=== PATIENT | male | born 1955 | race Caucasian/White ===

== ENCOUNTER 2024-02-23 19:19 | Inpatient (IN) | payer MEDICARE, SELFPAY ==
[2024-02-23] VITALS (8 sets, daily range): BP systolic 99–132; BP diastolic 53–80; PULSE 50–81; RESP 16–26; TEMP 37; O2SAT 95–97; BMI 31.3
--- NOTE | ~2024-02-23 | XR_ITS ---
EXAMINATION: XR CHEST CLINICAL INFORMATION: Weakness. COMPARISON: None available. TECHNIQUE: Frontal view of the chest was obtained. FINDINGS: Mild atelectasis at the right lung base with slight elevation of the right hemidiaphragm. Lungs otherwise clear. Cardiac and mediastinal contours are normal. No consolidation, pneumothorax, or pleural effusion. XR/XR chest 1V IMPRESSION: Mild right basilar atelectasis. No acute pulmonary findings.
--- NOTE | ~2024-02-23 | CT_ITS ---
EXAMINATION: CT ABDOMEN AND PELVIS WITHOUT IV CONTRAST CLINICAL INFORMATION: Abdominal pain, concern for stone COMPARISON: None TECHNIQUE: Multiple axial images were obtained from the superior aspect of the liver through the pubic symphysis without intravenous contrast. Images were evaluated on independent dedicated 3-D workstation and 3-D images were reconstructed with concurrent radiologist supervision and subsequently interpreted. Oral contrast was not administered. This CT examination was performed using dose optimization techniques as appropriate, variously including the following: *Automated exposure control *Adjustment of mA and/or kV according to patient size (this includes techniques or standardized protocols for targeted exams where dose is matched to indication/reason for exam; i.e. extremities or head) *Use of iterative reconstruction technique DLP: 9:30 mGy-cm FINDINGS: LUNG BASES: The visualized lung bases are clear. CARDIOMEDIASTINUM: The visualized heart is normal in size without pericardial effusion. No coronary artery calcification. LIVER: Homogeneous in attenuation. Enlarged measuring 19.6 cm in the midclavicular line.. GALLBLADDER: Dependently layering gallstone without CT evidence of cholecystitis. BILIARY SYSTEM: No intrahepatic or extrahepatic biliary dilation. PANCREAS: Homogeneous in attenuation. SPLEEN: Enlarged measuring 14.6 cm. GENITOURINARY: No contour deforming masses. Nonspecific perinephric stranding. No perinephric fluid collection. No renal calculi. No hydroureteronephrosis. Contracted and circumferentially thickened urinary bladder with perivesicular stranding. ADRENAL GLANDS: Unremarkable. REPRODUCTIVE: Prostate present. GASTROINTESTINAL: The visualized alimentary tract is normal in course. Pancolonic diverticular disease without diverticulitis. No evidence of obstruction. APPENDIX: The appendix is not visualized; however, no pericecal inflammatory changes are seen in the right lower quadrant. PERITONEUM: No pneumoperitoneum. No intra-abdominal fluid collection. VASCULATURE: No abdominal aortic aneurysm. Moderate infrarenal aortic atherosclerotic calcifications. LYMPH NODES: No pathologically enlarged abdominal or pelvic lymph nodes. SOFT TISSUES/MUSCULOSKELETAL: Multilevel degenerative changes of the thoracolumbar spine, most pronounced at L5-S1 where there is moderate bilateral neuroforaminal stenosis secondary to a disc osteophyte complex. Multilevel facet arthropathy. CT/CT abdomen pelvis wo IV con IMPRESSION: 1. Cystitis. No renal calculi are obstructive uropathy. 2. Cholelithiasis without CT evidence of cholecystitis. Fleischner guidelines were followed.
--- NOTE | 2024-02-23 19:33 | MHC.EDTECH ---
Patient came in by ambulance,patient requested to keep shirt on,event host placed,vitals taken,call perez in reach
--- NOTE | 2024-02-23 19:46 | ED_ITS ---
HPI - General Adult General Chief complaint: General Medical Stated complaint: dx of UTI on . No relief with medication Time Seen by Provider: 02/23/24 19:46 Source: patient and EMS Mode of arrival: EMS Limitations: no limitations History of Present Illness HPI narrative: Patient is a 68 year old assigned male at with a history of UTI presently on macrobid presenting to the emergency department today with worsening weakness, dizziness, and continued UTI symptoms. Patient states that he has been on an antibiotic for 3 days for a UTI and his symptoms have not improved. Patient states that he is having lower abdominal pain, weakness, and dizziness. Patient denies any lightheadedness, nausea, vomiting, fever, chills, blurry vision, double vision, loss of vision, chest pain, difficulty breathing, shortness of breath, back pain, night sweats, blood in his urine or stool, syncope or a near syncopal episode, recent trauma or falls, bowel incontinence, bladder incontinence, bowel retention, bladder retention, or any other complaints at this time. Onset (ago): day(s) Relieving factors: none Exacerbating factors: none Associated symptoms: denies other symptoms Treatments prior to arrival: other (macrobid x3 days) Related Data Home Medications ?Medication ?Instructions ?Recorded ?Confirmed rosuvastatin 20 mg tablet 10 mg PO DAILY 02/24/24 02/24/24 Allergies Allergy/AdvReac Type Severity Reaction Status Date / Time No Known Allergies Allergy Verified 02/23/24 19:32 Review of Systems 2 Constitutional: Constitutional: Reports no additional constitutional complaints, Denies chills, Denies fever(s) and Denies night sweats Eyes: Eyes: Reports no additional eye complaints, Denies blurry vision, Denies change in vision, Denies diplopia, Denies eye discharge, Denies loss of vision and Denies eye pain ENT: Denies dizziness Cardiovascular: Cardiovascular: Reports no additional cardiovascular complaints, Denies chest pain, Denies lightheadedness, Denies Loss of Consciousness and Denies dyspnea Respiratory: Respiratory: Reports no additional respiratory complaints and Denies dyspnea Gastrointestinal: Gastrointestinal: Reports no additional gastrointestinal complaints, Reports abdominal pain, Denies melena, Denies hematochezia, Denies change in bowel habits and Denies change in stool character Genitourinary: Genitourinary: Reports no additional male genitourinary complaints, Denies hematuria, Denies oliguria, Denies difficulty urinating, Reports dysuria, Reports urinary frequency, Denies urinary hesitancy, Denies urinary incontinence and Denies urinary urgency Musculoskeletal: Musculoskeletal: Reports no additional musculoskeletal complaints, Denies numbness and Denies tingling Neurologic: Denies dizziness, Denies loss of vision, Denies numbness and Denies tingling Psychiatric: Psychiatric: Reports no additional psychiatric complaints Endocrine: Endocrine: Reports no additional endocrine complaints Hematologic/Lymphatic: Hematologic/Lymphatic: Reports no additional hematologic/lymphatic complaints Allergic/Immunologic: Allergic/Immunologic: Reports no additional allergic/immunologic complaints PMFSH Past Medical History Attestation statement: The following information was validated with the patient. Source: old records reviewed and nursing notes reviewed Medical History (Updated 02/24/24 @ 02:09 by Irina Mcdaniel MD) Hyperlipidemia Essential hypertension Obstructive sleep apnea on CPAP Surgical History (Updated 02/24/24 @ 02:09 by Irina Mcdaniel MD) Previous back surgery H/O knee surgery History of ankle surgery S/P appendectomy Social History Social History Advance Directives: No Advance Directives Information Provided: No Do you have a plan to hurt others: No Plan Physical Exam ED Vital Signs: Vital Signs - 24 hr 02/23/24 19:30 02/23/24 20:07 02/23/24 20:45 Temperature 98.6 F 98.6 F Pulse Rate 72 60 66 Respiratory Rate 26 H 20 20 Blood Pressure 130/70 116/61 105/55 L Pulse Oximetry 96 96 96 Oxygen Delivery Method Room Air Room Air Room Air 02/23/24 21:17 02/23/24 21:36 02/23/24 22:07 Temperature Pulse Rate 54 52 50 Respiratory Rate 18 18 18 Blood Pressure 99/54 L 106/54 L 101/53 L Pulse Oximetry 96 96 96 Oxygen Delivery Method Room Air Room Air Room Air 02/23/24 23:25 Temperature Pulse Rate 51 Respiratory Rate 16 Blood Pressure 117/68 Pulse Oximetry 97 Oxygen Delivery Method Room Air BMI result Body Mass Index 31.3 Const General: cooperative, no acute distress, alert and awake Nutritional Appearance: well nourished Orientation/consciousness: patient oriented x3 Limitations: no limitations HENMT Head: Yes normal to inspection and Yes atraumatic Ears: hearing grossly normal bilaterally and external ears normal General nose exam: Normal external nose present, no nasal discharge noted and no epistaxis Face and sinus: Yes normal facial exam, No abrasion and No laceration Mouth: Normal oral and palatal mucosa present, no drooling and no muffled voice Eyes General: appearance normal, both eyes and all related structures Periorbital: periorbital findings normal Eyelids: Yes eyelids normal Conjunctivae: conjunctivae normal Pupils: Equal, round and reactive pupils present EOM: EOMs intact bilaterally Neck Neck: Yes normal visual inspection, Yes full ROM and Yes no lymphadenopathy Chest Chest palpation & inspection: normal inspection of the chest Resp Effort & Inspection: normal respiratory effort and able to speak in complete sentences GI Inspection: Yes normal to inspection Palpation (GI): Soft to palpation, not firm, Tenderness to palpation present (GI) suprapubicly, no guarding and not rigid Neuro General: patient oriented x3 and moves all extremities Cranial nerves: Yes Equal, round and reactive pupils present Cognition (Neuro): normal cognition Motor exam (neuro): 5/5 motor strength present throughout Sensory Exam: Normal double simultaneous stimulation for sensation Coordination: [id number] test normal Extrem General: Yes normal to inspection, Yes full ROM and Yes capillary refill normal Psych Appearance: grossly normal Mental Status: mental status grossly normal Affect: normal affect Attitude: cooperative Thought process: Normal thought process present Thought content: Normal thought content present Insight: Good insight present (Psych) Medications Administered Generic Name Dose Route Start Last Admin Trade Name Freq PRN Reason Stop Dose Admin Lactated Ringer's 1,000 mls @ 125 mls/hr 02/24/24 01:15 02/24/24 01:19 Lr IVCONT 02/24/24 13:14 125 mls/hr .Q8H SIMONE Administration Discontinued Medications Generic Name Dose Route Start Last Admin Trade Name Freq PRN Reason Stop Dose Admin Acetaminophen 975 mg 02/23/24 19:58 02/23/24 20:11 Acetaminophen 325 Mg Tablet PO 02/23/24 19:59 975 mg ONCE ONE Administration Sodium Chloride 1,000 mls @ 999 mls/hr 02/23/24 20:00 02/23/24 21:24 Ns IV 02/23/24 21:00 Infused .Q1H1M SIMONE Infusion Ceftriaxone Sodium 1 gm/ 50 mls @ 100 mls/hr 02/23/24 19:52 02/23/24 20:40 Sodium Chloride IV 02/23/24 20:21 Infused ONCE ONE Infusion Sodium Chloride 1,000 mls @ 999 mls/hr 02/23/24 21:30 02/24/24 00:32 Ns IV 02/23/24 22:30 Infused .Q1H1M SIMONE Infusion Potassium Chloride 10 meq in 100 mls @ 100 mls/hr 02/23/24 21:30 02/23/24 23:23 Potassium Chloride/H20 IV 02/23/24 23:29 Infused Q1H SIMONE Infusion Ketorolac Tromethamine 15 mg 02/23/24 19:58 02/23/24 20:10 Ketorolac Tromethamine 15 Mg/Ml Vial IVPUSH 02/23/24 19:59 15 mg ONCE ONE Administration Ondansetron HCl 4 mg 02/23/24 19:51 02/23/24 20:06 Ondansetron Hcl 4 Mg/2 Ml Vial IVPUSH 02/23/24 19:52 4 mg ONCE ONE Administration Medical Decision Making Medical Decision Making [facility] Narrative: Patient is a 68 year old assigned male at with a history of UTI presently on macrobid presenting to the emergency department today with worsening weakness, dizziness, and continued UTI symptoms. Patient's physical exam was as noted in the physical exam portion of this note. Patient's blood work showed a sodium of 134, potassium of 2.9, BUN of 22, magnesium of 1.5, total bili of 1.7, and direct bili of 0.7. Patient's urine showed no acute process. Patient's EKG was unremarkable. Patient's chest x-ray showed no acute process. Patient's CT abdomen/pelvis showed cystitis and cholelithiasis with no cholecystitis. Patient's clincal presentation is not consistent with sepsis (@0026). Patient was given IV ceftriaxone, potassium, and fluids. I spoke to the hospitalist who agreed to admission for continued IV antibiotics and electrolyte replenishment. I explained my physical exam findings as well as all test results to the patient. I answered all questions asked by the patient. Patient verbalized agreement and understanding with this treatment plan and admission. Differential Diagnosis Differential Diagnoses: The differential diagnosis associated with the presentation includes Urinary tract infection Cystitis Hypomagensemia Hypokalemia Hyponatremia Admission/Observation Consideration of admission/observation: Escalation of care including admission/observation considered Patient admitted. Consult Healthcare Provider Management of the patient was discussed with: Hospitalist (agreed to admission as noted in the MDM Rationale portion of this note.) Lab Data [facility] Lab Attestation statement: I reviewed the patient's lab results. My interpretation of these results are in the MDM Rationale portion of this note. 02/23/24 19:49 02/23/24 19:49 Labs: Lab Results 02/23/24 02/23/24 02/23/24 Range/Units 19:49 21:14 23:39 WBC 5.9 (4.8-10.8) X10*3/uL RBC 4.08 L (4.60-5.80) X10*6/uL Hgb 13.2 L (14.0-18.0) g/dl Hct 35.7 L (42.0-52.0) % MCV 87.5 (80.0-98.0) fL MCH 32.4 (27.0-33.0) pg MCHC 37.0 H (31.0-36.0) g/dl RDW 12.7 (11.0-16.0) % Plt Count 121 L (160-400) X10*3/uL MPV 11.6 (9.4-12.4) fL Immature Gran % (Auto) 0.7 H (0.0-0.4) % Neut % (Auto) 75.3 H (45-73) % Lymph % (Auto) 8.5 L (20-40) % [place] % (Auto) 14.9 H (2-11) % Eos % (Auto) 0.3 (0-4) % Baso % (Auto) 0.3 (0-2) % Lymph # (Auto) 0.5 L (1.2-4.9) X10*3/uL [place] # (Auto) 0.9 (0.1-1.2) X10*3/uL Eos # (Auto) 0.0 (0.0-0.4) X10*3/uL Baso # (Auto) 0.0 (0.0-0.2) X10*3/uL Abs Immat Gran (auto) 0.04 H (0.00-0.03) X10*3/uL Absolute Neuts (auto) 4.5 (2.0-8.3) x10*3/uL Absolute Nucleated RBC 0.030 H (0.0-0.012) X10*3/uL Nucleated RBC % (auto) 0.5 H (0.0-0.2) /100WBC Smear Tech's Comments VERIFIED Sodium 134 L (135-145) mmol/L Potassium 2.9 L* (3.3-5.1) mmol/L Chloride 99 (96-108) mmol/L Carbon Dioxide 23 (22-29) mmol/L Anion Gap 15 (12-20) BUN 22 H (9-16) mg/dL Creatinine 1.01 (0.5-1.4) mg/dL Estim Creat Clear Calc 97.6 Estimated GFR > 60 Random Glucose 150 H (60-115) mg/dL Lactic Acid 1.1 (0.5-2.0) mmol/L Calcium 9.3 (8.4-10.2) mg/dL Magnesium 1.5 L (1.6-2.6) mg/dL Total Bilirubin 1.7 H (0.0-1.0) mg/dL Direct Bilirubin 0.7 H (0.0-0.5) mg/dL AST 36 (5-37) U/L ALT 33 (0-40) U/L Alkaline Phosphatase 44 (39-117) U/L Troponin I High Sens 11.1 6.7 (<3.5-35.0) ng/L Total Protein 6.8 (6.5-8.0) g/dL Albumin 3.7 (3.5-5.0) g/dL Urine Color Dark Yellow Urine Appearance Clear Urine pH 6.0 (5.0-9.0) Ur Specific [place] 1.025 (1.005-1.025) Urine Protein 100 (2+) H (Neg-Trace) mg/dL Urine Glucose (UA) Negative (Negative) mg/dL Urine Ketones Trace (Negative) mg/dL Urine Blood Negative (Negative) Urine Nitrite Negative (Negative) Ur Leukocyte Esterase Trace H (Negative) Urine RBC 0-2 (0-2) /HPF Urine WBC 0-5 (0-5) /HPF Ur Squamous Epith Cells 3-5 (0-2) /HPF Urine Bacteria None Seen (None Seen) Hyaline Casts 3-5 (0-2) /LPF Influenza Type A (PCR) NEGATIVE (Negative) Influenza Type B (PCR) NEGATIVE (Negative) RSV RNA Qual (PCR) NEGATIVE (Negative) SARS-CoV-2 RNA (RT-PCR) NEGATIVE (Negative) Independent Interpretation I performed an independent interpretation of an: EKG, Plain X-Ray and CT Scan Interpretation: My interpretation is in agreement with the radiologist's impression of these imaging studies. - EXAMINATION: XR CHEST CLINICAL INFORMATION: Weakness. COMPARISON: None available. TECHNIQUE: Frontal view of the chest was obtained. FINDINGS: Mild atelectasis at the right lung base with slight elevation of the right hemidiaphragm. Lungs otherwise clear. Cardiac and mediastinal contours are normal. No consolidation, pneumothorax, or pleural effusion. XR/XR chest 1V IMPRESSION: Mild right basilar atelectasis. No acute pulmonary findings. Dictated By: Harvinder Downing MD Signed By: Electronically signed by Harvinder Downing MD 02/24/24 0035 - EXAMINATION: CT ABDOMEN AND PELVIS WITHOUT IV CONTRAST CLINICAL INFORMATION: Abdominal pain, concern for stone COMPARISON: None TECHNIQUE: Multiple axial images were obtained from the superior aspect of the liver through the pubic symphysis without intravenous contrast. Images were evaluated on independent dedicated 3-D workstation and 3-D images were reconstructed with concurrent radiologist supervision and subsequently interpreted. Oral contrast was not administered. This CT examination was performed using dose optimization techniques as appropriate, variously including the following: *Automated exposure control *Adjustment of mA and/or kV according to patient size (this includes techniques or standardized protocols for targeted exams where dose is matched to indication/reason for exam; i.e. extremities or head) *Use of iterative reconstruction technique DLP: 9:30 mGy-cm FINDINGS: LUNG BASES: The visualized lung bases are clear. CARDIOMEDIASTINUM: The visualized heart is normal in size without pericardial effusion. No coronary artery calcification. LIVER: Homogeneous in attenuation. Enlarged measuring 19.6 cm in the midclavicular line.. GALLBLADDER: Dependently layering gallstone without CT evidence of cholecystitis. BILIARY SYSTEM: No intrahepatic or extrahepatic biliary dilation. PANCREAS: Homogeneous in attenuation. SPLEEN: Enlarged measuring 14.6 cm. GENITOURINARY: No contour deforming masses. Nonspecific perinephric stranding. No perinephric fluid collection. No renal calculi. No hydroureteronephrosis. Contracted and circumferentially thickened urinary bladder with perivesicular stranding. ADRENAL GLANDS: Unremarkable. REPRODUCTIVE: Prostate present. GASTROINTESTINAL: The visualized alimentary tract is normal in course. Pancolonic diverticular disease without diverticulitis. No evidence of obstruction. APPENDIX: The appendix is not visualized; however, no pericecal inflammatory changes are seen in the right lower quadrant. PERITONEUM: No pneumoperitoneum. No intra-abdominal fluid collection. VASCULATURE: No abdominal aortic aneurysm. Moderate infrarenal aortic atherosclerotic calcifications. LYMPH NODES: No pathologically enlarged abdominal or pelvic lymph nodes. SOFT TISSUES/MUSCULOSKELETAL: Multilevel degenerative changes of the thoracolumbar spine, most pronounced at L5-S1 where there is moderate bilateral neuroforaminal stenosis secondary to a disc osteophyte complex. Multilevel facet arthropathy. CT/CT abdomen pelvis wo IV con IMPRESSION: 1. Cystitis. No renal calculi are obstructive uropathy. 2. Cholelithiasis without CT evidence of cholecystitis. Fleischner guidelines were followed. Dictated By: Quirino Liriano Signed By: Electronically signed by Quirino Liriano 02/23/24 2205 - Vent. Rate: 052 BPM Atrial Rate: 052 BPM P-R Int: 158 ms QRS Dur: 110 ms QT Int: 476 ms P-R-T Axes: 035 -38 -13 degrees QTc Int: 442 ms Sinus bradycardia Left axis deviation Nonspecific ST and T wave abnormality Abnormal ECG No previous ECGs available DD/ [id number] Radiology Impression Discussion of test interpretation with radiology: I have reviewed the radiologist's reading. Independent Historian Clinical information obtained from an independent historian. History obtained from or confirmed by: EMS (EMS provided additional history and confirmed the history provided by the patient.) Critical Care Time Critical Care Time Critical Care Time: Yes Total Critical Care Time: 122 Attestation: I spent 122 minutes of Critical Care Time with this patient. This does not include time spent on separately reported billable procedures. Discharge Plan Discharge Clinical Impression: Acute UTI, Hypomagnesemia, Hypokalemia Patient Disposition: Admitted As Inpatient Interventions: Admission Worksheet (ED) Last Done: 02/24/24 02:09
[2024-02-23] MEDS: ondansetron HCL 4 MG/2 ML VIAL IVPUSH (20:06)
[2024-02-23] MEDS: 0.9 % Sodium Chloride 1,000 ML 999 ML IV ×2 (20:06→21:28)
[2024-02-23] MEDS: cefTRIAXone sodium 1 GM in 0.9 % Sodium Chloride 50 ML IV (20:07)
[2024-02-23] MEDS: Ketorolac Tromethamine 15 MG/ML VIAL IVPUSH (20:10)
[2024-02-23] MEDS: Acetaminophen 325 MG TABLET 975 MG PO (20:11)
[2024-02-23 20:33] LABS: Lactic Acid 1.1 mmol/L (0.5-2.0)
[2024-02-23 20:42] LABS: Influenza A PCR NEGATIVE (Negative); Influenza B PCR NEGATIVE (Negative); Resp Syncy Virus RNA Qual PCR NEGATIVE (Negative); SARS COV2 PCR INHOUSE NEGATIVE (Negative)
--- NOTE | 2024-02-23 20:47 | MHC.EDTECH ---
Patient requested ice water,vitals taken,patient is attempted to give a urine sample at this time.
[2024-02-23 20:49] LABS: Alanine Aminotransferase 33 U/L (0-40); Albumin Level 3.7 g/dL (3.5-5.0); Alkaline Phosphatase 44 U/L (39-117); Anion Gap 15 (12-20); Aspartate Amino Transferase 36 U/L (5-37); Bilirubin Direct 0.7 mg/dL (0.0-0.5); Bilirubin Total 1.7 mg/dL (0.0-1.0); Blood Urea Nitrogen 22 mg/dL (9-16); Calcium 9.3 mg/dL (8.4-10.2); Carbon Dioxide 23 mmol/L (22-29); Chloride 99 mmol/L (96-108); Creatinine Clr Calc Pharmacy 97.6; Estimated Glomerular Filt Rate > 60; Glucose Random 150 mg/dL (60-115); Magnesium 1.5 mg/dL (1.6-2.6); Potassium 2.9 mmol/L (3.3-5.1); Sodium 134 mmol/L (135-145); Total Protein 6.8 g/dL (6.5-8.0)
--- NOTE | 2024-02-23 21:15 | MHC.EDTECH ---
Patient urinated 200MLS in urinal,urine sample collected and sent to lab.
--- NOTE | 2024-02-23 21:17 | MHC.EDTECH ---
Vitals taken,BP is low 99/54 HR 54 RN was made aware
--- NOTE | 2024-02-23 21:19 | PC.NURSE ---
Provider made aware of BP trending down. Plan for additional Nacl bolus.
[2024-02-23 21:23] LABS: Appearance Urine Clear; Color Urine Dark Yellow; Glucose Urine UA Negative (Negative); Leukocyte Esterase Urine Trace (Negative); Nitrite Urine Negative (Negative); Specific Gravity - Urine 1.025 (1.005-1.025); UMIC TRIGGER UACC YES; Urine Blood Negative (Negative); Urine Ketones Trace mg/dL (Negative); Urine Protein 100 (2+) mg/dL (Neg-Trace)
[2024-02-23] MEDS: Potassium Chloride/H20 10 MEQ/100 ML PIGGYBACK 100 MEQ IV ×2 (21:27→22:25)
[2024-02-23 21:29] LABS: Basophils Percent Auto 0.3 % (0-2); Eosinophils Percent Auto 0.3 % (0-4); Hematocrit 35.7 % (42.0-52.0); Hemoglobin 13.2 g/dl (14.0-18.0); Imm Gran Abs Auto 0.04 X10*3/uL (0.00-0.03); Imm Gran Pct Auto 0.7 % (0.0-0.4); Lymphocytes Absolute Auto 0.5 X10*3/uL (1.2-4.9); Lymphocytes Percent Auto 8.5 % (20-40); MANUAL DIFF FLAG SCAN; Mean Corpuscular Hemoglobin 32.4 pg (27.0-33.0); Mean Corpuscular Volume 87.5 fL (80.0-98.0); Mean Platelet Volume 11.6 fL (9.4-12.4); Monocytes Absolute Auto 0.9 X10*3/uL (0.1-1.2); Monocytes Percent Auto 14.9 % (2-11); NRBC Pct Auto 0.5 /100WBC (0.0-0.2); Neutrophils Absolute Auto 4.5 x10*3/uL (2.0-8.3); Neutrophils Percent Auto 75.3 % (45-73); PLT CLUMP 1; Red Blood Count 4.08 X10*6/uL (4.60-5.80); Red Cell Distribution Width 12.7 % (11.0-16.0); SCAN SMEAR FLAG 1
[2024-02-23 21:31] LABS: Bacteria Urine None Seen (None Seen); RBC Urine 0-2 /HPF (0-2); WBC Urine 0-5 /HPF (0-5)
[2024-02-23 21:46] LABS: Platelet Count 121 X10*3/uL (160-400); SLIDE REVIEW VERIFIED; White Blood Count 5.9 X10*3/uL (4.8-10.8)
--- NOTE | 2024-02-23 22:53 | PC.NURSE ---
Update given to [place] pt significant other.
--- NOTE | 2024-02-23 22:58 | ECG_ITS ---
Test Reason : diaphoresis Blood Pressure : / mmHG Vent. Rate : 052 BPM Atrial Rate : 052 BPM P-R Int : 158 ms QRS Dur : 110 ms QT Int : 476 ms P-R-T Axes : 035 -38 -13 degrees QTc Int : 442 ms Sinus bradycardia Left axis deviation Nonspecific ST and T wave abnormality Abnormal ECG No previous ECGs available Referred By: Mirta Gutierrez Electronically Signed By:KARINE GARCIA
[2024-02-23 23:24] LABS: Troponin-I High Sensitivity 11.1 ng/L (<3.5-35.0)
[2024-02-24] VITALS (7 sets, daily range): BP systolic 97–140; BP diastolic 54–75; PULSE 43–64; RESP 18–20; TEMP 36.3–36.4; O2SAT 96–98
[2024-02-24 00:06] LABS: Troponin-I High Sensitivity 6.7 ng/L (<3.5-35.0)
--- NOTE | 2024-02-24 01:08 | P.HPHOSP_ITS ---
History of Present Illness Date of Service: 02/24/24 Attending physician on admission: Irina Mcdaniel Chief Complaint: Fatigue Zach Ortiz is a very pleasant 68 years old man with past medical history significant for hypertension on (hydrochlorothiazide and carvedilol), DARIAN on CPAP and hyperlipidemia presents to the emergency department complaining of fatigue and generalized malaise. He had fever spike last night of 103. He was diagnosed with UTI last and has been taking a course of nitrofurantoin as he has been having acute urinary symptoms including urinary frequency, pain with urination noted his urine was dark. No urinalysis done. He reported discomfort to the lower abdomen and I sore throat, ear pain, chest pain, shortness on breath or cough. He also denied diarrhea or constipation. Denies tobacco smoking, alcohol abuse or illicit drug use. Abdominal surgery history is remarkable for appendectomy. In the ED, he was found to have stable vital signs. There is no fever or tachycardia reported. His heart rate has been fluctuating between 50 and 66 bpm. Blood workup showed no leukocytosis. There is monocytosis and lymphopenia. Potassium is 2.9 and magnesium is 1.7. Total bilirubin is 1.7 (direct 0.7). Transaminases, alk-phos and albumin are normal. Troponin is negative x2. Urinalysis showed protein 2+, trace ketones, negative blood, negative nitrate, trace leukocytes steroids, RBC 0-2, WBCs 0-2, and 3-5 epithelial cells. CXR is negative for infection. Abdominal pelvis CT scan with IV contrast showed findings consistent with cystitis, no obstructive uropathy and cholelithiasis without CT evidence of cholecystitis. ED tx: NS 2 L bolus, Zofran 4 mg IV, ceftriaxone 1 g, ketorolac 15 mg IV, acetaminophen 975 mg p.o. and KCl. Review of Systems 2 Review of Systems: All 12 systems were reviewed and normal except as noted in HPI. [facility] Medical History (Updated 02/24/24 @ 02:09 by Irina Mcdaniel MD) Hyperlipidemia Essential hypertension Obstructive sleep apnea on CPAP Surgical History (Updated 02/24/24 @ 02:09 by Irina Mcdaniel MD) Previous back surgery H/O knee surgery History of ankle surgery S/P appendectomy Social History Advance Directives: No Advance Directives Information Provided: No Do you have a plan to hurt others: No Plan Meds Allergies Allergy/AdvReac Type Severity Reaction Status Date / Time No Known Allergies Allergy Verified 02/23/24 19:32 Active Medications: Current Medications Acetaminophen (Acetaminophen Supp 325 Mg Supp.Rect) 975 mg MA Q6H PRN PRN Reason: mild pain, headache or fever Carvedilol (Carvedilol 12.5 Mg Tablet) 12.5 mg PO ONCE ONE; Protocol Stop: 02/25/24 09:01 Lactated Ringer's (Lr) 1,000 mls @ 125 mls/hr IVCONT .Q8H SIMONE Stop: 02/24/24 13:14 Ceftriaxone Sodium 1 gm/ (Sodium Chloride) 50 mls @ 100 mls/hr IV Q24H SIMONE Sodium Chloride (0.9 % Sodium Chloride Flush 3 Ml Syringe) 3 ml IVFLUSH QSHIFT SIMONE Home Medications ?Medication ?Instructions ?Recorded ?Confirmed ?Last Taken ?Type rosuvastatin 20 mg tablet 10 mg PO DAILY 02/24/24 02/24/24 Unknown History Physical Exam 2 Vital Signs and Narrative: Vital Signs: Last Vital Signs Temp 98.6 F 02/23/24 20:45 Pulse 51 02/23/24 23:25 Resp 16 02/23/24 23:25 BP 117/68 02/23/24 23:25 Pulse Ox 97 02/23/24 23:25 O2 Del Method Room Air 02/23/24 23:25 BMI result Body Mass Index 31.3 Constitutional - Awake and Alert, No apparent distress. Sleeping soundly. Acutely ill appearance. Pleasant and cooperative. HEENT - Pupils equally round. Normal sclerae. Heart - Bradycardia. Normal rate. No murmur. Lungs - Normal lung expansion, Normal respiratory effort, No respiratory distress, CTA bilaterally Gastrointestinal - NT / ND; +BS; No rebound or guarding Extremities - no calf tenderness bilaterally, no swelling Musculoskeletal - Normal inspection, normal ROM Skin - Warm/Dry Neurological - Alert & oriented x3. No focal weakness grossly noted Psychological - Appropriate affect Results Labs 02/23/24 19:49 02/23/24 19:49 Labs: Laboratory Results - last 24 hr 02/23/24 02/23/24 02/23/24 19:49 21:14 23:39 MCV 87.5 MCH 32.4 MCHC 37.0 H RDW 12.7 Plt Count 121 L MPV 11.6 Immature Gran % (Auto) 0.7 H Neut % (Auto) 75.3 H Lymph % (Auto) 8.5 L [place] % (Auto) 14.9 H Eos % (Auto) 0.3 Baso % (Auto) 0.3 Lymph # (Auto) 0.5 L [place] # (Auto) 0.9 Eos # (Auto) 0.0 Baso # (Auto) 0.0 Abs Immat Gran (auto) 0.04 H Absolute Neuts (auto) 4.5 Absolute Nucleated RBC 0.030 H Nucleated RBC % (auto) 0.5 H Smear Tech's Comments VERIFIED Anion Gap 15 Estim Creat Clear Calc 97.6 Estimated GFR > 60 Random Glucose 150 H Lactic Acid 1.1 Calcium 9.3 Magnesium 1.5 L Total Bilirubin 1.7 H Direct Bilirubin 0.7 H AST 36 ALT 33 Alkaline Phosphatase 44 Troponin I High Sens 11.1 6.7 Total Protein 6.8 Albumin 3.7 Urine Color Dark Yellow Urine Appearance Clear Urine pH 6.0 Ur Specific [place] 1.025 Urine Protein 100 (2+) H Urine Glucose (UA) Negative Urine Ketones Trace Urine Blood Negative Urine Nitrite Negative Ur Leukocyte Esterase Trace H Urine RBC 0-2 Urine WBC 0-5 Ur Squamous Epith Cells 3-5 Urine Bacteria None Seen Hyaline Casts 3-5 Influenza Type A (PCR) NEGATIVE Influenza Type B (PCR) NEGATIVE RSV RNA Qual (PCR) NEGATIVE SARS-CoV-2 RNA (RT-PCR) NEGATIVE Imaging Radiologist's Impressions: Impressions Abdomen/Pelvis CT 02/23/24 20:28 IMPRESSION: 1. Cystitis. No renal calculi are obstructive uropathy. 2. Cholelithiasis without CT evidence of cholecystitis. Fleischner guidelines were followed. Chest X-Ray 02/23/24 22:56 IMPRESSION: Mild right basilar atelectasis. No acute pulmonary findings. Assessment and Plan (1) Hypokalemia: Status: Acute (2) Hypomagnesemia: Status: Acute (3) Acute UTI: Status: Acute (4) Obstructive sleep apnea on CPAP: Status: Acute (5) Essential hypertension: Status: Acute (6) Hyperlipidemia: Qualifiers: Hyperlipidemia type: unspecified Qualified Code(s): E78.5 - Hyperlipidemia, unspecified Status: Acute (7) Cholelithiasis: Qualifiers: Cholecystitis presence: without cholecystitis Biliary obstruction: w ithout biliary obstruction Cholelithiasis location: gallbladder Qualified Code(s): K80.20 - Calculus of gallbladder without cholecystitis without obstruction Status: Acute Plan Zach Ortiz is a 68 y/o man admitted with: * Fever, fatigue, urinary symptoms and generalized malaise presumed to be secondary to UTI. Admit to hospitalist service. Start IV fluids. Continue empiric IV antibiotic therapy with ceftriaxone 1 g IV daily. Check urine culture (UA not showing abuse findings of UTI but possibly due to recent use of nitrofurantoin/partially treated UTI). Blood culture obtained in the emergency department to assess for bacteremia. * Hypomagnesemia and hypokalemia. Likely secondary to HCTZ use. Hold HCTZ for now. Replete as needed. Continue to monitor electrolytes. * Sinus bradycardia. Likely secondary to carvedilol. Continue to monitor. * Hyperlipidemia. Continue statin. * Essential hypertension. Continue carvedilol (if HR allows). * Obstructive sleep apnea. CPAP at nighttime * Cholelithiasis. Incidental finding on CT scan. No signs or symptoms of cholecystitis. * Isolated direct hyperbilirubinemia. Normal transaminases and alk-phos. Possibly bile excretion syndrome. Continue to monitor. Code status: Full Prophylaxis: SCDs. Early ambulation. Patient will need hospitalization for at least 2 midnights for presumed UTI failing outpatient therapy management with IV fluids and empiric IV antibiotic therapy. Patient will also need further evaluation with blood cultures to assess for bacteremia. Quality Stroke Does the patient have a stroke diagnosis?: No VTE Prior VTE?: No VTE Risk Level:: Medical - moderate - high VTE Device Contraindication: N/A - Device Ordered VTE Drug Contraindication: Treatment Not Indicated
[2024-02-24] MEDS: Lactated Ringers 1,000 ML 125 ML IVCONT ×2 (01:19→08:40)
[2024-02-24] MEDS: Magnesium Sulfate/H2O 2 GM/50 ML PIGGYBACK IV (02:37)
--- NOTE | 2024-02-24 02:41 | PC.NURSE ---
Medicated per DEC. Pharmacy contacted regarding compatibility between Mag and LR. Per Pharmacy, Mag and LR are compatible. Pt resting comfortably in bed asleep at this time. Awaiting bed assignment.
[2024-02-24 02:58] LABS: Gamma Glutamyl Transpeptidase 35 U/L (11-51)
[2024-02-24 06:56] LABS: MANUAL DIFF FLAG NO
[2024-02-24 07:18] LABS: Basophils Percent Auto 0.7 % (0-2); Eosinophils Absolute Auto 0.1 X10*3/uL (0.0-0.4); Eosinophils Percent Auto 2.1 % (0-4); Hematocrit 34.6 % (42.0-52.0); Hemoglobin 12.5 g/dl (14.0-18.0); Imm Gran Abs Auto 0.02 X10*3/uL (0.00-0.03); Imm Gran Pct Auto 0.5 % (0.0-0.4); Lymphocytes Percent Auto 24.5 % (20-40); Mean Corpuscular HGB Conc 36.1 g/dl (31.0-36.0); Mean Corpuscular Hemoglobin 32.3 pg (27.0-33.0); Mean Corpuscular Volume 89.4 fL (80.0-98.0); Mean Platelet Volume 11.1 fL (9.4-12.4); Monocytes Absolute Auto 0.8 X10*3/uL (0.1-1.2); Monocytes Percent Auto 19.1 % (2-11); Neutrophils Absolute Auto 2.3 x10*3/uL (2.0-8.3); Neutrophils Percent Auto 53.1 % (45-73); Platelet Count 115 X10*3/uL (160-400); Red Blood Count 3.87 X10*6/uL (4.60-5.80); Red Cell Distribution Width 13.1 % (11.0-16.0); White Blood Count 4.2 X10*3/uL (4.8-10.8)
[2024-02-24 07:28] LABS: Alanine Aminotransferase 32 U/L (0-40); Albumin Level 3.4 g/dL (3.5-5.0); Alkaline Phosphatase 40 U/L (39-117); Anion Gap 13 (12-20); Aspartate Amino Transferase 35 U/L (5-37); Bilirubin Total 1.2 mg/dL (0.0-1.0); Blood Urea Nitrogen 21 mg/dL (9-16); Calcium 9.1 mg/dL (8.4-10.2); Carbon Dioxide 27 mmol/L (22-29); Chloride 103 mmol/L (96-108); Creatinine Clr Calc Pharmacy 107.1; Estimated Glomerular Filt Rate > 60; Glucose Random 112 mg/dL (60-115); Potassium 3.6 mmol/L (3.3-5.1); Sodium 139 mmol/L (135-145); Total Protein 6.3 g/dL (6.5-8.0)
[2024-02-24] MEDS: Omeprazole 20 MG CAPSULE.DR PO (08:39)
--- NOTE | 2024-02-24 09:11 | PHA.MEDREC ---
Pharmacy Consult ? Medication Reconciliation Pharmacy has completed the medication reconciliation.
[2024-02-24] MEDS: Ketorolac Tromethamine 15 MG/ML VIAL IVPUSH (09:31)
[2024-02-24 10:09] LABS: Magnesium 2.1 mg/dL (1.6-2.6)
--- NOTE | 2024-02-24 11:17 | P.PNIM_ITS ---
Subjective Subjective Date of Service: 02/24/24 Interval History: Seen and examined this morning Follow-up for UTI Patient was diagnosed with UTI as outpatient and started on Macrobid, he took 2 days but continued to have urinary symptoms, generalized weakness with subsequent fall. Had fever at home up to 103 and what sounds like rigors. Today patient's weakness has improved has no further chills or fever Review of Systems Review of Systems: Yes all other systems are reviewed and are negative Constitutional Constitutional: Denies chills and Denies fever(s) ENT Ears, Nose, Mouth, and Throat: Denies dizziness Cardiovascular Cardiovascular: Denies chest pain and Denies palpitations Neurologic Neurologic: Denies dizziness Endocrine Endocrine: Denies palpitations Physical Exam 2 Vital Signs: Vital Signs: Last Vital Signs Temp 97.5 F 02/24/24 07:38 Pulse 57 02/24/24 07:38 Resp 18 02/24/24 07:38 BP 140/75 H 02/24/24 07:38 Pulse Ox 97 02/24/24 07:38 O2 Del Method Room Air 02/24/24 07:38 BMI result Body Mass Index 31.3 Const: Other: General-patient observed sitting up in bed, awake, alert, in no acute distress. He is oriented x3 Cardiovascular-regular rate and rhythm GI-abdomen soft, nontender, nondistended, positive bowel sounds present -no CVA tenderness Pulmonary-lungs are clear to auscultation bilaterally with no wheezes rhonchi or rales Neuro-cranial nerves 2-12 are grossly intact with no focal deficits, able to move all 4 extremities spontaneously Extremities-no lower extremity edema Skin-warm and dry with no rashes Objective Data Active Medications Acetaminophen (Acetaminophen Supp 325 Mg Supp.Rect) 975 mg DE Q6H PRN PRN Reason: mild pain, headache or fever Atorvastatin Calcium (Atorvastatin Calcium 40 Mg Tablet) 40 mg PO BEDTIME SIMONE Carvedilol (Carvedilol 12.5 Mg Tablet) 12.5 mg PO ONCE ONE; Protocol Stop: 02/25/24 09:01 Carvedilol (Carvedilol 12.5 Mg Tablet) 12.5 mg PO BID SIMONE; Protocol Lactated Ringer's (Lr) 1,000 mls @ 125 mls/hr IVCONT .Q8H SIMONE Stop: 02/24/24 13:14 Last Admin: 02/24/24 08:40 Dose: 125 mls/hr Documented By: HARPAL Ceftriaxone Sodium 1 gm/ (Sodium Chloride) 50 mls @ 100 mls/hr IV Q24H [facility] Omeprazole (Omeprazole 20 Mg Capsule.Dr) 20 mg PO DAILY@0630 [facility] Sodium Chloride (0.9 % Sodium Chloride Flush 3 Ml Syringe) 3 ml IVFLUSH QSHIFT [facility] Last Admin: 02/24/24 07:01 Dose: Not Given Documented By: HARPAL Non-Admin Reason: IV Running Tramadol HCl (Tramadol Hcl 50 Mg Tablet) 50 mg PO BID PRN PRN Reason: Pain, Moderate(Pain Scale 4-6) Trazodone HCl (Trazodone Hcl 100 Mg Tablet) 100 mg PO BEDTIME [facility] Labs 02/24/24 06:51 02/24/24 06:51 Labs: Laboratory Results - last 24 hr 02/23/24 02/23/24 02/23/24 19:49 21:14 23:39 MCV 87.5 MCH 32.4 MCHC 37.0 H RDW 12.7 Plt Count 121 L MPV 11.6 Immature Gran % (Auto) 0.7 H Neut % (Auto) 75.3 H Lymph % (Auto) 8.5 L [place] % (Auto) 14.9 H Eos % (Auto) 0.3 Baso % (Auto) 0.3 Lymph # (Auto) 0.5 L [place] # (Auto) 0.9 Eos # (Auto) 0.0 Baso # (Auto) 0.0 Abs Immat Gran (auto) 0.04 H Absolute Neuts (auto) 4.5 Absolute Nucleated RBC 0.030 H Nucleated RBC % (auto) 0.5 H Smear Tech's Comments VERIFIED Anion Gap 15 Estim Creat Clear Calc 97.6 Estimated GFR > 60 Random Glucose 150 H Lactic Acid 1.1 Calcium 9.3 Magnesium 1.5 L Total Bilirubin 1.7 H Direct Bilirubin 0.7 H GGT 35 AST 36 ALT 33 Alkaline Phosphatase 44 Troponin I High Sens 11.1 6.7 Total Protein 6.8 Albumin 3.7 Urine Color Dark Yellow Urine Appearance Clear Urine pH 6.0 Ur Specific [place] 1.025 Urine Protein 100 (2+) H Urine Glucose (UA) Negative Urine Ketones Trace Urine Blood Negative Urine Nitrite Negative Ur Leukocyte Esterase Trace H Urine RBC 0-2 Urine WBC 0-5 Ur Squamous Epith Cells 3-5 Urine Bacteria None Seen Hyaline Casts 3-5 Influenza Type A (PCR) NEGATIVE Influenza Type B (PCR) NEGATIVE RSV RNA Qual (PCR) NEGATIVE SARS-CoV-2 RNA (RT-PCR) NEGATIVE 02/24/24 06:51 MCV 89.4 MCH 32.3 MCHC 36.1 H RDW 13.1 Plt Count 115 L MPV 11.1 Immature Gran % (Auto) 0.5 H Neut % (Auto) 53.1 Lymph % (Auto) 24.5 [place] % (Auto) 19.1 H Eos % (Auto) 2.1 Baso % (Auto) 0.7 Lymph # (Auto) 1.0 L [place] # (Auto) 0.8 Eos # (Auto) 0.1 Baso # (Auto) 0.0 Abs Immat Gran (auto) 0.02 Absolute Neuts (auto) 2.3 Absolute Nucleated RBC 0.000 Nucleated RBC % (auto) 0.0 Smear Tech's Comments Anion Gap 13 Estim Creat Clear Calc 107.1 Estimated GFR > 60 Random Glucose 112 Lactic Acid Calcium 9.1 Magnesium 2.1 Total Bilirubin 1.2 H Direct Bilirubin GGT AST 35 ALT 32 Alkaline Phosphatase 40 Troponin I High Sens Total Protein 6.3 L Albumin 3.4 L Urine Color Urine Appearance Urine pH Ur Specific [place] Urine Protein Urine Glucose (UA) Urine Ketones Urine Blood Urine Nitrite Ur Leukocyte Esterase Urine RBC Urine WBC Ur Squamous Epith Cells Urine Bacteria Hyaline Casts Influenza Type A (PCR) Influenza Type B (PCR) RSV RNA Qual (PCR) SARS-CoV-2 RNA (RT-PCR) Assessment and Plan (1) Acute UTI: Status: Acute Plan This is a 68 y/o man admitted with: Fever, fatigue, urinary symptoms and generalized malaise presumed to be secondary to UTI. CT of abdomen and pelvis showing cystitis. RSV, flu, covid negative. Chest x- ray negative Urinalysis fairly bland but this is likely due to recent use of nitrofurantoin/partially treated UTI Follow urine culture Blood cultures pending Hypomagnesemia and hypokalemia. Likely secondary to HCTZ use. Hold HCTZ for now. Resolved with replacement Sinus bradycardia. Likely secondary to carvedilol, already received am dose monitor closely if persistent bradycardia can consider decreasing dose of carvedilol Patient currently asymptomatic Hyperlipidemia. Continue statin. Essential hypertension. Continue carvedilol (if HR allows). Obstructive sleep apnea. CPAP at nighttime Cholelithiasis. Incidental finding on CT scan. No signs or symptoms of cholecystitis. Isolated direct hyperbilirubinemia. Normal transaminases and alk-phos. bili down to 1.2 no abdominal pain Code status: Full Prophylaxis: SCDs. Early ambulation. Requires ongoing inpatient stay for presumed UTI failing outpatient therapy management IV antibiotic therapy. Patient will also need further evaluation with blood cultures to assess for bacteremia. Quality Stroke Does the patient have a stroke diagnosis?: No VTE Prior VTE?: No VTE Risk Level:: Medical - moderate - high VTE Device Contraindication: N/A - Device Ordered VTE Drug Contraindication: Treatment Not Indicated
--- NOTE | 2024-02-24 13:32 | MHC.CM.PN ---
IMM delivered. Patient is from home w/ parter [place]. Reports he is functionally independent. Has a walker that he has temporarily used after previous surgeries. CPAP, supplies through [facility]. Reports Savanna Mao is his HCP, copy requested. PCP Nikki Ying MD DP: Goal is home self care. Partner to transport. CM will continue to follow.
[2024-02-24] MEDS: 0.9 % Sodium Chloride Flush 3 ML SYRINGE IVFLUSH ×2 (15:58→23:41)
[2024-02-24] MEDS: traMADoL HCL 50 MG TABLET PO (17:19)
[2024-02-24] MEDS: Atorvastatin Calcium 40 MG TABLET PO (21:05)
[2024-02-24] MEDS: traZODone HCL 100 MG TABLET PO (21:05)
[2024-02-24] MEDS: cefTRIAXone sodium 1 GM in 0.9 % Sodium Chloride 50 ML IV (21:07)
[2024-02-24] MEDS: carvediloL 3.125 MG TABLET PO (21:11)
[2024-02-24] MEDS: Acetaminophen 325 MG TABLET 975 MG PO (21:42)
--- NOTE | 2024-02-24 21:55 | PC.NURSE ---
Addendum entered by Charito Yeung RN 02/24/24 23:24: Handoff report given to oncoming RN 23:10. Please see shift assessment, associated tasks, and MAR for full details. Original Note: Assumed care of patient at 19:15 this evening. Per handoff report pt had been bradycardic yesterday evening. Chart reviewed confirmed overnight HR ranged 40's to 70's. Cover[address] Dr. Daniele Mcdaniel paged and discussed evening vitals, scheduled coreg 12.5mg due now, and that pt is on s3/ not on tele though denies acute issues. MD reduced dosage to 3.125mg. This was discussed with the patient and he was agreeable to taking. Medications administered. Vitals per unit standard/order.
--- NOTE | 2024-02-25 01:22 | PC.NURSE ---
Patient is refusing bed alarm despite being educated on safety/risks
--- NOTE | 2024-02-25 02:51 | PC.RT ---
Pt refused CPAP
[2024-02-25 04:00] VITALS: BP 120/71; PULSE 50; RESP 16; TEMP 36.1; O2SAT 96
[2024-02-25] MEDS: Omeprazole 20 MG CAPSULE.DR PO (06:00)
[2024-02-25] MEDS: traMADoL HCL 50 MG TABLET PO (06:06)
[2024-02-25 07:01] VITALS: BP 121/72; PULSE 66; RESP 14; TEMP 36.1; O2SAT 96
[2024-02-25] MEDS: carvediloL 3.125 MG TABLET PO (07:29)
[2024-02-25] MEDS: 0.9 % Sodium Chloride Flush 3 ML SYRINGE IVFLUSH (07:30)
--- NOTE | 2024-02-25 11:43 | PM.DS ---
DS: Providers Provider Date of Service: 02/25/24 Date of admission: 02/24/24 00:52 Primary care physician: Nikki Ying MD DS: Diagnosis Discharge Diagnosis (1) Acute UTI: Status: Acute DS: Summary Hospital Course Hospital Course: History and physical as per admitting provider. Zach Ortiz is a very pleasant 68 years old man with past medical history significant for hypertension on (hydrochlorothiazide and carvedilol), DARIAN on CPAP and hyperlipidemia presents to the emergency department complaining of fatigue and generalized malaise. He had fever spike last night of 103. He was diagnosed with UTI last and has been taking a course of nitrofurantoin as he has been having acute urinary symptoms including urinary frequency, pain with urination noted his urine was dark. No urinalysis done. He reported discomfort to the lower abdomen and I sore throat, ear pain, chest pain, shortness on breath or cough. He also denied diarrhea or constipation. Denies tobacco smoking, alcohol abuse or illicit drug use. Abdominal surgery history is remarkable for appendectomy. In the ED, he was found to have stable vital signs. There is no fever or tachycardia reported. His heart rate has been fluctuating between 50 and 66 bpm. Blood workup showed no leukocytosis. There is monocytosis and lymphopenia. Potassium is 2.9 and magnesium is 1.7. Total bilirubin is 1.7 (direct 0.7). Transaminases, alk-phos and albumin are normal. Troponin is negative x2. Urinalysis showed protein 2+, trace ketones, negative blood, negative nitrate, trace leukocytes steroids, RBC 0-2, WBCs 0-2, and 3-5 epithelial cells. CXR is negative for infection. Abdominal pelvis CT scan with IV contrast showed findings consistent with cystitis, no obstructive uropathy and cholelithiasis without CT evidence of cholecystitis. ED tx: NS 2 L bolus, Zofran 4 mg IV, ceftriaxone 1 g, ketorolac 15 mg IV, acetaminophen 975 mg p.o. and KCl. 68-year-old man treated for UTI with fever, fatigue and urinary symptoms. Had been treated outpatient for UTI with nitrofurantoin but patient remained symptomatic. He was started on IV Rocephin, blood cultures remained negative, urine culture was also negative. Patient will continue oral Ceftin to complete total therapy. Plan is to discharge patient home, he is in agreement. Hypomagnesemia hypokalemia. Likely secondary to hydrochlorothiazide, held during hospitalization. Resolved with replacement Sinus bradycardia. Likely secondary to carvedilol, decreased to 3.125 mg b.i.d. Hyperlipidemia. Continue statin Obstructive sleep apnea. CPAP at bedtime Time Attestation Discharge Coordination Time (in mins): 40 Quality: Safe Use of Opioids Does Pt have an Active Cancer Diagnosis on the Problem List?: No Quality: Stroke Does the patient have a stroke diagnosis?: No Physical Exam Vital Signs: Vital Signs: Last Vital Signs Temp 97.0 F 02/25/24 07:01 Pulse 66 02/25/24 07:01 Resp 14 02/25/24 07:01 BP 121/72 02/25/24 07:01 Pulse Ox 96 02/25/24 07:01 O2 Del Method Room Air 02/25/24 07:01 BMI result Body Mass Index 31.3 Appearing in no acute distress head is normocephalic atraumatic eyes pupils are PERRLA sclera is anicteric mouth throat mucous membranes are intact and moist neck is supple no lymphadenopathy, no JVD noted lung sounds are clear to auscultation heart regular rate rhythm, clear S1, S2 positive bowel sounds, abdomen is soft, nontender neuro patient is alert x3, no focal deficits DS: Data Data Completed and Pending Labs on day of discharge: Preliminary micro results at discharge 02/23/24 20:04 Blood Culture - Preliminary Blood - Venous No growth after 24 hours. 02/23/24 19:49 Blood Culture - Preliminary Blood - Venous No growth after 24 hours. Discharge Plan Discharge Anticipated Discharge Date/Time: 02/25/24 11:38 Patient Disposition: Home, Self-Care Discharge Diagnosis: UTI Hypomagnesemia Hypokalemia Sinus bradycardia Referrals: Nikki Ying MD [Primary Care Provider] - 1 Week Discharge Medications: New carvedilol 3.125 mg Tablet 3.125 mg PO BID Qty: 60 0RF Protocol: Hold for SBP/HR < HOLD for SBP < : 90 HOLD for HR < : 60 cefuroxime axetil 500 mg tablet 500 mg PO BID Qty: 8 0RF Continued rosuvastatin 20 mg tablet 10 mg PO DAILY tramadol 50 mg tablet 50 mg PO BID PRN (Reason: Pain) trazodone 100 mg tablet 100 mg PO BEDTIME hydrochlorothiazide 25 mg tablet 25 mg PO DAILY nitrofurantoin monohyd/m-cryst 100 mg capsule 1 cap PO BID Rx Instructions: END DATE: 02/27/24 omeprazole magnesium 20 mg Tablet,Delayed Release (Dr/Ec) 20 mg PO DAILY@0630 Discontinued carvedilol 12.5 mg tablet 12.5 mg PO BID Discharge Orders: Discharge Order (Routine); Ordered 02/25/24 Ordered By: Mabel Jorge Diet: Advance to usual diet Activity on Discharge: As tolerated Stand Alone Forms: Patient Portal Discharge page Print Language: [place] Care Plan Goals: Complete course of antibiotics Health Concerns: UTI Hypomagnesemia Hypokalemia Sinus bradycardia Plan of Treatment: Follow-up with primary care provider as needed Take all medications as prescribed Assessment: See discharge summary Discharge Date/Time: 02/25/24 12:48
--- NOTE | 2024-02-25 12:01 | MHC.CM.PN ---
DP: P HAS BEEN MEDICALLY CLEARED FOR DC HOME, NO SERVICES. PT HAS OWN RIDE HOME
== END 2024-02-25 12:48 | disposition home or self-care (01) | DRG 690 ==
LOC: HO.ED 02-24 00:27 → HO.EDOVER 02-24 01:07 → HO.S3 02-24 02:08
PROVIDERS: Physician Assistant Medical; Admitting Provider Internal Medicine; Emergency Provider Emergency Medicine Emergency Medical Services; PCP Internal Medicine; Visit Provider Nurse Practitioner Acute Care
DX: N39.0 Urinary tract infection, site not specified (principal); E87.6 Hypokalemia; G47.33 Obstructive sleep apnea (adult) (pediatric); K80.20 Calculus of gallbladder without cholecystitis without obstruction; R00.1 Bradycardia, unspecified; I10 Essential (primary) hypertension; T44.7X5A Adverse effect of beta-adrenoreceptor antagonists, initial encounter; E83.42 Hypomagnesemia; E78.5 Hyperlipidemia, unspecified; Z87.440 Personal history of urinary (tract) infections; Z20.822 Contact with and (suspected) exposure to COVID-19; Z79.899 Other long term (current) drug therapy
CPT/HCPCS: 0241U; 36415; 71045; 74176; 80053; 80076; 81001; 82977; 83605; 83735; 84484; 85025; 87040; 87086; 93005; 99285; J0696; J1885; J2405; J3475; J3480; J7120

== ENCOUNTER → 2024-02-23 22:58 | Outpatient (BNV) | payer MEDICARE, SELFPAY | PROVIDERS: Admitting Provider Internal Medicine; Emergency Provider Emergency Medicine Emergency Medical Services; PCP Internal Medicine; Visit Provider Internal Medicine | DX: R00.1 Bradycardia, unspecified (principal); R61 Generalized hyperhidrosis | CPT/HCPCS: 93010 ==

== ENCOUNTER → 2024-02-24 00:52 | Outpatient (BNV) | payer MEDICARE, SELFPAY | PROVIDERS: Admitting Provider Internal Medicine; Emergency Provider Emergency Medicine Emergency Medical Services; PCP Internal Medicine; Visit Provider Internal Medicine | DX: N39.0 Urinary tract infection, site not specified (principal) | CPT/HCPCS: 99223; 99239; 99499 ==

== ENCOUNTER 2025-06-11 11:16 | Outpatient (AMB) | payer OTHER, SELFPAY ==
--- OUTSIDE RECORDS SUMMARY | 2025-06-08 07:30 | XMS_ITS ---
Author Organization [address] Address [address] [place] [address] Care Team Providers Care Strainer Tender Name Role Phone GI PEREZ Unavailable [phone] JACKY YING Unavailable [phone] REASON FOR VISIT Patient is here for micc shot. Patient signed consent and left the office in stable condition Medications Medication SIG (Take, Route, Frequency, Duration) Notes Start Date End Date Status traZODone HCl 100 MG 1 tablet at bedtime Orally Once a day; Duration: 90 days Active traMADol HCl 50 MG 1 tablet Orally twice a day; Duration: 30 days As needed for pain 05/14/2025 Active traMADol HCl 50 MG 1 tablet Orally twic e a day as needed; Duration: 30 days 04/11/2024 Not-Taking Rosuvastatin Calcium 20 MG 1 tablet Oral ly Once a day; Duration: 90 days Active hydroCHLOROthiazide 25 MG TAKE 1 TABLET BY MOUTH EVERY DAY IN THE MORNING FOR 90 DAYS; Duration: 90 Active Viagra 100 MG 1 tablet as needed for sex Orally Once a day; Duration: 30 day(s) 09/12/2021 Active Omeprazole 20 MG 1 capsule 30 minutes before morning meal Orally Once a day Active Carvedilol 12.5 MG 1 tablet with food Orally Twice a day Active Gabapentin 100 MG 1 capsule Orally 3 times a day; Duration: 30 days Active Encounters Encounter Location Date Provider Diagnosis [address] [place] [address] 06/08/2025 JACKY YING Plan Of Treatment Next Appt Details Provider Name:GI Jensen, 06/25/2025 08:45:00 AM, [address] [facility], [address], [place], [address], Provider Name:JACKY YING, 06/25/2025 11:30:00 AM, [address], [place], [address], Medications Administered Medication Instructions Date of Administration Dosage Notes MICC B12 INJECTION 06/08/2025 1 mL Progress Notes * CLAIRE KESSLER RDOB:[birth year] (70 yo M)Acc No.[id number]:06/08/2025 Progress Note Patient: CLAIRE MURRAY Provider: Mayo Ying MD :1955 A ge:70 Y S ex:Male Date:06/08/2025 Address:[facility] [address], [place], [place]-[id number] Subjective: * Chief Complaints: * 1 . Patient is here for micc shot. Patient signed consent and left the office in stable condition. * Medical History: * Medications: T aking Gabapentin 100 MG Capsule 1 capsule Orally 3 times a day , Taking Carvedilol 12.5 MG Tablet 1 tablet with food Orally Twice a day , Taking Omeprazole 20 MG Capsule Delayed Release 1 capsule 30 minutes before morning meal Orally Once a day , Taking Viagra 100 MG Tablet 1 tablet as needed for sex Orally Once a day , Taking hydroCHLOROthiazide 25 MG Tablet TAKE 1 TABLET BY MOUTH EVERY DAY IN THE MORNING FOR 90 DAYS , Taking Rosuvastatin Calcium 20 MG Tablet 1 tablet Orally Once a day , Taking traMADol HCl 50 MG Tablet 1 tablet Orally twice a day As needed for pain, Taking traZODone HCl 100 MG Tablet 1 tablet at bedtime Orally Once a day , Not- Taking traMADol HCl 50 MG Tablet 1 tablet Orally twice a day as needed Objective: * Vitals: Assessment: Plan: * Treatment: * Therapeutic Injections: MICC B12 INJECTION : 1 mL (Route: Intramuscular) given by Ramon Holloway on left deltoid Care Plan: * Problems: * Images: Billing Information: * Visit Code: * Procedure Codes: Care Plan Details* * Electronic signature of AMADOR YING MD on 06/11/2025 at 01:00 PM EDT Sign off status: Pending * Provider: Mayo Ying MD Date: 0 06/08/2025 Generated for Mayra sandoval/Óscar/Frank on: 0 06/11/2025 01:00 PM EDT
--- NOTE | 2025-06-11 11:18 | MHC.OFFVIS ---
Vital Signs 06/11/25 11:21 Height 6 ft 5 in Weight 264 lb 8 oz BMI 31.4 BP 118/70 Blood Pressure Location Rt brachial Position Sitting Pulse 50 Pulse Source Pulse Oximeter Temp 97 F Pulse Oximetry (%) 97 Intake Visit Reasons: ENP - pain, numbness, tingling in feet, weakness Intake Note: Pain, numbness, tingling in feet and numbness Coffee Maker Required: No Accompanied by: Self / Same As Patient Allergies No Known Allergies Allergy (Verified 06/11/25 11:19) Medication List - Last Reconciled 06/11/25 by Concepción Wright MD carvedilol 3.125 mg See Protocol PO BID duloxetine 30 mg PO BID hydrochlorothiazide 25 mg PO DAILY omeprazole magnesium 20 mg PO DAILY@0630 rosuvastatin 10 mg PO DAILY tramadol 50 mg PO BID PRN trazodone 100 mg PO BEDTIME HPI Comments Details: 70y/o male comes for dorina feet pain . He feels like he is walking solid blister. It started 2 years ago.He also has numbness in his feet and Right thumb , index finger, middle finger ,also has trouble with hand movements in his Right hand - has trouble buttoning , using zipper etc. He has a sore back but is very active. He had a back surgery fro lumbar stenosis in 2016 , had knee and ankle replacement He has mild urgency . The discomfort in his feet are worse at rest and in the evening.He was given gabapentin but he felt like he had balance issues. [facility]LY [facility], [facility] Medical History Numbness and tingling in right hand Numbness and tingling of both feet Cholelithiasis Hyperlipidemia Essential hypertension Obstructive sleep apnea on CPAP Surgical History Previous back surgery H/O knee surgery History of ankle surgery S/P appendectomy Social History Household Members: Significant Other Housing: House Do you presently have visiting nurse or other home services: No Comment: pt refuses BR assistance and alarms Patient Tobacco Use Status: Never used Tobacco Physical Exam Vital Signs: Last Vital Signs Temp 97 F 06/11/25 11:21 Pulse 50 06/11/25 11:21 BP 118/70 06/11/25 11:21 Pulse Ox 97 06/11/25 11:21 BMI result Body Mass Index 31.4 Const General: cooperative, healthy appearing, comfortable, no acute distress and well developed Nutritional Appearance: average body habitus Orientation/consciousness: patient oriented x3 Eyes Pupils: Equal, round and reactive pupils present Neuro Other: Decreased light touch and pin prick LE - strating upper 1/ General: patient oriented x3, gait normal, tone normal, moves all extremities and no focal motor deficits Cranial nerves: Yes Facial sensation intact/muscles of mastication intact, Yes Equal, round and reactive pupils present, Yes Bilaterally intact EOM present, Yes Nystagmus not present, Yes Normal facial strength present, Yes Midline tongue present and Yes Symmetric palate elevation present Cognition (Neuro): normal cognition Gait exam (Neuro): Normal gait present Deep tendon reflexes (DTR's): Right triceps reflex intensity grade: 1+, Left triceps reflex intensity grade: 1+, Rt Biceps (C5, C6): 1+, Left biceps reflex intensity grade: 1+, Right brachioradialis reflex intensity grade: 1+, Left brachioradialis reflex intensity grade: 1+, Right patellar reflex intensity grade: 0 and Left patellar reflex intensity grade: 0 Assessment & Plan Assessment & Plan (1) Numbness and tingling of both feet: Code(s): R20.0 - Anesthesia of skin; R20.2 - Paresthesia of skin Category: Medical (2) Numbness and tingling in right hand: Code(s): R20.0 - Anesthesia of skin; R20.2 - Paresthesia of skin Category: Medical Plan EMG/NCS to evaluate his neuropathy Duloxetine 30mg bid Labs from PCP Orders: Orders NE electromyogram (EMG) Today R20.0 - Anesthesia of skin, R20.2 - Paresthesia of skin NE nerve conduction velocity Today R20.0 - Anesthesia of skin, R20.2 - Paresthesia of skin Medications: New duloxetine 30 mg PO BID 60 caps 6RF Discontinued cefuroxime axetil Discontinued Reason: Patient no longer taking 500 mg PO BID 8 tabs 0RF N39.0 - Urinary tract infection, site not specified Coding Level of Care Code New Pt Level 4 (17480) Diagnoses Numbness and tingling of both feet R20.0; R20.2 Numbness and tingling in right hand R20.0; R20.2
[2025-06-11 11:21] VITALS: BP 118/70; PULSE 50; TEMP 36.1; O2SAT 97; BMI 31.4
--- OUTSIDE RECORDS SUMMARY | 2025-06-11 13:00 | XMS_ITS | Clinical Summary ---
Author Organization [facility] Address [address] [place] [address] Care Team Providers Care Naturopath Name Role Phone Nikki Ying MD Primary Care Provider [phone] Allergies No known active allergies Medications meloxicam (MOBIC) 15 MG tabletIndicatio ns:Trochanteric bursitis, left hip Take 1 tablet (15 mg total) by mouth daily. 14 tablet 4 Active SUPPLY DME MISCIndications :Bilateral foot pain Rx: Shoe wear evaluation, Custom Cushion Inserts RAYNA Dx: RAYNA FT pain, Neuropathy, s/p fusion 1 each 4 Active pregabalin (LYRICA) 75 MG capsuleIndicati ons:Osteoarthri tis of ankle and foot, right Take 1 capsule (75 mg total) by mouth 2 (two) times a day. 42 capsule 4 Active Additional Information Patient not taking.Reported on 02/27/2025 carvedilol (COREG) 12.5 MG tablet 1 tablet with food Orally Twice a day Active rosuvastatin (CRESTOR) 20 MG tablet Take 10 mg by mouth. Active hydroCHLOROthia zide (HYDRODIURIL) 25 MG tablet TAKE 1 TABLET BY MOUTH EVERY DAY IN THE MORNING FOR 90 DAYS for 90 Active OMEprazole (PriLOSEC) 20 MG capsule 1 capsule 30 minutes before morning meal Orally Once a day Active traZODone (DESYREL) 50 MG tablet TAKE 1-2 TABLETS AT BEDTIME NEEDED ORALLY ONCE A DAY Active Active Problems No known active problems Social History Tobacco Use Types Packs/Day Years Used Date Smoking Tobacco: Never Assessed Sex and Gender Information Value Date Recorded Sex Assigned at Not on file Legal Sex Male 10:12 AM EDT Gender Identity Male 02/21/2024 10:22 AM EDT Sexual Orientation Not on file Last Filed Vital Signs Vital Sign Reading Time Taken Comments Blood Pressure 123/78 02/27/2025 1:22 PM EDT Pulse 57 02/27/2025 1:22 PM EDT Temperature 36.8 C (98.3 F) 02/27/2025 1:22 PM EDT Respiratory Rate - - Oxygen Saturation 94% 02/27/2025 1:22 PM EDT Inhaled Oxygen Concentration - - Weight 113 kg (250 lb) 02/27/2025 1:22 PM EDT Height 195.6 cm (6' 5 ) 02/27/2025 1:22 PM EDT Body Mass Index 29.65 02/27/2025 1:22 PM EDT Plan of Treatment Health Maintenance Due Date Last Done Comments Hepatitis C Virus Screening 1955 DTaP/Tdap/Td Vaccines (1 - Tdap) 1972 Colonoscopy 1998 Pneumococcal Vaccines 50+ (1 of 1 - PCV) 2003 Zoster (Shingles) Vaccine (1 of 2) 2003 COVID-19 Vaccine ( - 2023-2 5 season) 2024 Influenza Vaccine 05/22/2025 RSV Vaccine 60 years and old er and Patients (1 - 1-dose 75+ series) 2028 Hepatitis B Vaccines Aged Out No long er eligible based on patient's age to complete this topic Insurance [employer] MGD MEDICARE Care Teams Naturopath Relationship Specialty Start Date End Date Nikki Ying MD [address] [place] [address] PCP - General Internal Medicine 02/27/24
--- OUTSIDE RECORDS SUMMARY | 2025-06-11 13:00 | XMS_ITS | Encounter Summary ---
Author Organization [facility] Address [address] [place] [id number] Phone Care Team Providers Care Home And School Visitor Name Role Phone Judi Reza MD Primary Care Provider Unavailabl e Encounter Details Date Type Department Care Team (Late st Contact Info) Description 05/20/2018 Procedure [facility] [address] [place] [address] Social History Tobacco Use Types Packs/Day Years Used Date Smoking Tobacco: Former Cigarettes 1 40 Smokeless Tobacco: Former Alcohol Use Standard Drinks/Week Comments Not Asked 0 (1 standard drink = 0.6 oz pure alcohol) former heavy alcohol use (8 drinks/night for 40 years, now in remission) Sex and Gender Information Value Date Recorded Sex Assigned at Not on file Legal Sex Male 2:11 PM EDT Gender Identity Not on file Sexual Orientation Not on file documented as of this encounter Plan of Treatment Not on file documented as of this encounter Visit Diagnoses Not on filedocumented in this encounter Care Teams Home And School Visitor Relationship Specialty Start Date End Date Judi Reza MD PCP - General Internal Medicine 07/06/15 documented as of this encounter Additional Source Comments The information contained in this document represents components of the legal health record. It is not the complete legal health record.[facility]
--- OUTSIDE RECORDS SUMMARY | 2025-06-11 13:00 | XMS_ITS ---
Author Name [facility] Organization Unknown History of Medication Use Medication Directions Dispensed Refills Start Date End Date Stat us carvedilol (COREG) 12.5 MG tablet 1 tablet with food Orally Twice a day active hydroCHLOROthiazide (HYDRODIURIL) 25 MG tablet TAKE 1 TABLET BY MOUTH EVERY DAY IN THE MORNING FOR 90 DAYS for 90 active OMEprazole (PriLOSEC) 20 MG capsule 1 capsule 30 minutes before morning meal Orally Once a day active rosuvastatin (CRESTOR) 20 MG tablet Take 10 mg by mouth. active traZODone (DESYREL) 50 MG tablet TAKE 1-2 TABLETS AT BEDTIME NEEDED ORALLY ONCE A DAY active Problems Problem Status Onset Date Problem Type Date of Resoluti on Source Skin tear of right forearm without complication, initial encounter active EncounterDiagnosisAct H HCCT Encounters Encounter Type Encounter Reason Primary Diagnosis Location Date Ambulatory Head Injury Head Injury [facility] 02/27/2025 Ambulatory Pain in right foot Pain in right foot [facility] [employer] [facility] 10/14/2024 Ambulatory [facility] 09/16/2024 Ambulatory Pain in right foot Pain in right foot [facility] [employer] [facility] 09/16/2024 Ambulatory [facility] 02/27/2024 Ambulatory Pain in left hip Pain in left hip [facility] [employer] [facility] 02/27/2024 Care Team Organization Name Specialty Phone Email Start Date End [place] [facility] [place] [employer] [facility] Nikki Ying [facility] 02/27/2024 03/28/2025 [facility] Nikki Ying Primary Care 02/27/2024 [place] [employer] [facility] 02/20/2024 [facility] Nikki Ying Primary Care 10/30/2022
== END 2025-06-11 11:54 | disposition home or self-care (01) ==
LOC: HO.HSMS 11:17
PROVIDERS: PCP Internal Medicine; Visit Provider Psychiatry & Neurology Neurology
DX: R20.0 Anesthesia of skin (principal); R20.2 Paresthesia of skin
CPT/HCPCS: 99204

== ENCOUNTER 2025-07-21 15:33 | Emergency (ER) | payer OTHER, SELFPAY ==
--- OUTSIDE RECORDS SUMMARY | 2018-07-02 14:01 | XMS_ITS | Encounter Summary ---
Author Organization [facility] Address [address] [place] [phone] Phone Care Team Providers Care Superintendent Maintenance Name Role Phone Judi Reza MD Primary Care Provider Unavailabl e Encounter Details Date Type Department Care Team (Late st Contact Info) Description 07/02/2018 2:01 PM EDT Hospital Encounter [facility] and [facility] [address] [place] [address] Tripp Lopes MD [address] [id number] [email or web address] Social History Tobacco Use Types Packs/Day Years Used Date Smoking Tobacco: Former Cigarettes 1 40 0 06/12/1972 - 06/12/2012 Smokeless Tobacco: Former Alcohol Use Standard Drinks/Week Comments No 0 (1 standard drink = 0.6 oz pure alcohol) former heavy alcohol use (8 drinks/night for 40 years, now in remission) Education Answer Date Recorded Are you interested in more education? Not on papi e 02/16/2023 Are you concerned about learning? Not on file 02/16/2023 No 02/16/2023 No 02/16/2023 Digital Access Answer Date Recorded No 03/18/2023 No 03/18/2023 No 03/18/2023 Reliable internet access at home? Not on file 03/18/2023 Device with a working camera? Not on file Sex and Gender Information Value Date Recorded Sex Assigned at Not on file Legal Sex Male 2:11 PM EDT Gender Identity Not on file Sexual Orientation Not on file documented as of this encounter Plan of Treatment Not on file documented as of this encounter Procedures Procedure Name Priority Date/Time Associated Diagnosis Comments FL FLUOROSCOPY Routine 07/02/2018 6:50 PM EDT documented in this encounter Results * FL Fluoroscopy Less Than 1 Hour (07/02/2018 6:50 PM EDT) Narrative JAQUELINE - 07/02/2018 6:50 PM EDT Fluoroscopy was provided during this procedure. us Tripp Lopes MD IMG FL MISC Final Result [id number] documented in this encounter Visit Diagnoses Not on filedocumented in this encounter Care Teams Superintendent Maintenance Relationship Specialty Start Date End Date Judi Reza MD PCP - General Internal Medicine 07/06/15 documented as of this encounter Additional Source Comments The information contained in this document represents components of the legal health record. It is not the complete legal health record.[facility]
--- OUTSIDE RECORDS SUMMARY | 2025-06-25 07:30 | XMS_ITS ---
Author Organization [address] [address] Address [address] [place] [address] Care Team Providers Care Assistant Head Cashier Name Role Phone GI PEREZ Unavailable [phone] JACKY YING Unavailable [phone] REASON FOR VISIT Patient is here for micc shot. Patient signed consent and left the office in stable condition Medications Medication SIG (Take, Route, Frequency, Duration) Notes Start Date End Date Status Gabapentin 100 MG 1 capsule Orally 3 t imes a day; Duration: 30 days Active traMADol HCl 50 MG 1 tablet Orally twice a day; Duration: 30 days As needed for pain Active traZODone HCl 100 MG 1 tablet at bedtime Orally Once a day; Duration: 90 days Active DULoxetine HCl 30 MG TAKE 1 CAPSULE ORAL LY 2 TIMES A DAY Oral; Duration: 90 Days Active Rosuvastatin Calcium 20 MG 1 tablet Oral ly Once a day; Duration: 90 days Active hydroCHLOROthiazide 25 MG TAKE 1 TABLET BY MOUTH EVERY DAY IN THE MORNING FOR 90 DAYS; Duration: 90 Active Viagra 100 MG 1 tablet as needed f or sex Orally Once a day; Duration: 30 day(s) 09/12/2021 Active Carvedilol 12.5 MG 1 tablet with food O rally Twice a day Active Omeprazole 20 MG 1 capsule 30 minutes before morning meal Orally Once a day Active Encounters Encounter Location Date Provider Diagnosis [address] [place] [address] 06/25/2025 JACKY YING Plan Of Treatment Next Appt Details Provider Name:GI Jensen, 10/19/2025 09:00:00 AM, [address] [facility] [address], [address], [place], [address], Medications Administered Medication Instructions Date of Administration Dosage Notes MICC B12 INJECTION 06/25/2025 1 mL Progress Notes * CLAIRE KESSLER RDOB:[birth year] (70 yo M)Acc No.[id number]:06/25/2025 Progress Note Patient: CLAIRE MURRAY Provider: Mayo Ying MD :1955 A ge:70 Y S ex:Male Date:06/25/2025 Address:[address] [place] [address], [facility], [id number] Subjective: * Chief Complaints: * 1 . Patient is here for micc shot. Patient signed consent and left the office in stable condition. * Medical History: * Medications: T aking Carvedilol 12.5 MG Tablet 1 tablet with [...] tablet Orally Once a day , Taking traZODone HCl 100 MG Tablet 1 tablet at bedtime Orally Once a day , Taking DULoxetine HCl 30 MG Capsule Delayed Release Particles TAKE 1 CAPSULE ORALLY 2 TIMES A DAY Oral , Taking Gabapentin 100 MG Capsule 1 capsule Orally 3 times a day , Taking traMADol HCl 50 MG Tablet 1 tablet Orally twice a day As needed for pain Objective: * Vitals: Assessment: Plan: * Treatment: * Therapeutic Injections: MICC B12 INJECTION : 1 mL (Route: Intramuscular) given by Ramon Holloway on left arm intramuscular Care Plan: * Problems: * Images: Billing Information: * Visit Code: * Procedure Codes: Care Plan Details* * Electronic signature of AMADOR YING MD on 07/21/2025 at 05:21 PM EDT Sign off status: Pending * Provider: Mayo Ying MD Date: 06/25/2025 Generated for Mayra sandoval/Óscar/Frank on: 07/21/2025 05:21 PM EDT
--- OUTSIDE RECORDS SUMMARY | 2025-07-09 04:45 | XMS_ITS ---
Author Organization [facility] [address] Address [address] [place] [address] Care Team Providers Care Bioinformatics Computer Scientist Name Role Phone GI PEREZ Unavailable [phone] JACKY YING Unavailable [phone] REASON FOR VISIT pt presents for nurse visit. micc 1ml administered. pt tolerated well, consent form signed Medications Medication SIG (Take, Route, Frequency, Duration) Notes Start Date End Date Status Carvedilol 12.5 MG 1 tablet with food O rally Twice a day Active Rosuvastatin Calcium 20 MG 1 tablet [...] morning meal Orally Once a day Active Gabapentin 100 MG 1 capsule Orally 3 t imes a day; Duration: 30 days Active DULoxetine HCl 30 MG TAKE 1 CAPSULE ORAL LY 2 TIMES A DAY Oral; Duration: 90 Days Active traZODone HCl 100 MG 1 tablet at bedtime Orally Once a day; Duration: 90 days Active traMADol HCl 50 MG 1 tablet Orally twice a day; Duration: 30 days As needed for pain Active Encounters Encounter [facility] Date [facility] [address] [place] [address] 07/09/2025 JACKY YING Plan Of Treatment Next Appt Details Provider Name:GI Jensen, 10/19/2025 09:00:00 AM, [address], [address], [place], [address], Medications Administered Medication Instructions Date of Administration Dosage Notes MICC B12 INJECTION 07/09/2025 1 mL Progress Notes * CLAIRE KESSLER RDOB:[birth year] (70 yo M)Acc No.[id number]:07/09/2025 Progress Note Patient: CLAIRE MURRAY Provider: Mayo Ying MD :1955 A ge:70 Y S ex:Male Date:07/09/2025 Address:[address] [place] [address], [facility], [id number] Subjective: * Chief Complaints: * 1 . Pt presents for nurse visit. micc 1ml administered. pt tolerated well, consent form signed. * Medical History: * Medications: T aking [...] : 1 mL (Route: Intramuscular) given by Mellisa Patrick on left arm intramuscular Care Plan: * Problems: * Images: Billing Information: * Visit Code: * Procedure Codes: Care Plan Details* * Electronic signature of AMADOR YING MD on 07/21/2025 at 05:21 PM EDT Sign off status: Pending * Provider: Mayo Ying MD Date: 07/09/2025 Generated for Mayra sandoval/Óscar/Frank on: 07/21/2025 05:21 PM EDT
--- NOTE | ~2025-07-21 | XR_ITS ---
EXAMINATION: XR TIBIA AND FIBULA, RIGHT CLINICAL INFORMATION: pain, cellulitis COMPARISON: None available. TECHNIQUE: AP and lateral views of the right tibia and fibula were obtained. FINDINGS: No fracture, dislocation, or suspicious bone lesion. 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 No complication evident. There are vascular calcifications in the soft tissues. There is mild subcutaneous cutaneous edema throughout. XR/XR tibia fibula RT 2V IMPRESSION: No acute bony findings in the right tibia and fibula. Electronically signed by: Harvinder Gonzales MD 07/21/2025 04:54 PM EDT
--- NOTE | ~2025-07-21 | US_ITS ---
EXAMINATION: US TRIPLEX LOWER EXTREMITY, RIGHT CLINICAL INFORMATION: Right lower extremity pain. COMPARISON: None available. TECHNIQUE: Color-flow triplex imaging with spectral analysis and compression Doppler were performed on the right lower extremity. FINDINGS: Respiratory variation, normal compression and augmented flow are noted throughout the right lower extremity. The visualized common femoral vein, superficial femoral vein, profunda femoral vein, popliteal vein and midcalf peroneal and posterior tibial venous segments show no evidence of deep venous thrombosis. There is no Pendleton's cyst. US/US venous duplex LE RT IMPRESSION: No evidence of deep venous thrombosis involving the right lower extremity. Electronically signed by: Harvinder Gonzales MD 07/21/2025 04:49 PM EDT RP
--- NOTE | ~2025-07-21 | XR_ITS ---
EXAMINATION: XR ANKLE, RIGHT CLINICAL INFORMATION: pain, swelling COMPARISON: None available. TECHNIQUE: AP, lateral, and mortise views of the right ankle. FINDINGS: No fracture, dislocation, or suspicious bone lesion. 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 Prosthetic elements appear intact and well seated. There are anchors in the fibular head. There are moderate degenerative changes within the ankle joint. The subtalar joints and calcaneus appear grossly normal. There is calcification of the plantar fascia noted. There is circumferential soft tissue swelling about the ankle. XR/XR ankle RT min 3V IMPRESSION: 1. No acute bony abnormalities. 2. Tibiotalar joint replacement without radiographic complication. 3. 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 4. Linear calcification of the plantar fascia. 5. Circumferential soft tissue swelling. Electronically signed by: Harvinder Gonzales MD 07/21/2025 04:52 PM EDT
--- OUTSIDE RECORDS SUMMARY | 2025-07-21 10:15 | XMS_ITS ---
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 Wound on leg has not gotten better Medications Medication SIG (Take, Route, Frequency, Duration) Notes Start Date End Date Status traZODone HCl 100 MG 1 tablet at bedtime Orally Once a day; Duration: 90 days Active DULoxetine HCl 30 MG TAKE 1 CAPSULE ORAL LY 2 TIMES A DAY Oral; Duration: 90 Days Active Gabapentin 100 MG 1 capsule Orally 3 t imes a day; Duration: 30 days Active traMADol HCl 50 MG 1 tablet Orally twice a day; Duration: 30 days As needed for pain Active Carvedilol 12.5 MG 1 tablet with food O rally Twice a day Active Omeprazole 20 MG 1 capsule 30 minutes before morning meal Orally Once a day Active Viagra 100 MG 1 tablet as needed f or sex Orally Once a day; Duration: 30 day(s) 09/12/2021 Active hydroCHLOROthiazide 25 MG TAKE 1 TABLET BY MOUTH EVERY DAY IN THE MORNING FOR 90 DAYS; Duration: 90 Active Rosuvastatin Calcium 20 MG 1 tablet Oral ly Once a day; Duration: 90 days Active Social History Tobacco Use: Social History Observation Description Date Details (start date - stop date) Former Smoker NA - NA Tobacco Use/Smoking Question Answer Notes Are you a former smoker How long has it been since you last smoked? 5-10 years Section Notes: Tob: Denies Etoh: Social/infrequent Drugs: Denies Vital Signs Heart Rate 87 /min 07/21/2025 Blood pressure systolic 122 mm Hg 07/21/20 25 Blood pressure diastolic 76 mm Hg 025 Weight 256.6 lbs 07/21/2025 BMI 32.07 kg/m2 07/21/2025 Height 75 in 07/21/2025 Oximetry 98 % 07/21/2025 Encounters Encounter Location Date Provider Diagnosis [facility] [address] [place] [address] 07/21/2025 ADALI IBARRA Right leg pain M79.6 04 ; Open wound T14.8XXA ; Right leg swelling M79.89 and Encounter for examination of blood pressure without abnormal findings Z01.30 Assessments Encounter Date Diagnosis (ICD Code) Assessment Notes Treatment Notes Treatment Clinical Notes Section Notes 07/21/2025 Right leg pain (ICD-10 - M79.604) Claire is a 70-year-old male who presents to the office today for a wound on his leg... #Wound: At this time considering that patient has had a history of a right knee replacement and a right ankle replacement we did have a discussion between ordering a workup outpatient versus sending patient to the emergency department. The patient would benefit from a stat DVT rule out along with a CT scan to look for any soft tissue infection involving his hardware placement... After having a discussion we decided it was best to send patient to [place] emergency department... I did call [facility] with an expect as the patient needs an entire workup including a CBC and imaging for further evaluation. Reassuring that patient did finish his entire course of doxycycline 100 mg twice daily. The course was not extended originally as patient was not having any edema, erythema, any signs of infection at that time. Patient remains to be afebrile with no concern for systemic infection. All questions have been answered to patient's satisfaction. Patient verbalized understanding of diagnosis and treatments explained. Advised to call sooner prior to next visit it any questions/concerns arise. Case discussed with Enoch SINGH who reviewed the assessment and plan. Chart, medications, labs, vital signs reviewed. Dictation was accomplished with the use of [employer] voice recognition software, which is prone to medical misidentifications and grammatical errors. This are unintentional and the practitioner does try to identify and correct these, but some could still be present. Please do not hesitate to contact practitioner for clarification. 07/21/2025 Open wound (ICD-10 - T14.8XXA) Claire is a 70-year-old male who presents to the office today for a wound on his leg... #Wound: At this time considering that patient has had a history of a right knee replacement and a right ankle replacement we did have a discussion between ordering a workup outpatient versus sending patient to the emergency department. The patient would benefit from a stat DVT rule out along with a CT scan to look for any soft tissue infection involving his hardware placement... After having a discussion we decided it was best to send patient to [place] emergency department... I did call [facility] with an expect as the patient needs an entire workup including a CBC and imaging for further evaluation. Reassuring that patient did finish his entire course of doxycycline 100 mg twice daily. The course was not extended originally as patient was not having any edema, erythema, any signs of infection at that time. Patient remains to be afebrile with no concern for systemic infection. All questions have been answered to patient's satisfaction. Patient verbalized understanding of diagnosis and treatments explained. Advised to call sooner prior to next visit it any questions/concerns arise. Case discussed with Enoch SINGH who reviewed the assessment and plan. Chart, medications, labs, vital signs reviewed. Dictation was accomplished with the use of [employer] voice recognition software, which is prone to medical misidentifications and grammatical errors. This are unintentional and the practitioner does try to identify and correct these, but some could still be present. Please do not hesitate to contact practitioner for clarification. 07/21/2025 Right leg swelling (ICD-10 - M79.89) Claire is a 70-year-old male who presents to the office today for a wound on his leg... #Wound: At this time considering that patient has had a history of a right knee replacement and a right ankle replacement we did have a discussion between ordering a workup outpatient versus sending patient to the emergency department. The patient would benefit from a stat DVT rule out along with a CT scan to look for any soft tissue infection involving his hardware placement... After having a discussion we decided it was best to send patient to [place] emergency department... I did call [facility] with an expect as the patient needs an entire workup including a CBC and imaging for further evaluation. Reassuring that patient did finish his entire course of doxycycline 100 mg twice daily. The course was not extended originally as patient was not having any edema, erythema, any signs of infection at that time. Patient remains to be afebrile with no concern for systemic infection. All questions have been answered to patient's satisfaction. Patient verbalized understanding of diagnosis and treatments explained. Advised to call sooner prior to next visit it any questions/concerns arise. Case discussed with Enoch SINGH who reviewed the assessment and plan. Chart, medications, labs, vital signs reviewed. Dictation was accomplished with the use of [employer] voice recognition software, which is prone to medical misidentifications and grammatical errors. This are unintentional and the practitioner does try to identify and correct these, but some could still be present. Please do not hesitate to contact practitioner for clarification. 07/21/2025 Encounter for examination of blood pressure without abnormal findings (ICD-10 - Z01.30) Claire is a 70-year-old male who presents to the office today for a wound on his leg... #Wound: At this time considering that patient has had a history of a right knee replacement and a right ankle replacement we did have a discussion between ordering a workup outpatient versus sending patient to the emergency department. The patient would benefit from a stat DVT rule out along with a CT scan to look for any soft tissue infection involving his hardware placement... After having a discussion we decided it was best to send patient to [place] emergency department... I did call [facility] with an expect as the patient needs an entire workup including a CBC and imaging for further evaluation. Reassuring that patient did finish his entire course of doxycycline 100 mg twice daily. The course was not extended originally as patient was not having any edema, erythema, any signs of infection at that time. Patient remains to be afebrile with no concern for systemic infection. All questions have been answered to patient's satisfaction. Patient verbalized understanding of diagnosis and treatments explained. Advised to call sooner prior to next visit it any questions/concerns arise. Case discussed with Enoch SINGH who reviewed the assessment and plan. Chart, medications, labs, vital signs reviewed. Dictation was accomplished with the use of [employer] voice recognition software, which is prone to medical misidentifications and grammatical errors. This are unintentional and the practitioner does try to identify and correct these, but some could still be present. Please do not hesitate to contact practitioner for clarification. Plan Of Treatment Next Appt Details Provider Name:GI Jensen, 10/19/2025 09:00:00 AM, [address] [facility], [facility] [address], [place], [address], Medications Administered Medication Instructions Date of Administration Dosage Notes [facility] B12 INJECTION 07/21/2025 1 mL lot#[id number] Progress Notes * CLAIRE KESSLER RDOB:[birth year] (70 yo M)Acc No.[id number]:07/21/2025 Progress Notes Patient: CLAIRE MURRAY Provider: Dano IBARRA PA-C :1955 A ge:70 Y S ex:Male Date:07/21/2025 Address:[address] [place] [address], [facility] Subjective: * Chief Complaints: * 1 . Patient is here for in office follow up. Wound on leg has not gotten better. * HPI: C onstitutional: Claire is a 70-year-old male with a past medical history of hypertension, primary insomnia, hyperlipidemia, chronic pain, GERD who was crossing paths with Adali Ibarra PA-C in the parking lot who noticed that his right lower extremity became swollen. Adali Ibarra PA-C placed patient on the schedule to further look at his right lower extremity. Patient was not to have an appointment today. Patient was seen last week by Adali Ibarra PA-C on 07/14/2025 where he was noted to have a right lower extremity open wound that was bleeding without the presence of any edema at that time. Patient was prophylactically treated with doxycycline 100 mg twice daily x 5 days. He does admit that he took the entire course of the antibiotics. He admits that his ankle and his right lower extremity have been swollen for around a few days at this time. He states that the lower extremity is painful, he states that he was not going to call the office about this. * ROS: C onstitutional: Patient denies any excessive fatigue with exercise, no weight loss, no fever and no night sweats Eyes: No eye discharge, no itching, no redness. Advised the significance of regular eye exams to screen for glaucoma and other eye problems Ear nose throat: No sore throat, postnasal drip, runny nose, Sneezing Cardiovascular: No chest pain, no shortness of breath, no dyspnea on exertion, no PND, no orthopnea, no irregular pulse Respiratory: No chronic cough, no hemoptysis, no sputum, no wheezing GI, no diarrhea, no constipation no blood in the stools, no pain associated with eating, no indigestion Genitourinary: No painful urination no hesitancy no blood in the urine Musculoskeletal,+ right lower extremity swelling and pain, no limitations to walking and running, no joint deformity, no joint stiffness, no chronic back pain, no noise with joint movement Integumentary, no new skin rash. No new changes in skin moles Neurological: No history of seizures, memory loss, No language dysfunction, No inability to concentrate, no localized weakness, no sensation loss, no confusion Psychiatric: No depression, no suicidal thoughts, no anxiety Endocrine: No polyuria no polyphagia or polydipsia, no heat intolerance no cold intolerance Hematological: No easy bruising or Lymph node swelling. * Medical History: E ssential hypertension, Primary insomnia, Other chronic pain, Other hyperlipidemia, GERD without esophagitis. * Surgical History: r ight knee replacement 2013, stenosis spinal surgery 2015, right ankle replacement 2017. * Hospitalization/Major Diagno stic Procedure: F [place] chest pain Aug 2023. * Family History: F ather: , brain tumor. M other: , CHF. 1 sister(s) - healthy. 2 son(s) , 1 daughter(s) - healthy. . * Social History: T obacco Use: T obacco Use/Smoking A re you a f ormer smoker, H ow long has it been since you last smoked? 5 -10 years. T ob: Denies Etoh: Social/infrequent Drugs: Denies. * Medications: T aking Carvedilol 12.5 MG [...] twice a day As needed for pain, Discontinued Doxycycline Hyclate 100 MG Capsule 1 capsule with food Orally twice a day , Medication List reviewed and reconciled with the patient * Allergies: N .K.D.A. Objective: * Vitals: H R:87/min, BP:122/76mm Hg, Wt:256.6lbs, BMI:32.07Index, Ht: 75 in, Oxygen sat %:98%. * Physical Examination: G eneral: Patient is well appearing, in no acute distress, speaking in full sentences without visible respiratory distress. Well groomed, well developed. Alert, interactive. Skin: Warm, dry without new lesions HEENT: Normocephalic/atraumatic. Cardiac: Regular rate and rhythm without murmurs, rubs, or gallops. 2+ radial pulses bilaterally. Lungs: Equal chest rise and fall bilaterally. MSK:+ Right lower extremity with actively healing wounds on anterior surface of tibia + 2+ pitting edema and erythema surrounding the ankle noted + Shiny appearance along with erythematous appearance on right lower extremity + Tenderness upon palpation noted with ankle and right lower extremity Neuro: Steady gait with non-assisted ambulation observed. Psych: Stable mood and affect. Assessment: * Assessment: 1. R ight leg pain - M79.604 (Primary) 2 . O pen wound - T14.8XXA ? 3 . R ight leg swelling - M79.89 4 . E ncounter for examination of blood pressure without abnormal findings - Z01.30 Claire is a 70-year-old mal e who presents to the office today for a wound on his leg... #Wound: At this time considering that patient has had a history of a right knee replacement and a right ankle replacement we did have a discussion between ordering a workup outpatient versus sending patient to the emergency department. The patient would benefit from a stat DVT rule out along with a CT scan to look for any soft tissue infection involving his hardware placement... After having a discussion we decided it was best to send patient to [place] emergency department... I did call [facility] with an expect as the patient needs an entire workup including a CBC and imaging for further evaluation. Reassuring that patient did finish his entire course of doxycycline 100 mg twice daily. The course was not extended originally as patient was not having any edema, erythema, any signs of infection at that time. Patient remains to be afebrile with no concern for systemic infection. All questions have been answered to patient's satisfaction. Patient verbalized understanding of diagnosis and treatments explained. Advised to call sooner prior to next visit it any questions/concerns arise. Case discussed with Enoch SINGH who reviewed the assessment and plan. Chart, medications, labs, vital signs reviewed. Dictation was accomplished with the use of [employer] voice recognition software, which is prone to medical misidentifications and grammatical errors. This are unintentional and the practitioner does try to identify and correct these, but some could still be present. Please do not hesitate to contact practitioner for clarification. Plan: * Treatment: * Therapeutic Injections: [facility] B12 INJECTION : 1 mL (Route: Intramuscular) given by heri dubose on left deltoid * Procedure Codes: 3 074F SYST BP LT 130 MM HG, 3078F DIAST BP < 80 MM HG Care Plan: * Problems: * Images: Billing Information: * Visit Code: 17419 Office Visit, Est Pt., Level 4. Modifiers: SA * Procedure Codes: 3074F SYST BP LT 130 MM HG. 3078F DIAST BP < 80 MM HG. Care Plan Details* * Sign off status: Completed true * Provider: Dano IBARRA PA-C Date: 07/21/2025 Generated for Mayra sandoval/Óscar/Jaguarsmitting on: 07/21/2025 05:21 PM EDT History and Physical Notes * Physical Examination Category Sub-Category Detail Notes Section Note s General: Patient is well appearing, in no acute distress, speaking in full sentences without visible respiratory distress. Well groomed, well developed. Alert, interactive. Skin: Warm, dry without new lesions HEENT: Normocephalic/atraumatic. Cardiac: Regular rate and rhythm without murmurs, rubs, or gallops. 2+ radial pulses bilaterally. Lungs: Equal chest rise and fall bilaterally. MSK:+ Right lower extremity with actively healing wounds on anterior surface of tibia + 2+ pitting edema and erythema surrounding the ankle noted + Shiny appearance along with erythematous appearance on right lower extremity + Tenderness upon palpation noted with ankle and right lower extremity Neuro: Steady gait with non-assisted ambulation observed. Psych: Stable mood and affect.
[2025-07-21 15:53] VITALS: BP 122/69; PULSE 54; RESP 18; TEMP 36.9; O2SAT 94; BMI 30.7
--- NOTE | 2025-07-21 16:02 | ED.LOWEXIN ---
HPI - Extremity Injury (Lower) General Chief Complaint: General Medical Stated Complaint: R/O DVT, and infection on R leg. Sent from PCP Time Seen by Provider: 07/21/25 16:34 Source: patient, RN notes reviewed and old records reviewed Mode of arrival: ambulatory Limitations: no limitations History of Present Illness ED Provider: Yumiko HENSLEY Narrative: 70-year-old male presents for evaluation of right leg pain and swelling. Patient reports that 8 days ago he dropped a heavy trash can onto his right jacinto. He was wearing pants but did suffer a scratch. There was some bleeding pain He treated the area and saw his primary doctor the following day due to increased pain. He was started on doxycycline and completed a 1 week course He denies any fevers, chills, nausea, weakness. He still has pain to his right jacinto in his worse with walking. He has a remote history of a right ankle replacement He reports he was able to golf yesterday and [place] about [id number] steps 3 times a week at work His primary doctor saw him again today and referred him to the emergency department to rule out DVT Related Data Home Medications ?Medication ?Instructions ?Recorded ?Confirmed hydrochlorothiazide 25 mg tablet 25 mg PO DAILY 02/24/24 06/11/25 omeprazole magnesium 20 mg 20 mg PO DAILY@0630 02/24/24 06/11/25 tablet,delayed release rosuvastatin 20 mg tablet 10 mg PO DAILY 02/24/24 06/11/25 tramadol 50 mg tablet 50 mg PO BID PRN Pain 02/24/24 06/11/25 trazodone 100 mg tablet 100 mg PO BEDTIME 02/24/24 06/11/25 Previous Rx's ?Medication ?Instructions ?Recorded carvedilol 3.125 mg tablet 3.125 mg PO BID #60 tabs 02/25/24 duloxetine 30 mg capsule,delayed 30 mg PO BID #60 caps 06/11/25 release cephalexin 500 mg tablet 500 mg PO QID #27 tabs 07/21/25 Allergies Allergy/AdvReac Type Severity Reaction Status Date / Time No Known Allergies Allergy Verified 07/21/25 15:57 Review of Systems Constitutional: Constitutional: Denies body ache(s), Denies chills, Denies fever(s) and Denies headache(s) Eyes: Eyes: Denies blurry vision ENT: Denies dizziness and Denies headache(s) Cardiovascular: Cardiovascular: Denies chest pain and Denies dyspnea on exertion Respiratory: Respiratory: Denies cough and Denies dyspnea on exertion Gastrointestinal: Gastrointestinal: Denies abdominal pain, Denies nausea and Denies vomiting Musculoskeletal: Musculoskeletal: Reports arthralgias, Reports joint swelling and Reports limited range of motion Integumentary/Breasts: Skin/Breast: Reports erythema and Reports wounds Neurologic: Denies dizziness and Denies headache(s) Psychiatric: Psychiatric: Denies anxiety PMFSH Past Medical History Medical History Numbness and tingling in right hand Numbness and tingling of both feet Cholelithiasis Hyperlipidemia Essential hypertension Obstructive sleep apnea on CPAP Surgical History Previous back surgery H/O knee surgery History of ankle surgery S/P appendectomy Social History Social History Household Members: Significant Other Housing: House Do you presently have visiting nurse or other home services: No Unable to assess alcohol history related to: Unknown Comment: pt refuses BR assistance and alarms Patient Tobacco Use Status: Never used Tobacco Smoked in Last 30 Days: No Use of substances other than those prescribed or required for medical reasons: Unknown Advance Directives: No Advance Directives Information Provided: No Physical Exam Vital Signs: Vital Signs: Last Vital Signs Temp 98.6 F 07/21/25 16:47 Pulse 60 07/21/25 16:47 Resp 16 07/21/25 16:47 BP 122/68 07/21/25 16:47 Pulse Ox 95 07/21/25 16:47 O2 Del Method Room Air 07/21/25 16:47 BMI result Body Mass Index 30.7 Const: General: healthy appearing, comfortable, no acute distress, alert and awake Nutritional Appearance: well nourished Orientation/consciousness: patient oriented x3 HEENT: Head: Yes normocephalic and Yes atraumatic Eyes: Eyelids: Yes eyelids normal Conjunctivae: conjunctivae normal Sclerae: sclerae normal Corneas: corneas normal Pupils: Equal, round and reactive pupils present EOM: EOMs intact bilaterally Neck: Neck: Yes full ROM Resp: Effort & Inspection: normal respiratory effort, able to speak in complete sentences and not labored Skin: General skin exam: elasticity normal Neuro: General: patient oriented x3 Cranial nerves: Yes Equal, round and reactive pupils present and Yes Bilaterally intact EOM present Cognition (Neuro): normal cognition Extrem: Other: There are 2 separate abrasions there healing to the right anterior jacinto. The larger 1 is more superior, there is some surrounding erythema, no purulence or fluctuance. There is smaller and, scattered abrasion to the right lower jacinto. Again with surrounding erythema without purulence or fluctuance. There was no calf tenderness. There is 2+ pitting edema to the right lower extremity. Negative Homans sign. Capillary refill intact, DP pulses 2+ and equal Course Course Course Narrative: This is an RME: Additional HPI, ROS, PE not included below will be deferred to primary provider. RME assessment and note performed by: Dena Scott PA-C This is a 70-year-old male who presents emergency department with concerns of right lower extremity swelling and pain. Patient had a table fell on his leg 1 week ago, he was started on doxycycline. He states that he completed the full course however has redness, and swelling to his right lower extremity. Patient was called in as an expect as patient does have a total right ankle replacement and wanted to ensure that the hardware is not infected. He had this performed at [facility]. Plan: Labs, Xray, US Medical Decision Making Medical Decision Making [facility] Narrative: 70-year-old male presents for evaluation of right leg pain. He did have a injury 8 days ago. X-rays are negative for fracture or hardware misplacement. He had an ultrasound is negative for DVT. I suspect he has increased swelling due to scar tissue and previous surgery in the right lower extremity. He appears to have a mild infection. He has no fevers, he is not tachycardic or hypotensive, does not meet sepsis criteria. There was no evidence to suggest arterial insufficiency. Differential Diagnosis Differential Diagnoses: The differential diagnosis associated with the presentation includes Cellulitis Abrasion Venous insufficiency Peripheral edema Dependent edema DVT Lab Data 07/21/25 17:41 07/21/25 17:41 Labs: Lab Results 07/21/25 Range/Units 17:41 WBC 8.2 (4.8-10.8) X10*3/uL RBC 4.27 L (4.60-5.80) X10*6/uL Hgb 14.0 (14.0-18.0) g/dl Hct 37.8 L (42.0-52.0) % MCV 88.5 (80.0-98.0) fL MCH 32.8 (27.0-33.0) pg MCHC 37.0 H (31.0-36.0) g/dl RDW 13.2 (11.0-16.0) % Plt Count 179 D (160-400) X10*3/uL MPV 11.9 (9.4-12.4) fL Immature Gran % (Auto) 0.2 (0.0-0.4) % Neut % (Auto) 66.7 (45-73) % Lymph % (Auto) 20.5 (20-40) % [place] % (Auto) 8.7 (2-11) % Eos % (Auto) 3.2 (0-4) % Baso % (Auto) 0.7 (0-2) % Lymph # (Auto) 1.7 (1.2-4.9) X10*3/uL [place] # (Auto) 0.7 (0.1-1.2) X10*3/uL Eos # (Auto) 0.3 (0.0-0.4) X10*3/uL Baso # (Auto) 0.1 (0.0-0.2) X10*3/uL Abs Immat Gran (auto) 0.02 (0.00-0.03) X10*3/uL Absolute Neuts (auto) 5.5 (2.0-8.3) x10*3/uL Absolute Nucleated RBC 0.000 (0.0-0.012) X10*3/uL Nucleated RBC % (auto) 0.0 (0.0-0.2) /100WBC Sodium 140 (135-145) mmol/L Potassium 3.7 (3.3-5.1) mmol/L Chloride 104 (96-108) mmol/L Carbon Dioxide 28 (22-29) mmol/L Anion Gap 12 (12-20) BUN 20 H (9-16) mg/dL Creatinine 0.83 (0.5-1.4) mg/dL Estim Creat Clear Calc 114.2 Estimated GFR > 60 Random Glucose 152 H (60-115) mg/dL Calcium 9.7 D (8.4-10.2) mg/dL Magnesium 1.9 (1.6-2.6) mg/dL Total Bilirubin 1.1 H (0.0-1.0) mg/dL Direct Bilirubin 0.4 (0.0-0.5) mg/dL AST 26 (5-37) U/L ALT 27 (0-40) U/L Alkaline Phosphatase 56 (39-117) U/L C-Reactive Protein 0.88 H (< or = 0.50) mg/dL Total Protein 7.4 (6.5-8.0) g/dL Albumin 4.6 (3.5-5.0) g/dL Radiology Impression Discussion of test interpretation with radiology: I have reviewed the radiologist's reading. Radiologist Impression: FINDINGS: Respiratory variation, normal compression and augmented flow are noted throughout the right lower extremity. The visualized common femoral vein, superficial femoral vein, profunda femoral vein, popliteal vein and midcalf peroneal and posterior tibial venous segments show no evidence of deep venous thrombosis. There is no Pendleton's cyst. US/US venous duplex LE RT IMPRESSION: No evidence of deep venous thrombosis involving the right lower extremity. Electronically signed by: Harvinder Gonzales MD 07/21/2025 04:49 PM EDT FINDINGS: No fracture, dislocation, or suspicious bone lesion. 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 Prosthetic elements appear intact and well seated. There are anchors in the fibular head. There are moderate degenerative changes within the ankle joint. The subtalar joints and calcaneus appear grossly normal. There is calcification of the plantar fascia noted. There is circumferential soft tissue swelling about the ankle. XR/XR ankle RT min 3V IMPRESSION: 1. No acute bony abnormalities. 2. Tibiotalar joint replacement without radiographic complication. 3. 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 4. Linear calcification of the plantar fascia. 5. Circumferential soft tissue swelling. Electronically signed by: Harvinder Gonzales MD 07/21/2025 04:52 PM EDT FINDINGS: No fracture, dislocation, or suspicious bone lesion. 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 No complication evident. There are vascular calcifications in the soft tissues. There is mild subcutaneous cutaneous edema throughout. XR/XR tibia fibula RT 2V IMPRESSION: No acute bony findings in the right tibia and fibula. Electronically signed by: Harvinder Gonzales MD 07/21/2025 04:54 PM EDT RP Discharge Plan Discharge Clinical Impression: Cellulitis of leg, right Patient Disposition: Home, Self-Care Instructions: Cellulitis (ED) Additional Instructions: Your workup in the ER today was reassuring. This includes your blood work. Your ultrasound did not show any evidence of blood clot in the right lower leg. He x-ray showed soft tissue swelling but no evidence of fracture or hardware your misalignment. I recommend staying off your feet for the next 5-7 days. Take the antibiotic 4 times daily for 1 week. Return for new or worsening symptoms, especially develop fevers or worsening redness and pain Prescriptions: New cephalexin 500 mg tablet 500 mg PO QID Qty: 27 0RF No Action rosuvastatin 20 mg tablet 10 mg PO DAILY tramadol 50 mg tablet 50 mg PO BID PRN (Reason: Pain) trazodone 100 mg tablet 100 mg PO BEDTIME hydrochlorothiazide 25 mg tablet 25 mg PO DAILY omeprazole magnesium 20 mg Tablet,Delayed Release (Dr/Ec) 20 mg PO DAILY@0630 carvedilol 3.125 mg Tablet 3.125 mg PO BID Qty: 60 0RF Protocol: Hold for SBP/HR < HOLD for SBP < : 90 HOLD for HR < : 60 duloxetine 30 mg capsule,delayed release(DR/EC) 30 mg PO BID Qty: 60 6RF Print Language: Arabic
[2025-07-21 16:47] VITALS: BP 122/68; PULSE 60; RESP 16; TEMP 37; O2SAT 95
--- OUTSIDE RECORDS SUMMARY | 2025-07-21 17:21 | XMS_ITS | Encounter Summary ---
Author Organization [facility] Address [address] [place] [phone] Phone Care Team Providers Care Lift Driver Name Role Phone Judi Reza MD Primary Care Provider Unavailabl e Encounter Details Date Type Department Care Team (Late st Contact Info) Description 04/02/2017 Procedure [facility] [address] [place] [address] Social History Tobacco Use Types Packs/Day Years [...] on filedocumented in this encounter Care Teams Lift Driver Relationship Specialty Start Date End Date Judi Reza MD PCP - General Internal Medicine 07/06/15 documented as of this encounter Additional Source Comments The information contained in this document represents components of the legal health record. It is not the complete legal health record.[facility]
--- OUTSIDE RECORDS SUMMARY | 2025-07-21 17:21 | XMS_ITS | Patient Health Record ---
Author Organization [facility] [address] Address [address] [place] [address] Care Team Providers [facility] [employer] Chief Scientist Name Role Phone GI PEREZ Unavailable [phone] JACKY YING Unavailable [phone] MEAGHANMINOR FULTON Unavailable [phone] STACEYADALI Cheek Unavailable [phone] Allergies No Known Allergies Results Component Value Reference Range Notes PSA Total+% Free (Serial) Reviewed date:05/04/2025 07:55:06 AM Interpretation: Performing Lab:[facility], [address] [place] [address], Phone - [phone], Director - Karyn Notes/Report: Prostate Specific Ag 0.4 0.0-4.0 ng/mL Robe ECLIA methodology. . According to the [place] [employer], Serum PSA should decrease and remain at undetectable levels after radical prostatectomy. The AUA defines biochemical recurrence as an initial PSA value 0.2 ng/mL or greater followed by a subsequent confirmatory PSA value 0.2 ng/mL or greater. Values obtained with different assay methods or kits cannot be used interchangeably. Results cannot be interpreted as absolute evidence of the presence or absence of malignant disease. PSA, Free 0.21 N/A ng/mL Robe ECLIA met hodology. % Free PSA 52.5 The table below lists the probability of prostate cancer for men with non-suspicious GRANT results and total PSA between 4 and 10 ng/mL, by patient age (Zacarias et al, TONI 1998, 279:1542). % Free PSA 50-64 yr 65-75 yr 0.00-10.00% 56% 55% 10.01-15.00% 24% 35% 15.01-20.00% 17% 23% 20.01-25.00% 10% 20% >25.00% 5% 9% Please note: Zacarias et al did not make specific recommendations regarding the use of percent free PSA for any other population of men. UA/M w/rflx Culture, Routine -[id number] Reviewed date:05/04/2025 07:54:58 AM Interpretation: Performing Lab:[facility], [address] [place] [address], Phone - [phone], Director - Karyn Notes/Report: Specific [place] 1.013 1.005-1.030 pH 7.5 5.0-7.5 Urine-Color Yellow Yellow Appearance Clear Clear WBC Esterase Trace Negative Protein Negative Negative/Trace Glucose Negative Negative Ketones Negative Negative Occult Blood Negative Negative Bilirubin Negative Negative Urobilinogen,Semi-Qn 1.0 0.2-1.0 mg/dL Nitrite, Urine Negative Negative Microscopic Examination See below: Micr oscopic was indicated and was performed. Urinalysis Reflex This speci men has reflexed to a Urine Culture. WBC None seen 0 - 5 /hpf RBC None seen 0 - 2 /hpf Epithelial Cells (non renal) None seen 0 - 10 /hpf Casts None seen None seen /lpf Bacteria None seen None seen/Few Urine Culture, Routine Final report Result 1 No growth TSH Rfx on Abnormal to Free [id number] Reviewed date:05/04/2025 07:53:22 AM Interpretation: Performing Lab:[facility] [place], [address] [place] [address], Phone - [phone], Director - Karyn Notes/Report: TSH 0.621 0.450-4.500 uIU/mL Comp. Metabolic Panel ([id number] Reviewed date:05/04/2025 07:54:46 AM Interpretation: Performing Lab:[facility] [place], [address] [place] [address], Phone - [phone], Director - Tamiedry Notes/Report: Glucose 130 70-99 mg/dL BUN 20 8-27 mg/dL Creatinine 0.90 0.76-1.27 mg/dL eGFR 91 >59 mL/min/1.73 BUN/Creatinine Ratio 22 10-24 Sodium 137 134-144 mmol/L Potassium 4.2 3.5-5.2 mmol/L Chloride 102 96-106 mmol/L Carbon Dioxide, Total 22 20-29 mmol/L Calcium 9.6 8.6-10.2 mg/dL Protein, Total 6.5 6.0-8.5 g/dL Albumin 4.3 3.8-4.8 g/dL Globulin, Total 2.2 1.5-4.5 g/dL Bilirubin, Total 0.7 0.0-1.2 mg/dL Alkaline Phosphatase 44 44-121 IU/L AST (SGOT) 21 0-40 IU/L ALT (SGPT) 21 0-44 IU/L Lipid Panel-[id number] Reviewed date:05/04/2025 07:53:40 AM Interpretation: Performing Lab:[facility] [place], [address] [facility], Phone - [phone], Director - Karyn Notes/Report: Cholesterol, Total 138 100-199 mg/dL Triglycerides 73 0-149 mg/dL HDL Cholesterol 46 >39 mg/dL VLDL Cholesterol Papo 15 5-40 mg/dL LDL Chol Calc (NIH) 77 0-99 mg/dL Vitamin D, 17-Ndborem-[id number] Reviewed date:05/04/2025 07:53:22 AM Interpretation: Performing Lab:[facility] [place], [address] [facility], Phone - [phone], Director - Karyn Notes/Report: Vitamin D, 25-Hydroxy 54.3 30.0-100.0 ng/mL Vitamin D deficiency has been defined by the [place] [employer] and an Endocrine Society practice guideline as a level of serum 25-OH vitamin D less than 20 ng/mL (1,2). The Endocrine Society went on to further define vitamin D insufficiency as a level between 21 and 29 ng/mL (2). 1. IOM ([place] [employer]). 2010. Dietary reference intakes for calcium and D. [place]: The National Academies Press. 2. Chelsey MF, Anthony NC, Rhea-Vicente LEVINE, et al. Evaluation, treatment, and prevention of vitamin D deficiency: an Endocrine Society clinical practice guideline. JCEM. 2010; 96(7):1911-30. CBC With Differential/Platel et-[id number] Reviewed date:05/04/2025 07:53:40 AM Interpretation: Performing Lab:[facility] [place], [address] [facility], [place], Phone - [phone], Director - MDJodry Notes/Report: WBC 5.6 3.4-10.8 x10E3/uL RBC 4.36 4.14-5.80 x10E6/uL Hemoglobin 14.1 13.0-17.7 g/dL Hematocrit 41.1 37.5-51.0 % MCV 94 79-97 fL MCH 32.3 26.6-33.0 pg MCHC 34.3 31.5-35.7 g/dL RDW 12.9 11.6-15.4 % Platelets 170 150-450 x10E3/uL Neutrophils 66 Not Estab. % Lymphs 22 Not Estab. % Monocytes 8 Not Estab. % Eos 3 Not Estab. % Basos 1 Not Estab. % Neutrophils (Absolute) 3.7 1.4-7.0 x10E3/uL Lymphs (Absolute) 1.2 0.7-3.1 x10E3/uL Monocytes(Absolute) 0.4 0.1-0.9 x10E3/uL Eos (Absolute) 0.2 0.0-0.4 x10E3/uL Baso (Absolute) 0.1 0.0-0.2 x10E3/uL Immature Granulocytes 0 Not Estab. % Immature Grans (Abs) 0.0 0.0-0.1 x10E3/uL Folate (Folic Acid), Serum-0 16821 Reviewed date:05/04/2025 07:54:38 AM Interpretation: Performing Lab:[facility] [address], Phone - [phone], Director - Jodry Notes/Report: Folate (Folic Acid), Serum 5.6 >3.0 ng/mL A serum folate concentration of less than 3.1 ng/mL is considered to represent clinical deficiency. Vitamin [id number] Reviewed date:05/04/2025 07:54:16 AM Interpretation: Performing Lab:[facility] [address], Phone - [phone], Director - MDJodry Notes/Report: Vitamin B12 1595 627-3318 pg/mL Hemoglobin [id number] Reviewed date:05/04/2025 07:54:25 AM Interpretation: Performing Lab:[facility] [address], Phone - [phone], Director - MDJodry Notes/Report: Hemoglobin A1c 5.4 4.8-5.6 % . Prediabetes: 5.7 - 6.4 Diabetes: >6.4 Glycemic control for adults with diabetes: <7.0 Reason For Referral Reason [facility] Diagnosis 1 Neuropathic pain of both feet (G57.93) Referral Organization [facility] [address] Referring Provider First Name GI Referring Provider Last Name ANA Referring Provider Speciality Preventive Medicine Referred Provider Specialty Neurology General Notes [facility] [address], (p)[phone], (f) [phone] Clinical Notes Noemi Herrera 11:26:08 AM > referral faxed with genaro, Tha Parks 05/27/2025 04:00:36 PM >, ALEX KEVIN 05/28/2025 09:08:54 AM > Referral has faxed, [facility], [address] [facility] [address], [address], [place] [address], Phone, , Fax, , Tha Parks 06/02/2025 08:19:17 AM > refaxed to [phone] Referral Priority Routine Medications Medication SIG (Take, Route, Frequency, Duration) [...] Notes: Tob: Denies Etoh: Social/infrequent Drugs: Denies Tob: Denies Etoh: Social/infrequent Drugs: Denies Tob: Denies Etoh: Social/infrequent Drugs: Denies Tob: Denies Etoh: Social/infrequent Drugs: Denies Tob: Denies Etoh: Social/infrequent Drugs: Denies Problems Problem Type SNOMED Code ICD Code Onset Dates Problem Status W/U Status Risk Notes Problem Mixed hyperlipidemia (076026857) Mixed hyperlipidemia (E78.2) Active confirmed Problem Hyperlipidemia (36594633) Hyperlipidemia, unspecified (E78.5) Active confirmed Problem Primary insomnia (5492816) Primary insomnia (F51.01) Active confirmed Problem Chronic pain (87122872) Other chronic pain (G89.29) Active confirmed Problem Essential hypertension (10953097) Essential hypertension (I10) Active confirmed Problem Hyperlipidemia (18960675) Other hyperlipidemia (E78.49) Active confirmed Problem Obese class I (finding) (733823651243367) Obesity (BMI 30.0-34.9) (E66.9) Active confirmed Problem Gastroesophageal reflux disease (684507841) GERD without esophagitis (K21.9) Active confirmed Problem Carpal tunnel syndrome (01790334) Right carpal tunnel syndrome (G56.01) Active confirmed Problem Neuropathic pain (finding) (912814976) Neuropathic pain of both feet (G57.93) Active confirmed Vital Signs Heart Rate 87 /min 07/21/2025 Oximetry 98 % 07/21/2025 Blood pressure diastolic 76 mm Hg 07/21/2025 Height 75 in 07/21/2025 Blood pressure systolic 122 mm Hg 07/21/2025 Weight 256.6 lbs 07/21/2025 BMI 32.07 kg/m2 07/21/2025 Encounters Encounter Location Date Provider Diagnosis [facility] [address] [place], [place] 02/18/2025 TALAL YING [facility] [address] [place], [place] 03/03/2025 TALAL YING [facility] [address] [place], [place] 03/20/2025 TALAL YING [facility] [address] [place] [address] 04/10/2025 MINOR CHOI [facility] [address] [place] [address] 04/29/2025 TALAL YING [facility] [address] [place] [address] 05/07/2025 TALAL YING [facility] [address] [place] [address] 05/22/2025 TALAL YING [facility] [address] [place] [address] 06/08/2025 TALAL YING [facility] [address] [place] [address] 06/25/2025 TALAL YING [facility] [address] [place] [address] 07/09/2025 TALAL YING [facility] [address] [address] 09/09/2024 GI PEREZ Other chronic pain G89.29 ; Neuropathic pain of both feet G57.93 ; Primary insomnia F51.01 ; Essential hypertension I10 ; Other hyperlipidemia E78.49 and GERD without esophagitis K21.9 [facility] [address] [address] 12/23/2024 GI PEREZ Other chronic pain G89.29 ; Neuropathic pain of both feet G57.93 ; Primary insomnia F51.01 ; Essential hypertension I10 ; Other hyperlipidemia E78.49 and GERD without esophagitis K21.9 [facility] [address] [address] 02/17/2025 GI PEREZ Neuropathic pain of both feet G57.93 ; Adult general medical exam Z00.00 ; Other chronic pain G89.29 ; Primary insomnia F51.01 ; Essential hypertension I10 ; Other hyperlipidemia E78.49 ; GERD without esophagitis K21.9 ; Depression screen Z13.31 and Alcohol screening Z13.39 [facility] [address] [address] 05/14/2025 GI PEREZ Other chronic pain G89.29 ; Neuropathic pain of both feet G57.93 ; Primary insomnia F51.01 ; Essential hypertension I10 ; Other hyperlipidemia E78.49 and GERD without esophagitis K21.9 [facility] [address] [place], [place] 06/25/2025 GI PEREZ Right carpal tunnel syndrome G56.01 and Neuropathic pain of both feet G57.[address] [facility] [address] [place] [address] 07/14/2025 ADALI STACEY Open wound T14.8XXA ; Pain R52 ; Mixed hyperlipidemia E78.2 and Encounter for examination of blood pressure without abnormal findings Z01.[address] [facility] [address] [place] [address] 07/21/2025 ADALI STACEY Right leg pain M79.6 04 ; Open wound T14.8XXA ; Right leg swelling M79.89 and Encounter for examination of blood pressure without abnormal findings Z01.30 [facility] [address] [place], [place] 10/16/2024 GI PEREZ [facility] [address] [place] [address] 10/23/2024 GI PEREZ [facility] [address] [place], [place] 10/27/2024 GI PEREZ [facility] [address] [place], [place] 02/17/2025 GI PEREZ Neuropathy G62.9 [facility] [address] [place], [place] 02/24/2025 TALAL YING [facility] [address] [place], [place] 03/02/2025 TALAL YING [facility] [address] [place] [address] 03/18/2025 GI PEREZ [facility] [address] [place], [place] 03/20/2025 GI PEREZ Other hyperlipidemia E78.49 [facility] [address] [place] [address] 03/30/2025 GI PEREZ Leg pain, right M79. 604 ; Leg pain, left M79.605 and Neuropathic pain of both feet G57.[address] [facility] [address] [place] [address] 04/30/2025 [place] [facility] [address] [place] [address] 05/14/2025 GI [place] [facility] [address] [place] [address] 05/15/2025 GI [place] [facility] [address] [place] [address] 07/14/2025 GI [place] [facility] [address] [place] [address] 11/28/2024 TALAL YING [facility] [address] [place] [address] 11/28/2024 GI [place] [facility] [address] [place] [address] 01/19/2025 TALAL YING [facility] [address] [place] [address] 03/25/2025 TALAL YING [facility] [address] [place] [address] 03/26/2025 TALAL YING [facility] [address] [place] [address] 03/26/2025 TALAL YING [facility] [address] [place] [address] 03/31/2025 GI [place] Other chronic pain G89.29 [facility] [address] [place] [address] 04/09/2025 GI [place] [facility] [address] [place] [address] 04/10/2025 GI [place] [facility] [address] [place] [address] 04/10/2025 GI [place] [facility] [address] [place] [address] 04/21/2025 GI [place] [facility] [address] [place] [address] 04/29/2025 GI [place] [facility] [address] [place] [address] 05/26/2025 GI PEREZ [facility] [address] [facility] [address] [place] [address] 06/01/2025 GI PEREZ Assessments Encounter Date Diagnosis (ICD Code) Assessment Notes Treatment Notes Treatment Clinical Notes Section Notes 09/09/2024 Other chronic pain (ICD-10 - G89.29) Patricio is a 69-year-old male with a PMH of chronic pain, insomnia, HTN, HLD, GERD that presents for follow-up visit. #Chronic pain. Patient reports chronic low back, knee, and ankle pain. States pain is exacerbated with physical activity such as yard work or golfing. Takes Percocet 5/325 mg as needed, denies regular use. Additionally takes tramadol 50 mg twice daily as needed. Refills of Percocet provided today. Patient reports recent worsening of bilateral foot pain. Describes the pain as walking on blisters . Patient due to see orthopedics 09/16/2024 as he believes there is underlying neuropathy likely from his previous surgical procedures. On exam there is diminished sensation of bilateral feet, R>L. DP pulses 2+ bilaterally. Equal tone bilaterally. No visible wounds/lesions. Patient is encouraged to have orthopedic office fax us their note for continuity of care. Consider nightly gabapentin pending orthopedic evaluation. #Insomnia: Patient takes trazodone 100 mg at bedtime nightly. Interested in decreasing dose. Rx for trazodone 50 mg at bedtime sent to pharmacy. Reviewed proper use/side effects including but not limited to drowsiness, dry mouth, dizziness, headaches, etc.. Patient understands he may take 1 to 2 tablets nightly as needed. #HTN: BP controlled in office at 124/78. Patient interested in discontinuing HCTZ 25 mg once daily as it makes him urinate frequently. Denies additional urinary symptoms. Plan to request records from program clerk Dr. Gary Crain in [place], [place] prior to discontinuing this medication. Patient is agreeable. #HLD: Continue rosuvastatin 20 mg daily. All questions answered to the patient's satisfaction. Patient demonstrates understanding of diagnosis and treatments discussed. Follow-up in 4 months, sooner should any questions/concerns arise. Case discussed with collaborating physician Enoch Ying who has reviewed the assessment/plan. Chart, medications, labs, and vital signs reviewed. Dictation completed with the use of [employer] voice recognition software, prone to medical misidentifications and grammatical errors. All errors are unintentional. Although the practitioner does try to identify and correct errors, some may be present. Please do not hesitate to contact the practitioner for clarification. 09/09/2024 Neuropathic pain of both feet (ICD-10 - G57.93) Patricio is a 69-year-old male with a PMH of chronic pain, insomnia, HTN, HLD, GERD that presents for follow-up visit. #Chronic pain. Patient reports chronic low back, knee, and ankle pain. States pain is exacerbated with physical activity such as yard work or golfing. Takes Percocet 5/325 mg as needed, denies regular use. Additionally takes tramadol 50 mg twice daily as needed. Refills of Percocet provided today. Patient reports recent worsening of bilateral foot pain. Describes the pain as walking on blisters . Patient due to see orthopedics 09/16/2024 as he believes there is underlying neuropathy likely from his previous surgical procedures. On exam there is diminished sensation of bilateral feet, R>L. DP pulses 2+ bilaterally. Equal tone bilaterally. No visible wounds/lesions. Patient is encouraged to have orthopedic office fax us their note for continuity of care. Consider nightly gabapentin pending orthopedic evaluation. #Insomnia: Patient takes trazodone 100 mg at bedtime nightly. Interested in decreasing dose. Rx for trazodone 50 mg at bedtime sent to pharmacy. Reviewed proper use/side effects including but not limited to drowsiness, dry mouth, dizziness, headaches, etc.. Patient understands he may take 1 to 2 tablets nightly as needed. #HTN: BP controlled in office at 124/78. Patient interested in discontinuing HCTZ 25 mg once daily as it makes him urinate frequently. Denies additional urinary symptoms. Plan to request records from program clerk Dr. Gary Crain in [place], [place] prior to discontinuing this medication. Patient is agreeable. #HLD: Continue rosuvastatin 20 mg daily. All questions answered to the patient's satisfaction. Patient demonstrates understanding of diagnosis and treatments discussed. Follow-up in 4 months, sooner should any questions/concerns arise. Case discussed with collaborating physician Enoch Ying who has reviewed the assessment/plan. Chart, medications, labs, and vital signs reviewed. Dictation completed with the use of [employer] voice recognition software, prone to medical misidentifications and grammatical errors. All errors are unintentional. Although the practitioner does try to identify and correct errors, some may be present. Please do not hesitate to contact the practitioner for clarification. 12/23/2024 Other chronic pain (ICD-10 - G89.29) Patricio is a 69-year-old male with a PMH of chronic pain, insomnia, HTN, HLD, GERD that presents for follow-up visit. #Chronic pain: Patient reports chronic low back, knee, and ankle pain. States pain is exacerbated with physical activity such as yard work or golfing. Takes Percocet 5/325 mg as needed, Last filled in October. Refill provided today. Proper use and side effects including but not limited to respiratory suppression, dizziness, sedation. He communicates verbal understanding. #Neuropathy: Patient started on pregabalin by orthopedic provider. Initially started on pregabalin 75 mg twice daily. Dose was then increased to 150 mg twice daily at which time the patient experienced dizziness. Dose was then decreased with goal of tapering off. Patient has successfully discontinued medication with resolution of dizziness. Denies current dizziness, gait instability, or difficulty walking. Continues to experience neuropathy of bilateral lower extremities. Unchanged since time of last visit. Plan to initiate treatment with gabapentin. Plan for 100 mg nightly x 1 week, if tolerated can increase to 100 mg twice daily. Reviewed proper use and side effects of medication including dizziness, fatigue, somnolence. Patient demonstrates understanding of above plan. #Insomnia: Patient taking trazodone 100 mg nightly as needed. Attempted to decrease dose to 50 mg as needed without significant effect. #HTN: BP stable in office at 128/50. Patient taking carvedilol 12.5 mg twice daily and HCTZ 25 mg once daily. Follows with program clerk Dr. Gary Crain in [place], [place] - seen recently. Records requested for review. #HLD: Patient states regimen was recently changed. Alternating rosuvastatin 20 mg and 10 mg every other day. #GERD: Continue omeprazole 20 mg once daily. All questions answered to the patient's satisfaction. Patient demonstrates understanding of diagnosis and treatments discussed. Follow-up in 6-8 weeks, sooner should any questions/concerns arise. Case discussed with collaborating physician Enoch Ying who has reviewed the assessment/plan. Chart, medications, labs, and vital signs reviewed. Dictation completed with the use of [employer] voice recognition software, prone to medical misidentifications and grammatical errors. All errors are unintentional. Although the practitioner does try to identify and correct errors, some may be present. Please do not hesitate to contact the practitioner for clarification. 12/23/2024 Neuropathic pain of both feet (ICD-10 - G57.93) Patricio is a 69-year-old male with a PMH of chronic pain, insomnia, HTN, HLD, GERD that presents for follow-up visit. #Chronic pain: Patient reports chronic low back, knee, and ankle pain. States pain is exacerbated with physical activity such as yard work or golfing. Takes Percocet 5/325 mg as needed, Last filled in October. Refill provided today. Proper use and side effects including but not limited to respiratory suppression, dizziness, sedation. He communicates verbal understanding. #Neuropathy: Patient started on pregabalin by orthopedic provider. Initially started on pregabalin 75 mg twice daily. Dose was then increased to 150 mg twice daily at which time the patient experienced dizziness. Dose was then decreased with goal of tapering off. Patient has successfully discontinued medication with resolution of dizziness. Denies current dizziness, gait instability, or difficulty walking. Continues to experience neuropathy of bilateral lower extremities. Unchanged since time of last visit. Plan to initiate treatment with gabapentin. Plan for 100 mg nightly x 1 week, if tolerated can increase to 100 mg twice daily. Reviewed proper use and side effects of medication including dizziness, fatigue, somnolence. Patient demonstrates understanding of above plan. #Insomnia: Patient taking trazodone 100 mg nightly as needed. Attempted to decrease dose to 50 mg as needed without significant effect. #HTN: BP stable in office at 128/50. Patient taking carvedilol 12.5 mg twice daily and HCTZ 25 mg once daily. Follows with program clerk Dr. Gary Crain in [facility], [place] - seen recently. Records requested for review. #HLD: Patient states regimen was recently changed. Alternating rosuvastatin 20 mg and 10 mg every other day. #GERD: Continue omeprazole 20 mg once daily. All questions answered to the patient's satisfaction. Patient demonstrates understanding of diagnosis and treatments discussed. Follow-up in 6-8 weeks, sooner should any questions/concerns arise. Case discussed with collaborating physician Enoch Ying who has reviewed the assessment/plan. Chart, medications, labs, and vital signs reviewed. Dictation completed with the use of [employer] voice recognition software, prone to medical misidentifications and grammatical errors. All errors are unintentional. Although the practitioner does try to identify and correct errors, some may be present. Please do not hesitate to contact the practitioner for clarification. 02/17/2025 Adult general medical exam (ICD-10 - Z00.00) Patricio is a 69-year-old male with a PMH of chronic pain, insomnia, HTN, HLD, GERD that presents for MWV. Complete paperwork has been reviewed/updated and has been filed and scanned. Cognition assessed and within reasonable limits. Fall risk assessed - and negative. Cautioned opioid use and risk for falls. #Labs: Baseline laboratory evaluation including CBC, CMP, lipid panel, hemoglobin A1c, TSH, PSA, UA, and vitamin D ordered to be evaluated at time of CPE. #Chronic pain: Patient reports chronic low back, knee, and ankle pain. States pain is exacerbated with physical activity such as yard work or golfing. Takes Percocet 5/325 mg as needed although dislikes the way this medication makes him feel. Previously took tramadol and is interested in transitioning back to this due to better tolerability. Patient may take tramadol as alternative. Discussed the importance of not taking tramadol and Percocet together due to risk of respiratory suppression, dizziness, sedation, and even . Patient communicates verbal understanding. #Neuropathy: Patient reports sensation of bilateral foot discomfort, describes it as walking on blisters . Has tried both pregabalin and gabapentin without significant symptom improvement - self discontinued gabapentin. States he saw his PT who suggested underlying vascular issue. On exam of the bilateral lower extremities, there is no significant discoloration or ulcer formation. There is diffuse skin changes involving the entire surface area of the bilateral lower extremities this is likely due to age-related changes/sun exposure. There is mild decreased sensation on the plantar aspects of bilateral feet. DP pulses 3+ and equal bilaterally. Will order baseline labs with added B12 and folate. Plan to proceed with bilateral ABIs. Consider vascular surgery referral pending SYDNIE results. #Insomnia: Patient taking trazodone 100 mg nightly as needed. #HTN: Follows with program clerk Dr. Gary Crain in [place], [place] - due to f/u 2025. BP stable in office at 128/82. Continue carvedilol 12.5 mg twice daily and HCTZ 25 mg once daily. #HLD: Continue alternating rosuvastatin 20 mg and 10 mg every other day. Lipid panel ordered. #GERD: Continue omeprazole 20 mg once daily. Patient seen and examined. Comprehensive discussion was done on the followin. Discussed the importance of a diet rich in fruit, vegetables, legumes and healthy fats. Patient advised to avoid processed food and carbohydrates, added sugars, and saturated/trans fats. When possible, prepare your own meals and avoid fast food. Read nutrition labels - -void ingredients including high fructose corn syrup and preservatives. Be contentious of daily calorie intake and weight. 2. Discussed the importance of regular physical activity. Recommended a goal 6-10k steps or 30 minutes of walking per day. Discussed the benefit of weight-bearing exercise and strength training with proper body mechanics/safety precautions. Other activities including cycling, hiking, etc. are recommended and encouraged. Patient advised to seek medical attention for any SOB, chest pain, muscle or joint pain associated with exercise. 3. Discussed risks and benefits of age-appropriate screening guidelines including but not limited to colonoscopy (UTD 2020) and PSA (ordered). 4. Discussed safe driving, utilization of seat belts, and the importance of refraining from smartphone while driving. 5. Age-appropriate immunizations were discussed including but not limited to Shingles vaccine (UTD 02/25/2023), pneumonia vaccine (UTD 10/08/2020), RSV vaccine (UTD 06/21/2024), Tdap vaccine (recommending he update), etc. All questions answered to the patient's satisfaction. Patient demonstrates understanding of diagnosis and treatments discussed. Follow-up in 6-8 weeks, sooner should any questions/concerns arise. Case discussed with collaborating physician Enoch Ying who has reviewed the assessment/plan. Chart, medications, labs, and vital signs reviewed. Dictation completed with the use of [employer] voice recognition software, prone to medical misidentifications and grammatical errors. All errors are unintentional. Although the practitioner does try to identify and correct errors, some may be present. Please do not hesitate to contact the practitioner for clarification. Total time spent was 45 minutes with greater than 50% spent on counseling and coordinating care 02/17/2025 Neuropathic pain of both feet (ICD-10 - G57.93) Patricio is a 69-year-old male with a PMH of chronic pain, insomnia, HTN, HLD, GERD that presents for MWV. Complete paperwork has been reviewed/updated and has been filed and scanned. Cognition assessed and within reasonable limits. Fall risk assessed - and negative. Cautioned opioid use and risk for falls. #Labs: Baseline laboratory evaluation including CBC, CMP, lipid panel, hemoglobin A1c, TSH, PSA, UA, and vitamin D ordered to be evaluated at time of CPE. #Chronic pain: Patient reports chronic low back, knee, and ankle pain. States pain is exacerbated with physical activity such as yard work or golfing. Takes Percocet 5/325 mg as needed although dislikes the way this medication makes him feel. Previously took tramadol and is interested in transitioning back to this due to better tolerability. Patient may take tramadol as alternative. Discussed the importance of not taking tramadol and Percocet together due to risk of respiratory suppression, dizziness, sedation, and even . Patient communicates verbal understanding. #Neuropathy: Patient reports sensation of bilateral foot discomfort, describes it as walking on blisters . Has tried both pregabalin and gabapentin without significant symptom improvement - self discontinued gabapentin. States he saw his PT who suggested underlying vascular issue. On exam of the bilateral lower extremities, there is no significant discoloration or ulcer formation. There is diffuse skin changes involving the entire surface area of the bilateral lower extremities this is likely due to age-related changes/sun exposure. There is mild decreased sensation on the plantar aspects of bilateral feet. DP pulses 3+ and equal bilaterally. Will order baseline labs with added B12 and folate. Plan to proceed with bilateral ABIs. Consider vascular surgery referral pending SYDNIE results. #Insomnia: Patient taking trazodone 100 mg nightly as needed. #HTN: Follows with program clerk Dr. Gary Crain in [facility], [place] - due to f/u 2025. BP stable in office at 128/82. Continue carvedilol 12.5 mg twice daily and HCTZ 25 mg once daily. #HLD: Continue alternating rosuvastatin 20 mg and 10 mg every other day. Lipid panel ordered. #GERD: Continue omeprazole 20 mg once daily. Patient seen and examined. Comprehensive discussion was done on the followin. Discussed the importance of a diet rich in fruit, vegetables, legumes and healthy fats. Patient advised to avoid processed food and carbohydrates, added sugars, and saturated/trans fats. When possible, prepare your own meals and avoid fast food. Read nutrition labels - -void ingredients including high fructose corn syrup and preservatives. Be contentious of daily calorie intake and weight. 2. Discussed the importance of regular physical activity. Recommended a goal 6-10k steps or 30 minutes of walking per day. Discussed the benefit of weight-bearing exercise and strength training with proper body mechanics/safety precautions. Other activities including cycling, hiking, etc. are recommended and encouraged. Patient advised to seek medical attention for any SOB, chest pain, muscle or joint pain associated with exercise. 3. Discussed risks and benefits of age-appropriate screening guidelines including but not limited to colonoscopy (UTD 2020) and PSA (ordered). 4. Discussed safe driving, utilization of seat belts, and the importance of refraining from smartphone while driving. 5. Age-appropriate immunizations were discussed including but not limited to Shingles vaccine (UTD 02/25/2023), pneumonia vaccine (UTD 10/08/2020), RSV vaccine (UTD 06/21/2024), Tdap vaccine (recommending he update), etc. All questions answered to the patient's satisfaction. Patient demonstrates understanding of diagnosis and treatments discussed. Follow-up in 6-8 weeks, sooner should any questions/concerns arise. Case discussed with collaborating physician Enoch Ying who has reviewed the assessment/plan. Chart, medications, labs, and vital signs reviewed. Dictation completed with the use of [employer] voice recognition software, prone to medical misidentifications and grammatical errors. All errors are unintentional. Although the practitioner does try to identify and correct errors, some may be present. Please do not hesitate to contact the practitioner for clarification. Total time spent was 45 minutes with greater than 50% spent on counseling and coordinating care 02/17/2025 Neuropathy (ICD-10 - G62.9) 03/20/2025 Other hyperlipidemia (ICD-10 - E78.49) 03/30/2025 Leg pain, right (ICD-10 - M79.604) 05/14/2025 Other chronic pain (ICD-10 - G89.29) Patricio is a 69-year-old male with a PMH of chronic pain, insomnia, HTN, HLD, GERD that presents for follow-up visit. #Labs: Baseline laboratory evaluation including CBC, CMP, lipid panel, hemoglobin A1c, TSH, and vitamin D drawn 05/02/2025, reviewed today. All labs without acute concerns. #Chronic pain: Patient reports chronic low back, knee, and ankle pain. States pain is exacerbated with physical activity such as yard work or golfing. Currently taking tramadol 50 mg once to twice daily as needed for pain, feels this helps sensation/pain in bilateral lower extremities. Refill provided. Reviewed risks for respiratory suppression, dizziness, sedation, and even with opioid use, patient communicates verbal understanding. #Neuropathy: Patient reports sensation of bilateral foot discomfort, describes it as walking on blisters . Patient saw [facility] 10/10/2024 for this complaint who performed bilateral foot exams which were without acute concerns. Has tried pregabalin to little symptom improvement. Bilateral ABIs within normal limits. Comprehensive labs without evidence of T2DM or B12/folate deficiency. Discussed options for continued workup including nerve conduction studies, neurology referral, vascular referral, etc. Plan to proceed with nerve conduction studies of bilateral lower extremities. Will also attempt to reinitiate treatment with gabapentin 100 mg. Patient will take 100 mg nightly, if tolerated may increase to up to 3 times daily as needed. Reviewed proper use/SE. #Insomnia: Patient taking trazodone 100 mg nightly as needed. #HTN: Follows with program clerk Dr. Gary Crain in [place], [place] - due to f/u 2025. BP stable in office at 128/82. Continue carvedilol 12.5 mg twice daily and HCTZ 25 mg once daily. #HLD: Continue alternating rosuvastatin 20 mg and 10 mg every other day. #GERD: Continue omeprazole 20 mg once daily. All questions answered to the patient's satisfaction. Patient demonstrates understanding of diagnosis and treatments discussed. Follow-up in 6-8 weeks, sooner should any questions/concerns arise. Case discussed with collaborating physician Enoch Ying who has reviewed the assessment/plan. Chart, medications, labs, and vital signs reviewed. Dictation completed with the use of [employer] voice recognition software, prone to medical misidentifications and grammatical errors. All errors are unintentional. Although the practitioner does try to identify and correct errors, some may be present. Please do not hesitate to contact the practitioner for clarification. 03/31/2025 Other chronic pain (ICD-10 - G89.29) 06/25/2025 Right carpal tunnel syndrome (ICD-10 - G56.01) Patricio is a 69-year-old male with a PMH of chronic pain, insomnia, HTN, HLD, GERD that presents for follow-up visit to discuss neuropathy. #Neuropathy: Patient reports sensation of bilateral foot discomfort, describes it as walking on blisters . Also reports neuropathy in the median nerve distribution with decreased pinch strength. He has undergone comprehensive workup including labs for evaluation of T2DM, B12/folate deficiency, and bilateral ABIs. He has additionally established care with orthopedics and more recently neurology. Following with Dr. Wright who recently d/c gabapentin and started treatment with duloxetine 30 mg twice daily which the patient feels is helpful. EMG scheduling pending. He is encouraged to continue duloxetine and f/u with neurology per their recommendations. Consider active splinting of right wrist with goal of improving symptoms and/or hand surgery referral pending EMG results. All questions answered to the patient's satisfaction. Patient demonstrates understanding of diagnosis and treatments discussed. Follow-up in September, sooner should any questions/concerns arise. Case discussed with collaborating physician Enoch Ying who has reviewed the assessment/plan. Chart, medications, labs, and vital signs reviewed. Dictation completed with the use of [employer] voice recognition software, prone to medical misidentifications and grammatical errors. All errors are unintentional. Although the practitioner does try to identify and correct errors, some may be present. Please do not hesitate to contact the practitioner for clarification. 07/14/2025 Pain (ICD-10 - R52) Zach is a pleasant 70-year-old male with a past medical history of essential hypertension, primary insomnia, pain, hyperlipidemia, GERD who presents to the office today for an urgent visit. #Open wound: Patient states that he scraped his anterior surface of his right lower extremity on a wooden table that he was folding yesterday night. The wound is open, however nonbleeding. The wound was cleaned with hydrogen peroxide, a nonstick pad was placed and an Kevin bandage was wrapped for security. 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 Doxy 100mg BID x 5 days. Patient educated on signs and symptoms of worsening infection that needs attention such as fevers, chills, surrounding erythema, discharge from the wound. Patient given extra supplies with nonstick adhesive pad and Kevin bandage. He is to change the wound daily until there is scab formation. Patient understands. All questions have been answered to patient's satisfaction. Patient verbalized understanding of diagnosis and treatments explained. Advised to call sooner prior to next visit it any questions/concerns arise. Case discussed with Enoch SINGH who reviewed the assessment and plan. Chart, medications, labs, vital signs reviewed. Dictation was accomplished with the use of [employer] voice recognition software, which is prone to medical misidentifications and grammatical errors. This are unintentional and the practitioner does try to identify and correct these, but some could still be present. Please do not hesitate to contact practitioner for clarification. 07/14/2025 Open wound (ICD-10 - T14.8XXA) Zach is a pleasant 70-year-old male with a past medical history of essential hypertension, primary insomnia, pain, hyperlipidemia, GERD who presents to the office today for an urgent visit. #Open wound: Patient states that he scraped his anterior surface of his right lower extremity on a wooden table that he was folding yesterday night. The wound is open, however nonbleeding. The wound was cleaned with hydrogen peroxide, a nonstick pad was placed and an Kevin bandage was wrapped for security. 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 Doxy 100mg BID x 5 days. Patient educated on signs and symptoms of worsening infection that needs attention such as fevers, chills, surrounding erythema, discharge from the wound. Patient given extra supplies with nonstick adhesive pad and Kevin bandage. He is to change the wound daily until there is scab formation. Patient understands. All questions have been answered to patient's satisfaction. Patient verbalized understanding of diagnosis and treatments explained. Advised to call sooner prior to next visit it any questions/concerns arise. Case discussed with Enoch SINGH who reviewed the assessment and plan. Chart, medications, labs, vital signs reviewed. Dictation was accomplished with the use of [employer] voice recognition software, which is prone to medical misidentifications and grammatical errors. This are unintentional and the practitioner does try to identify and correct these, but some could still be present. Please do not hesitate to contact practitioner for clarification. 07/21/2025 Right leg pain (ICD-10 - M79.604) Zach is a 70-year-old male who presents to [...] it was best to send patient to [place] emergency department... I did call [facility] with an expect as the patient needs [...] Dictation was accomplished with the use of [employer] voice recognition software, which is prone to medical misidentifications and grammatical errors. This are unintentional and the practitioner does try to identify and correct these, but some could still be present. Please do not hesitate to contact practitioner for clarification. 07/21/2025 Open wound (ICD-10 - T14.8XXA) Zach is a 70-year-old male who presents to [...] it was best to send patient to [place] emergency department... I did call [facility] with an expect as the patient needs [...] Dictation was accomplished with the use of [employer] voice recognition software, which is prone to medical misidentifications and grammatical errors. This are unintentional and the practitioner does try to identify and correct these, but some could still be present. Please do not hesitate to contact practitioner for clarification. 07/21/2025 Right leg swelling (ICD-10 - M79.89) Zach is a 70-year-old male who presents to [...] it was best to send patient to [place] emergency department... I did call [facility] with an expect as the patient needs [...] Dictation was accomplished with the use of [employer] voice recognition software, which is prone to medical misidentifications and grammatical errors. This are unintentional and the practitioner does try to identify and correct these, but some could still be present. Please do not hesitate to contact practitioner for clarification. 06/25/2025 Neuropathic pain of both feet (ICD-10 - G57.93) Patricio is a 69-year-old male with a PMH of chronic pain, insomnia, HTN, HLD, GERD that presents for follow-up visit to discuss neuropathy. #Neuropathy: Patient reports sensation of bilateral foot discomfort, describes it as walking on blisters . Also reports neuropathy in the median nerve distribution with decreased pinch strength. He has undergone comprehensive workup including labs for evaluation of T2DM, B12/folate deficiency, and bilateral ABIs. He has additionally established care with orthopedics and more recently neurology. Following with Dr. Wright who recently d/c gabapentin and started treatment with duloxetine 30 mg twice daily which the patient feels is helpful. EMG scheduling pending. He is encouraged to continue duloxetine and f/u with neurology per their recommendations. Consider active splinting of right wrist with goal of improving symptoms and/or hand surgery referral pending EMG results. All questions answered to the patient's satisfaction. Patient demonstrates understanding of diagnosis and treatments discussed. Follow-up in September, sooner should any questions/concerns arise. Case discussed with collaborating physician Enoch Ying who has reviewed the assessment/plan. Chart, medications, labs, and vital signs reviewed. Dictation completed with the use of [employer] voice recognition software, prone to medical misidentifications and grammatical errors. All errors are unintentional. Although the practitioner does try to identify and correct errors, some may be present. Please do not hesitate to contact the practitioner for clarification. 07/14/2025 Mixed hyperlipidemia (ICD-10 - E78.2) Zach is a pleasant 70-year-old male with a past medical history of essential hypertension, primary insomnia, pain, hyperlipidemia, GERD who presents to the office today for an urgent visit. #Open wound: Patient states that he scraped his anterior surface of his right lower extremity on a wooden table that he was folding yesterday night. The wound is open, however nonbleeding. The wound was cleaned with hydrogen peroxide, a nonstick pad was placed and an Kevin bandage was wrapped for security. 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 Doxy 100mg BID x 5 days. Patient educated on signs and symptoms of worsening infection that needs attention such as fevers, chills, surrounding erythema, discharge from the wound. Patient given extra supplies with nonstick adhesive pad and Kevin bandage. He is to change the wound daily until there is scab formation. Patient understands. All questions have been answered to patient's satisfaction. Patient verbalized understanding of diagnosis and treatments explained. Advised to call sooner prior to next visit it any questions/concerns arise. Case discussed with Enoch SINGH who reviewed the assessment and plan. Chart, medications, labs, vital signs reviewed. Dictation was accomplished with the use of [employer] voice recognition software, which is prone to medical misidentifications and grammatical errors. This are unintentional and the practitioner does try to identify and correct these, but some could still be present. Please do not hesitate to contact practitioner for clarification. 05/14/2025 Neuropathic pain of both feet (ICD-10 - G57.93) Patricio is a 69-year-old male with a PMH of chronic pain, insomnia, HTN, HLD, GERD that presents for follow-up visit. #Labs: Baseline laboratory evaluation including CBC, CMP, lipid panel, hemoglobin A1c, TSH, and vitamin D drawn 05/02/2025, reviewed today. All labs without acute concerns. #Chronic pain: Patient reports chronic low back, knee, and ankle pain. States pain is exacerbated with physical activity such as yard work or golfing. Currently taking tramadol 50 mg once to twice daily as needed for pain, feels this helps sensation/pain in bilateral lower extremities. Refill provided. Reviewed risks for respiratory suppression, dizziness, sedation, and even with opioid use, patient communicates verbal understanding. #Neuropathy: Patient reports sensation of bilateral foot discomfort, describes it as walking on blisters . Patient saw [facility] 10/10/2024 for this complaint who performed bilateral foot exams which were without acute concerns. Has tried pregabalin to little symptom improvement. Bilateral ABIs within normal limits. Comprehensive labs without evidence of T2DM or B12/folate deficiency. Discussed options for continued workup including nerve conduction studies, neurology referral, vascular referral, etc. Plan to proceed with nerve conduction studies of bilateral lower extremities. Will also attempt to reinitiate treatment with gabapentin 100 mg. Patient will take 100 mg nightly, if tolerated may increase to up to 3 times daily as needed. Reviewed proper use/SE. #Insomnia: Patient taking trazodone 100 mg nightly as needed. #HTN: Follows with program clerk Dr. Gary Crain in [place], [place] - due to f/u 2025. BP stable in office at 128/82. Continue carvedilol 12.5 mg twice daily and HCTZ 25 mg once daily. #HLD: Continue alternating rosuvastatin 20 mg and 10 mg every other day. #GERD: Continue omeprazole 20 mg once daily. All questions answered to the patient's satisfaction. Patient demonstrates understanding of diagnosis and treatments discussed. Follow-up in 6-8 weeks, sooner should any questions/concerns arise. Case discussed with collaborating physician Enoch Ying who has reviewed the assessment/plan. Chart, medications, labs, and vital signs reviewed. Dictation completed with the use of [employer] voice recognition software, prone to medical misidentifications and grammatical errors. All errors are unintentional. Although the practitioner does try to identify and correct errors, some may be present. Please do not hesitate to contact the practitioner for clarification. 02/17/2025 Other chronic pain (ICD-10 - G89.29) Patricio is a 69-year-old male with a PMH of chronic pain, insomnia, HTN, HLD, GERD that presents for [facility]. Complete paperwork has been reviewed/updated and has been filed and scanned. Cognition assessed and within reasonable limits. Fall risk assessed - and negative. Cautioned opioid use and risk for falls. #Labs: Baseline laboratory evaluation including CBC, CMP, lipid panel, hemoglobin A1c, TSH, PSA, UA, and vitamin D ordered to be evaluated at time of CPE. #Chronic pain: Patient reports chronic low back, knee, and ankle pain. States pain is exacerbated with physical activity such as yard work or golfing. Takes Percocet 5/325 mg as needed although dislikes the way this medication makes him feel. Previously took tramadol and is interested in transitioning back to this due to better tolerability. Patient may take tramadol as alternative. Discussed the importance of not taking tramadol and Percocet together due to risk of respiratory suppression, dizziness, sedation, and even . Patient communicates verbal understanding. #Neuropathy: Patient reports sensation of bilateral foot discomfort, describes it as walking on blisters . Has tried both pregabalin and gabapentin without significant symptom improvement - self discontinued gabapentin. States he saw his PT who suggested underlying vascular issue. On exam of the bilateral lower extremities, there is no significant discoloration or ulcer formation. There is diffuse skin changes involving the entire surface area of the bilateral lower extremities this is likely due to age-related changes/sun exposure. There is mild decreased sensation on the plantar aspects of bilateral feet. DP pulses 3+ and equal bilaterally. Will order baseline labs with added B12 and folate. Plan to proceed with bilateral ABIs. Consider vascular surgery referral pending SYDNIE results. #Insomnia: Patient taking trazodone 100 mg nightly as needed. #HTN: Follows with program clerk Dr. Gary Crain in [place], [place] - due to f/u 2025. BP stable in office at 128/82. Continue carvedilol 12.5 mg twice daily and HCTZ 25 mg once daily. #HLD: Continue alternating rosuvastatin 20 mg and 10 mg every other day. Lipid panel ordered. #GERD: Continue omeprazole 20 mg once daily. Patient seen and examined. Comprehensive discussion was done on the followin. Discussed the importance of a diet rich in fruit, vegetables, legumes and healthy fats. Patient advised to avoid processed food and carbohydrates, added sugars, and saturated/trans fats. When possible, prepare your own meals and avoid fast food. Read nutrition labels - -void ingredients including high fructose corn syrup and preservatives. Be contentious of daily calorie intake and weight. 2. Discussed the importance of regular physical activity. Recommended a goal 6-10k steps or 30 minutes of walking per day. Discussed the benefit of weight-bearing exercise and strength training with proper body mechanics/safety precautions. Other activities including cycling, hiking, etc. are recommended and encouraged. Patient advised to seek medical attention for any SOB, chest pain, muscle or joint pain associated with exercise. 3. Discussed risks and benefits of age-appropriate screening guidelines including but not limited to colonoscopy (UTD 2020) and PSA (ordered). 4. Discussed safe driving, utilization of seat belts, and the importance of refraining from smartphone while driving. 5. Age-appropriate immunizations were discussed including but not limited to Shingles vaccine (UTD 02/25/2023), pneumonia vaccine (UTD 10/08/2020), RSV vaccine (UTD 06/21/2024), Tdap vaccine (recommending he update), etc. All questions answered to the patient's satisfaction. Patient demonstrates understanding of diagnosis and treatments discussed. Follow-up in 6-8 weeks, sooner should any questions/concerns arise. Case discussed with collaborating physician Enoch Ying who has reviewed the assessment/plan. Chart, medications, labs, and vital signs reviewed. Dictation completed with the use of [employer] voice recognition software, prone to medical misidentifications and grammatical errors. All errors are unintentional. Although the practitioner does try to identify and correct errors, some may be present. Please do not hesitate to contact the practitioner for clarification. Total time spent was 45 minutes with greater than 50% spent on counseling and coordinating care 03/30/2025 Leg pain, left (ICD-10 - M79.605) 09/09/2024 Primary insomnia (ICD-10 - F51.01) Patricio is a 69-year-old male with a PMH of chronic pain, insomnia, HTN, HLD, GERD that presents for follow-up visit. #Chronic pain. Patient reports chronic low back, knee, and ankle pain. States pain is exacerbated with physical activity such as yard work or golfing. Takes Percocet 5/325 mg as needed, denies regular use. Additionally takes tramadol 50 mg twice daily as needed. Refills of Percocet provided today. Patient reports recent worsening of bilateral foot pain. Describes the pain as walking on blisters . Patient due to see orthopedics 09/16/2024 as he believes there is underlying neuropathy likely from his previous surgical procedures. On exam there is diminished sensation of bilateral feet, R>L. DP pulses 2+ bilaterally. Equal tone bilaterally. No visible wounds/lesions. Patient is encouraged to have orthopedic office fax us their note for continuity of care. Consider nightly gabapentin pending orthopedic evaluation. #Insomnia: Patient takes trazodone 100 mg at bedtime nightly. Interested in decreasing dose. Rx for trazodone 50 mg at bedtime sent to pharmacy. Reviewed proper use/side effects including but not limited to drowsiness, dry mouth, dizziness, headaches, etc.. Patient understands he may take 1 to 2 tablets nightly as needed. #HTN: BP controlled in office at 124/78. Patient interested in discontinuing HCTZ 25 mg once daily as it makes him urinate frequently. Denies additional urinary symptoms. Plan to request records from program clerk Dr. Gary Crain in [place], [place] prior to discontinuing this medication. Patient is agreeable. #HLD: Continue rosuvastatin 20 mg daily. All questions answered to the patient's satisfaction. Patient demonstrates understanding of diagnosis and treatments discussed. Follow-up in 4 months, sooner should any questions/concerns arise. Case discussed with collaborating physician Enoch Ying who has reviewed the assessment/plan. Chart, medications, labs, and vital signs reviewed. Dictation completed with the use of [employer] voice recognition software, prone to medical misidentifications and grammatical errors. All errors are unintentional. Although the practitioner does try to identify and correct errors, some may be present. Please do not hesitate to contact the practitioner for clarification. 12/23/2024 Primary insomnia (ICD-10 - F51.01) Patricio is a 69-year-old male with a PMH of chronic pain, insomnia, HTN, HLD, GERD that presents for follow-up visit. #Chronic pain: Patient reports chronic low back, knee, and ankle pain. States pain is exacerbated with physical activity such as yard work or golfing. Takes Percocet 5/325 mg as needed, Last filled in October. Refill provided today. Proper use and side effects including but not limited to respiratory suppression, dizziness, sedation. He communicates verbal understanding. #Neuropathy: Patient started on pregabalin by orthopedic provider. Initially started on pregabalin 75 mg twice daily. Dose was then increased to 150 mg twice daily at which time the patient experienced dizziness. Dose was then decreased with goal of tapering off. Patient has successfully discontinued medication with resolution of dizziness. Denies current dizziness, gait instability, or difficulty walking. Continues to experience neuropathy of bilateral lower extremities. Unchanged since time of last visit. Plan to initiate treatment with gabapentin. Plan for 100 mg nightly x 1 week, if tolerated can increase to 100 mg twice daily. Reviewed proper use and side effects of medication including dizziness, fatigue, somnolence. Patient demonstrates understanding of above plan. #Insomnia: Patient taking trazodone 100 mg nightly as needed. Attempted to decrease dose to 50 mg as needed without significant effect. #HTN: BP stable in office at 128/50. Patient taking carvedilol 12.5 mg twice daily and HCTZ 25 mg once daily. Follows with program clerk Dr. Gary Crain in [place], [place] - seen recently. Records requested for review. #HLD: Patient states regimen was recently changed. Alternating rosuvastatin 20 mg and 10 mg every other day. #GERD: Continue omeprazole 20 mg once daily. All questions answered to the patient's satisfaction. Patient demonstrates understanding of diagnosis and treatments discussed. Follow-up in 6-8 weeks, sooner should any questions/concerns arise. Case discussed with collaborating physician Enoch Ying who has reviewed the assessment/plan. Chart, medications, labs, and vital signs reviewed. Dictation completed with the use of [employer] voice recognition software, prone to medical misidentifications and grammatical errors. All errors are unintentional. Although the practitioner does try to identify and correct errors, some may be present. Please do not hesitate to contact the practitioner for clarification. 09/09/2024 Essential hypertension (ICD-10 - I10) Patricio is a 69-year-old male with a PMH of chronic pain, insomnia, HTN, HLD, GERD that presents for follow-up visit. #Chronic pain. Patient reports chronic low back, knee, and ankle pain. States pain is exacerbated with physical activity such as yard work or golfing. Takes Percocet 5/325 mg as needed, denies regular use. Additionally takes tramadol 50 mg twice daily as needed. Refills of Percocet provided today. Patient reports recent worsening of bilateral foot pain. Describes the pain as walking on blisters . Patient due to see orthopedics 09/16/2024 as he believes there is underlying neuropathy likely from his previous surgical procedures. On exam there is diminished sensation of bilateral feet, R>L. DP pulses 2+ bilaterally. Equal tone bilaterally. No visible wounds/lesions. Patient is encouraged to have orthopedic office fax us their note for continuity of care. Consider nightly gabapentin pending orthopedic evaluation. #Insomnia: Patient takes trazodone 100 mg at bedtime nightly. Interested in decreasing dose. Rx for trazodone 50 mg at bedtime sent to pharmacy. Reviewed proper use/side effects including but not limited to drowsiness, dry mouth, dizziness, headaches, etc.. Patient understands he may take 1 to 2 tablets nightly as needed. #HTN: BP controlled in office at 124/78. Patient interested in discontinuing HCTZ 25 mg once daily as it makes him urinate frequently. Denies additional urinary symptoms. Plan to request records from program clerk Dr. Gary Crain in [place], [place] prior to discontinuing this medication. Patient is agreeable. #HLD: Continue rosuvastatin 20 mg daily. All questions answered to the patient's satisfaction. Patient demonstrates understanding of diagnosis and treatments discussed. Follow-up in 4 months, sooner should any questions/concerns arise. Case discussed with collaborating physician Enoch Ying who has reviewed the assessment/plan. Chart, medications, labs, and vital signs reviewed. Dictation completed with the use of [employer] voice recognition software, prone to medical misidentifications and grammatical errors. All errors are unintentional. Although the practitioner does try to identify and correct errors, some may be present. Please do not hesitate to contact the practitioner for clarification. 02/17/2025 Primary insomnia (ICD-10 - F51.01) Patricio is a 69-year-old male with a PMH of chronic pain, insomnia, HTN, HLD, GERD that presents for [facility]. Complete paperwork has been reviewed/updated and has been filed and scanned. Cognition assessed and within reasonable limits. Fall risk assessed - and negative. Cautioned opioid use and risk for falls. #Labs: Baseline laboratory evaluation including CBC, CMP, lipid panel, hemoglobin A1c, TSH, PSA, UA, and vitamin D ordered to be evaluated at time of CPE. #Chronic pain: Patient reports chronic low back, knee, and ankle pain. States pain is exacerbated with physical activity such as yard work or golfing. Takes Percocet 5/325 mg as needed although dislikes the way this medication makes him feel. Previously took tramadol and is interested in transitioning back to this due to better tolerability. Patient may take tramadol as alternative. Discussed the importance of not taking tramadol and Percocet together due to risk of respiratory suppression, dizziness, sedation, and even . Patient communicates verbal understanding. #Neuropathy: Patient reports sensation of bilateral foot discomfort, describes it as walking on blisters . Has tried both pregabalin and gabapentin without significant symptom improvement - self discontinued gabapentin. States he saw his PT who suggested underlying vascular issue. On exam of the bilateral lower extremities, there is no significant discoloration or ulcer formation. There is diffuse skin changes involving the entire surface area of the bilateral lower extremities this is likely due to age-related changes/sun exposure. There is mild decreased sensation on the plantar aspects of bilateral feet. DP pulses 3+ and equal bilaterally. Will order baseline labs with added B12 and folate. Plan to proceed with bilateral ABIs. Consider vascular surgery referral pending SYDNIE results. #Insomnia: Patient taking trazodone 100 mg nightly as needed. #HTN: Follows with program clerk Dr. Gary Crain in [place], [place] - due to f/u 2025. BP stable in office at 128/82. Continue carvedilol 12.5 mg twice daily and HCTZ 25 mg once daily. #HLD: Continue alternating rosuvastatin 20 mg and 10 mg every other day. Lipid panel ordered. #GERD: Continue omeprazole 20 mg once daily. Patient seen and examined. Comprehensive discussion was done on the followin. Discussed the importance of a diet rich in fruit, vegetables, legumes and healthy fats. Patient advised to avoid processed food and carbohydrates, added sugars, and saturated/trans fats. When possible, prepare your own meals and avoid fast food. Read nutrition labels - -void ingredients including high fructose corn syrup and preservatives. Be contentious of daily calorie intake and weight. 2. Discussed the importance of regular physical activity. Recommended a goal 6-10k steps or 30 minutes of walking per day. Discussed the benefit of weight-bearing exercise and strength training with proper body mechanics/safety precautions. Other activities including cycling, hiking, etc. are recommended and encouraged. Patient advised to seek medical attention for any SOB, chest pain, muscle or joint pain associated with exercise. 3. Discussed risks and benefits of age-appropriate screening guidelines including but not limited to colonoscopy (UTD 2020) and PSA (ordered). 4. Discussed safe driving, utilization of seat belts, and the importance of refraining from smartphone while driving. 5. Age-appropriate immunizations were discussed including but not limited to Shingles vaccine (UTD 02/25/2023), pneumonia vaccine (UTD 10/08/2020), RSV vaccine (UTD 06/21/2024), Tdap vaccine (recommending he update), etc. All questions answered to the patient's satisfaction. Patient demonstrates understanding of diagnosis and treatments discussed. Follow-up in 6-8 weeks, sooner should any questions/concerns arise. Case discussed with collaborating physician Enoch Ying who has reviewed the assessment/plan. Chart, medications, labs, and vital signs reviewed. Dictation completed with the use of [employer] voice recognition software, prone to medical misidentifications and grammatical errors. All errors are unintentional. Although the practitioner does try to identify and correct errors, some may be present. Please do not hesitate to contact the practitioner for clarification. Total time spent was 45 minutes with greater than 50% spent on counseling and coordinating care 12/23/2024 Essential hypertension (ICD-10 - I10) Patricio is a 69-year-old male with a PMH of chronic pain, insomnia, HTN, HLD, GERD that presents for follow-up visit. #Chronic pain: Patient reports chronic low back, knee, and ankle pain. States pain is exacerbated with physical activity such as yard work or golfing. Takes Percocet 5/325 mg as needed, Last filled in October. Refill provided today. Proper use and side effects including but not limited to respiratory suppression, dizziness, sedation. He communicates verbal understanding. #Neuropathy: Patient started on pregabalin by orthopedic provider. Initially started on pregabalin 75 mg twice daily. Dose was then increased to 150 mg twice daily at which time the patient experienced dizziness. Dose was then decreased with goal of tapering off. Patient has successfully discontinued medication with resolution of dizziness. Denies current dizziness, gait instability, or difficulty walking. Continues to experience neuropathy of bilateral lower extremities. Unchanged since time of last visit. Plan to initiate treatment with gabapentin. Plan for 100 mg nightly x 1 week, if tolerated can increase to 100 mg twice daily. Reviewed proper use and side effects of medication including dizziness, fatigue, somnolence. Patient demonstrates understanding of above plan. #Insomnia: Patient taking trazodone 100 mg nightly as needed. Attempted to decrease dose to 50 mg as needed without significant effect. #HTN: BP stable in office at 128/50. Patient taking carvedilol 12.5 mg twice daily and HCTZ 25 mg once daily. Follows with program clerk Dr. Gary Crain in [place], [place] - seen recently. Records requested for review. #HLD: Patient states regimen was recently changed. Alternating rosuvastatin 20 mg and 10 mg every other day. #GERD: Continue omeprazole 20 mg once daily. All questions answered to the patient's satisfaction. Patient demonstrates understanding of diagnosis and treatments discussed. Follow-up in 6-8 weeks, sooner should any questions/concerns arise. Case discussed with collaborating physician Enoch Ying who has reviewed the assessment/plan. Chart, medications, labs, and vital signs reviewed. Dictation completed with the use of [employer] voice recognition software, prone to medical misidentifications and grammatical errors. All errors are unintentional. Although the practitioner does try to identify and correct errors, some may be present. Please do not hesitate to contact the practitioner for clarification. 03/30/2025 Neuropathic pain of both feet (ICD-10 - G57.93) 05/14/2025 Primary insomnia (ICD-10 - F51.01) Patricio is a 69-year-old male with a PMH of chronic pain, insomnia, HTN, HLD, GERD that presents for follow-up visit. #Labs: Baseline laboratory evaluation including CBC, CMP, lipid panel, hemoglobin A1c, TSH, and vitamin D drawn 05/02/2025, reviewed today. All labs without acute concerns. #Chronic pain: Patient reports chronic low back, knee, and ankle pain. States pain is exacerbated with physical activity such as yard work or golfing. Currently taking tramadol 50 mg once to twice daily as needed for pain, feels this helps sensation/pain in bilateral lower extremities. Refill provided. Reviewed risks for respiratory suppression, dizziness, sedation, and even with opioid use, patient communicates verbal understanding. #Neuropathy: Patient reports sensation of bilateral foot discomfort, describes it as walking on blisters . Patient saw [facility] 10/10/2024 for this complaint who performed bilateral foot exams which were without acute concerns. Has tried pregabalin to little symptom improvement. Bilateral ABIs within normal limits. Comprehensive labs without evidence of T2DM or B12/folate deficiency. Discussed options for continued workup including nerve conduction studies, neurology referral, vascular referral, etc. Plan to proceed with nerve conduction studies of bilateral lower extremities. Will also attempt to reinitiate treatment with gabapentin 100 mg. Patient will take 100 mg nightly, if tolerated may increase to up to 3 times daily as needed. Reviewed proper use/SE. #Insomnia: Patient taking trazodone 100 mg nightly as needed. #HTN: Follows with program clerk Dr. Gary Crain in [place], [place] - due to f/u 2025. BP stable in office at 128/82. Continue carvedilol 12.5 mg twice daily and HCTZ 25 mg once daily. #HLD: Continue alternating rosuvastatin 20 mg and 10 mg every other day. #GERD: Continue omeprazole 20 mg once daily. All questions answered to the patient's satisfaction. Patient demonstrates understanding of diagnosis and treatments discussed. Follow-up in 6-8 weeks, sooner should any questions/concerns arise. Case discussed with collaborating physician Enoch Ying who has reviewed the assessment/plan. Chart, medications, labs, and vital signs reviewed. Dictation completed with the use of [employer] voice recognition software, prone to medical misidentifications and grammatical errors. All errors are unintentional. Although the practitioner does try to identify and correct errors, some may be present. Please do not hesitate to contact the practitioner for clarification. 07/14/2025 Encounter for examination of blood pressure without abnormal findings (ICD-10 - Z01.30) Zach is a pleasant 70-year-old male with a past medical history of essential hypertension, primary insomnia, pain, hyperlipidemia, GERD who presents to the office today for an urgent visit. #Open wound: Patient states that he scraped his anterior surface of his right lower extremity on a wooden table that he was folding yesterday night. The wound is open, however nonbleeding. The wound was cleaned with hydrogen peroxide, a nonstick pad was placed and an Kevin bandage was wrapped for security. 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 Doxy 100mg BID x 5 days. Patient educated on signs and symptoms of worsening infection that needs attention such as fevers, chills, surrounding erythema, discharge from the wound. Patient given extra supplies with nonstick adhesive pad and Kevin bandage. He is to change the wound daily until there is scab formation. Patient understands. All questions have been answered to patient's satisfaction. Patient verbalized understanding of diagnosis and treatments explained. Advised to call sooner prior to next visit it any questions/concerns arise. Case discussed with Enoch SINGH who reviewed the assessment and plan. Chart, medications, labs, vital signs reviewed. Dictation was accomplished with the use of [employer] voice recognition software, which is prone to medical misidentifications and grammatical errors. This are unintentional and the practitioner does try to identify and correct these, but some could still be present. Please do not hesitate to contact practitioner for clarification. 07/21/2025 Encounter for examination of blood pressure without abnormal findings (ICD-10 - Z01.30) Zach is a 70-year-old male who presents to [...] it was best to send patient to [place] emergency department... I did call [facility] with an expect as the patient needs [...] Dictation was accomplished with the use of [employer] voice recognition software, which is prone to medical misidentifications and grammatical errors. This are unintentional and the practitioner does try to identify and correct these, but some could still be present. Please do not hesitate to contact practitioner for clarification. 02/17/2025 Essential hypertension (ICD-10 - I10) Patricio is a 69-year-old male with a PMH of chronic pain, insomnia, HTN, HLD, GERD that presents for [facility]. Complete paperwork has been reviewed/updated and has been filed and scanned. Cognition assessed and within reasonable limits. Fall risk assessed - and negative. Cautioned opioid use and risk for falls. #Labs: Baseline laboratory evaluation including CBC, CMP, lipid panel, hemoglobin A1c, TSH, PSA, UA, and vitamin D ordered to be evaluated at time of CPE. #Chronic pain: Patient reports chronic low back, knee, and ankle pain. States pain is exacerbated with physical activity such as yard work or golfing. Takes Percocet 5/325 mg as needed although dislikes the way this medication makes him feel. Previously took tramadol and is interested in transitioning back to this due to better tolerability. Patient may take tramadol as alternative. Discussed the importance of not taking tramadol and Percocet together due to risk of respiratory suppression, dizziness, sedation, and even . Patient communicates verbal understanding. #Neuropathy: Patient reports sensation of bilateral foot discomfort, describes it as walking on blisters . Has tried both pregabalin and gabapentin without significant symptom improvement - self discontinued gabapentin. States he saw his PT who suggested underlying vascular issue. On exam of the bilateral lower extremities, there is no significant discoloration or ulcer formation. There is diffuse skin changes involving the entire surface area of the bilateral lower extremities this is likely due to age-related changes/sun exposure. There is mild decreased sensation on the plantar aspects of bilateral feet. DP pulses 3+ and equal bilaterally. Will order baseline labs with added B12 and folate. Plan to proceed with bilateral ABIs. Consider vascular surgery referral pending SYDNIE results. #Insomnia: Patient taking trazodone 100 mg nightly as needed. #HTN: Follows with program clerk Dr. Gary Crain in [place], [place] - due to f/u 2025. BP stable in office at 128/82. Continue carvedilol 12.5 mg twice daily and HCTZ 25 mg once daily. #HLD: Continue alternating rosuvastatin 20 mg and 10 mg every other day. Lipid panel ordered. #GERD: Continue omeprazole 20 mg once daily. Patient seen and examined. Comprehensive discussion was done on the followin. Discussed the importance of a diet rich in fruit, vegetables, legumes and healthy fats. Patient advised to avoid processed food and carbohydrates, added sugars, and saturated/trans fats. When possible, prepare your own meals and avoid fast food. Read nutrition labels - -void ingredients including high fructose corn syrup and preservatives. Be contentious of daily calorie intake and weight. 2. Discussed the importance of regular physical activity. Recommended a goal 6-10k steps or 30 minutes of walking per day. Discussed the benefit of weight-bearing exercise and strength training with proper body mechanics/safety precautions. Other activities including cycling, hiking, etc. are recommended and encouraged. Patient advised to seek medical attention for any SOB, chest pain, muscle or joint pain associated with exercise. 3. Discussed risks and benefits of age-appropriate screening guidelines including but not limited to colonoscopy (UTD 2020) and PSA (ordered). 4. Discussed safe driving, utilization of seat belts, and the importance of refraining from smartphone while driving. 5. Age-appropriate immunizations were discussed including but not limited to Shingles vaccine (UTD 02/25/2023), pneumonia vaccine (UTD 10/08/2020), RSV vaccine (UTD 06/21/2024), Tdap vaccine (recommending he update), etc. All questions answered to the patient's satisfaction. Patient demonstrates understanding of diagnosis and treatments discussed. Follow-up in 6-8 weeks, sooner should any questions/concerns arise. Case discussed with collaborating physician Enoch Ying who has reviewed the assessment/plan. Chart, medications, labs, and vital signs reviewed. Dictation completed with the use of [employer] voice recognition software, prone to medical misidentifications and grammatical errors. All errors are unintentional. Although the practitioner does try to identify and correct errors, some may be present. Please do not hesitate to contact the practitioner for clarification. Total time spent was 45 minutes with greater than 50% spent on counseling and coordinating care 05/14/2025 Essential hypertension (ICD-10 - I10) Patricio is a 69-year-old male with a PMH of chronic pain, insomnia, HTN, HLD, GERD that presents for follow-up visit. #Labs: Baseline laboratory evaluation including CBC, CMP, lipid panel, hemoglobin A1c, TSH, and vitamin D drawn 05/02/2025, reviewed today. All labs without acute concerns. #Chronic pain: Patient reports chronic low back, knee, and ankle pain. States pain is exacerbated with physical activity such as yard work or golfing. Currently taking tramadol 50 mg once to twice daily as needed for pain, feels this helps sensation/pain in bilateral lower extremities. Refill provided. Reviewed risks for respiratory suppression, dizziness, sedation, and even with opioid use, patient communicates verbal understanding. #Neuropathy: Patient reports sensation of bilateral foot discomfort, describes it as walking on blisters . Patient saw [facility] 10/10/2024 for this complaint who performed bilateral foot exams which were without acute concerns. Has tried pregabalin to little symptom improvement. Bilateral ABIs within normal limits. Comprehensive labs without evidence of T2DM or B12/folate deficiency. Discussed options for continued workup including nerve conduction studies, neurology referral, vascular referral, etc. Plan to proceed with nerve conduction studies of bilateral lower extremities. Will also attempt to reinitiate treatment with gabapentin 100 mg. Patient will take 100 mg nightly, if tolerated may increase to up to 3 times daily as needed. Reviewed proper use/SE. #Insomnia: Patient taking trazodone 100 mg nightly as needed. #HTN: Follows with program clerk Dr. Gary Crain in [place], [place] - due to f/u 2025. BP stable in office at 128/82. Continue carvedilol 12.5 mg twice daily and HCTZ 25 mg once daily. #HLD: Continue alternating rosuvastatin 20 mg and 10 mg every other day. #GERD: Continue omeprazole 20 mg once daily. All questions answered to the patient's satisfaction. Patient demonstrates understanding of diagnosis and treatments discussed. Follow-up in 6-8 weeks, sooner should any questions/concerns arise. Case discussed with collaborating physician Enoch Ying who has reviewed the assessment/plan. Chart, medications, labs, and vital signs reviewed. Dictation completed with the use of [employer] voice recognition software, prone to medical misidentifications and grammatical errors. All errors are unintentional. Although the practitioner does try to identify and correct errors, some may be present. Please do not hesitate to contact the practitioner for clarification. 12/23/2024 Other hyperlipidemia (ICD-10 - E78.49) Patricio is a 69-year-old male with a PMH of chronic pain, insomnia, HTN, HLD, GERD that presents for follow-up visit. #Chronic pain: Patient reports chronic low back, knee, and ankle pain. States pain is exacerbated with physical activity such as yard work or golfing. Takes Percocet 5/325 mg as needed, Last filled in October. Refill provided today. Proper use and side effects including but not limited to respiratory suppression, dizziness, sedation. He communicates verbal understanding. #Neuropathy: Patient started on pregabalin by orthopedic provider. Initially started on pregabalin 75 mg twice daily. Dose was then increased to 150 mg twice daily at which time the patient experienced dizziness. Dose was then decreased with goal of tapering off. Patient has successfully discontinued medication with resolution of dizziness. Denies current dizziness, gait instability, or difficulty walking. Continues to experience neuropathy of bilateral lower extremities. Unchanged since time of last visit. Plan to initiate treatment with gabapentin. Plan for 100 mg nightly x 1 week, if tolerated can increase to 100 mg twice daily. Reviewed proper use and side effects of medication including dizziness, fatigue, somnolence. Patient demonstrates understanding of above plan. #Insomnia: Patient taking trazodone 100 mg nightly as needed. Attempted to decrease dose to 50 mg as needed without significant effect. #HTN: BP stable in office at 128/50. Patient taking carvedilol 12.5 mg twice daily and HCTZ 25 mg once daily. Follows with program clerk Dr. Gary Crain in [place], [place] - seen recently. Records requested for review. #HLD: Patient states regimen was recently changed. Alternating rosuvastatin 20 mg and 10 mg every other day. #GERD: Continue omeprazole 20 mg once daily. All questions answered to the patient's satisfaction. Patient demonstrates understanding of diagnosis and treatments discussed. Follow-up in 6-8 weeks, sooner should any questions/concerns arise. Case discussed with collaborating physician Enoch Ying who has reviewed the assessment/plan. Chart, medications, labs, and vital signs reviewed. Dictation completed with the use of [employer] voice recognition software, prone to medical misidentifications and grammatical errors. All errors are unintentional. Although the practitioner does try to identify and correct errors, some may be present. Please do not hesitate to contact the practitioner for clarification. 09/09/2024 Other hyperlipidemia (ICD-10 - E78.49) Patricio is a 69-year-old male with a PMH of chronic pain, insomnia, HTN, HLD, GERD that presents for follow-up visit. #Chronic pain. Patient reports chronic low back, knee, and ankle pain. States pain is exacerbated with physical activity such as yard work or golfing. Takes Percocet 5/325 mg as needed, denies regular use. Additionally takes tramadol 50 mg twice daily as needed. Refills of Percocet provided today. Patient reports recent worsening of bilateral foot pain. Describes the pain as walking on blisters . Patient due to see orthopedics 09/16/2024 as he believes there is underlying neuropathy likely from his previous surgical procedures. On exam there is diminished sensation of bilateral feet, R>L. DP pulses 2+ bilaterally. Equal tone bilaterally. No visible wounds/lesions. Patient is encouraged to have orthopedic office fax us their note for continuity of care. Consider nightly gabapentin pending orthopedic evaluation. #Insomnia: Patient takes trazodone 100 mg at bedtime nightly. Interested in decreasing dose. Rx for trazodone 50 mg at bedtime sent to pharmacy. Reviewed proper use/side effects including but not limited to drowsiness, dry mouth, dizziness, headaches, etc.. Patient understands he may take 1 to 2 tablets nightly as needed. #HTN: BP controlled in office at 124/78. Patient interested in discontinuing HCTZ 25 mg once daily as it makes him urinate frequently. Denies additional urinary symptoms. Plan to request records from program clerk Dr. Gary Crain in [place], [place] prior to discontinuing this medication. Patient is agreeable. #HLD: Continue rosuvastatin 20 mg daily. All questions answered to the patient's satisfaction. Patient demonstrates understanding of diagnosis and treatments discussed. Follow-up in 4 months, sooner should any questions/concerns arise. Case discussed with collaborating physician Enoch Ying who has reviewed the assessment/plan. Chart, medications, labs, and vital signs reviewed. Dictation completed with the use of [employer] voice recognition software, prone to medical misidentifications and grammatical errors. All errors are unintentional. Although the practitioner does try to identify and correct errors, some may be present. Please do not hesitate to contact the practitioner for clarification. 09/09/2024 GERD without esophagitis (ICD-10 - K21.9) Patricio is a 69-year-old male with a PMH of chronic pain, insomnia, HTN, HLD, GERD that presents for follow-up visit. #Chronic pain. Patient reports chronic low back, knee, and ankle pain. States pain is exacerbated with physical activity such as yard work or golfing. Takes Percocet 5/325 mg as needed, denies regular use. Additionally takes tramadol 50 mg twice daily as needed. Refills of Percocet provided today. Patient reports recent worsening of bilateral foot pain. Describes the pain as walking on blisters . Patient due to see orthopedics 09/16/2024 as he believes there is underlying neuropathy likely from his previous surgical procedures. On exam there is diminished sensation of bilateral feet, R>L. DP pulses 2+ bilaterally. Equal tone bilaterally. No visible wounds/lesions. Patient is encouraged to have orthopedic office fax us their note for continuity of care. Consider nightly gabapentin pending orthopedic evaluation. #Insomnia: Patient takes trazodone 100 mg at bedtime nightly. Interested in decreasing dose. Rx for trazodone 50 mg at bedtime sent to pharmacy. Reviewed proper use/side effects including but not limited to drowsiness, dry mouth, dizziness, headaches, etc.. Patient understands he may take 1 to 2 tablets nightly as needed. #HTN: BP controlled in office at 124/78. Patient interested in discontinuing HCTZ 25 mg once daily as it makes him urinate frequently. Denies additional urinary symptoms. Plan to request records from program clerk Dr. Gary Crain in [place], [place] prior to discontinuing this medication. Patient is agreeable. #HLD: Continue rosuvastatin 20 mg daily. All questions answered to the patient's satisfaction. Patient demonstrates understanding of diagnosis and treatments discussed. Follow-up in 4 months, sooner should any questions/concerns arise. Case discussed with collaborating physician Enoch Ying who has reviewed the assessment/plan. Chart, medications, labs, and vital signs reviewed. Dictation completed with the use of [employer] voice recognition software, prone to medical misidentifications and grammatical errors. All errors are unintentional. Although the practitioner does try to identify and correct errors, some may be present. Please do not hesitate to contact the practitioner for clarification. 12/23/2024 GERD without esophagitis (ICD-10 - K21.9) Patricio is a 69-year-old male with a PMH of chronic pain, insomnia, HTN, HLD, GERD that presents for follow-up visit. #Chronic pain: Patient reports chronic low back, knee, and ankle pain. States pain is exacerbated with physical activity such as yard work or golfing. Takes Percocet 5/325 mg as needed, Last filled in October. Refill provided today. Proper use and side effects including but not limited to respiratory suppression, dizziness, sedation. He communicates verbal understanding. #Neuropathy: Patient started on pregabalin by orthopedic provider. Initially started on pregabalin 75 mg twice daily. Dose was then increased to 150 mg twice daily at which time the patient experienced dizziness. Dose was then decreased with goal of tapering off. Patient has successfully discontinued medication with resolution of dizziness. Denies current dizziness, gait instability, or difficulty walking. Continues to experience neuropathy of bilateral lower extremities. Unchanged since time of last visit. Plan to initiate treatment with gabapentin. Plan for 100 mg nightly x 1 week, if tolerated can increase to 100 mg twice daily. Reviewed proper use and side effects of medication including dizziness, fatigue, somnolence. Patient demonstrates understanding of above plan. #Insomnia: Patient taking trazodone 100 mg nightly as needed. Attempted to decrease dose to 50 mg as needed without significant effect. #HTN: BP stable in office at 128/50. Patient taking carvedilol 12.5 mg twice daily and HCTZ 25 mg once daily. Follows with program clerk Dr. Gary Crain in [place], [place] - seen recently. Records requested for review. #HLD: Patient states regimen was recently changed. Alternating rosuvastatin 20 mg and 10 mg every other day. #GERD: Continue omeprazole 20 mg once daily. All questions answered to the patient's satisfaction. Patient demonstrates understanding of diagnosis and treatments discussed. Follow-up in 6-8 weeks, sooner should any questions/concerns arise. Case discussed with collaborating physician Enoch Ying who has reviewed the assessment/plan. Chart, medications, labs, and vital signs reviewed. Dictation completed with the use of [employer] voice recognition software, prone to medical misidentifications and grammatical errors. All errors are unintentional. Although the practitioner does try to identify and correct errors, some may be present. Please do not hesitate to contact the practitioner for clarification. 02/17/2025 Other hyperlipidemia (ICD-10 - E78.49) Patricio is a 69-year-old male with a PMH of chronic pain, insomnia, HTN, HLD, GERD that presents for MWV. Complete paperwork has been reviewed/updated and has been filed and scanned. Cognition assessed and within reasonable limits. Fall risk assessed - and negative. Cautioned opioid use and risk for falls. #Labs: Baseline laboratory evaluation including CBC, CMP, lipid panel, hemoglobin A1c, TSH, PSA, UA, and vitamin D ordered to be evaluated at time of CPE. #Chronic pain: Patient reports chronic low back, knee, and ankle pain. States pain is exacerbated with physical activity such as yard work or golfing. Takes Percocet 5/325 mg as needed although dislikes the way this medication makes him feel. Previously took tramadol and is interested in transitioning back to this due to better tolerability. Patient may take tramadol as alternative. Discussed the importance of not taking tramadol and Percocet together due to risk of respiratory suppression, dizziness, sedation, and even . Patient communicates verbal understanding. #Neuropathy: Patient reports sensation of bilateral foot discomfort, describes it as walking on blisters . Has tried both pregabalin and gabapentin without significant symptom improvement - self discontinued gabapentin. States he saw his PT who suggested underlying vascular issue. On exam of the bilateral lower extremities, there is no significant discoloration or ulcer formation. There is diffuse skin changes involving the entire surface area of the bilateral lower extremities this is likely due to age-related changes/sun exposure. There is mild decreased sensation on the plantar aspects of bilateral feet. DP pulses 3+ and equal bilaterally. Will order baseline labs with added B12 and folate. Plan to proceed with bilateral ABIs. Consider vascular surgery referral pending SYDNIE results. #Insomnia: Patient taking trazodone 100 mg nightly as needed. #HTN: Follows with program clerk Dr. Gary Crain in [place], [place] - due to f/u 2025. BP stable in office at 128/82. Continue carvedilol 12.5 mg twice daily and HCTZ 25 mg once daily. #HLD: Continue alternating rosuvastatin 20 mg and 10 mg every other day. Lipid panel ordered. #GERD: Continue omeprazole 20 mg once daily. Patient seen and examined. Comprehensive discussion was done on the followin. Discussed the importance of a diet rich in fruit, vegetables, legumes and healthy fats. Patient advised to avoid processed food and carbohydrates, added sugars, and saturated/trans fats. When possible, prepare your own meals and avoid fast food. Read nutrition labels - -void ingredients including high fructose corn syrup and preservatives. Be contentious of daily calorie intake and weight. 2. Discussed the importance of regular physical activity. Recommended a goal 6-10k steps or 30 minutes of walking per day. Discussed the benefit of weight-bearing exercise and strength training with proper body mechanics/safety precautions. Other activities including cycling, hiking, etc. are recommended and encouraged. Patient advised to seek medical attention for any SOB, chest pain, muscle or joint pain associated with exercise. 3. Discussed risks and benefits of age-appropriate screening guidelines including but not limited to colonoscopy (UTD 2020) and PSA (ordered). 4. Discussed safe driving, utilization of seat belts, and the importance of refraining from smartphone while driving. 5. Age-appropriate immunizations were discussed including but not limited to Shingles vaccine (UTD 02/25/2023), pneumonia vaccine (UTD 10/08/2020), RSV vaccine (UTD 06/21/2024), Tdap vaccine (recommending he update), etc. All questions answered to the patient's satisfaction. Patient demonstrates understanding of diagnosis and treatments discussed. Follow-up in 6-8 weeks, sooner should any questions/concerns arise. Case discussed with collaborating physician Enoch Ying who has reviewed the assessment/plan. Chart, medications, labs, and vital signs reviewed. Dictation completed with the use of [employer] voice recognition software, prone to medical misidentifications and grammatical errors. All errors are unintentional. Although the practitioner does try to identify and correct errors, some may be present. Please do not hesitate to contact the practitioner for clarification. Total time spent was 45 minutes with greater than 50% spent on counseling and coordinating care 05/14/2025 Other hyperlipidemia (ICD-10 - E78.49) Patricio is a 69-year-old male with a PMH of chronic pain, insomnia, HTN, HLD, GERD that presents for follow-up visit. #Labs: Baseline laboratory evaluation including CBC, CMP, lipid panel, hemoglobin A1c, TSH, and vitamin D drawn 05/02/2025, reviewed today. All labs without acute concerns. #Chronic pain: Patient reports chronic low back, knee, and ankle pain. States pain is exacerbated with physical activity such as yard work or golfing. Currently taking tramadol 50 mg once to twice daily as needed for pain, feels this helps sensation/pain in bilateral lower extremities. Refill provided. Reviewed risks for respiratory suppression, dizziness, sedation, and even with opioid use, patient communicates verbal understanding. #Neuropathy: Patient reports sensation of bilateral foot discomfort, describes it as walking on blisters . Patient saw [facility] 10/10/2024 for this complaint who performed bilateral foot exams which were without acute concerns. Has tried pregabalin to little symptom improvement. Bilateral ABIs within normal limits. Comprehensive labs without evidence of T2DM or B12/folate deficiency. Discussed options for continued workup including nerve conduction studies, neurology referral, vascular referral, etc. Plan to proceed with nerve conduction studies of bilateral lower extremities. Will also attempt to reinitiate treatment with gabapentin 100 mg. Patient will take 100 mg nightly, if tolerated may increase to up to 3 times daily as needed. Reviewed proper use/SE. #Insomnia: Patient taking trazodone 100 mg nightly as needed. #HTN: Follows with program clerk Dr. Gary Crain in [place], [place] - due to f/u 2025. BP stable in office at 128/82. Continue carvedilol 12.5 mg twice daily and HCTZ 25 mg once daily. #HLD: Continue alternating rosuvastatin 20 mg and 10 mg every other day. #GERD: Continue omeprazole 20 mg once daily. All questions answered to the patient's satisfaction. Patient demonstrates understanding of diagnosis and treatments discussed. Follow-up in 6-8 weeks, sooner should any questions/concerns arise. Case discussed with collaborating physician Enoch Ying who has reviewed the assessment/plan. Chart, medications, labs, and vital signs reviewed. Dictation completed with the use of [employer] voice recognition software, prone to medical misidentifications and grammatical errors. All errors are unintentional. Although the practitioner does try to identify and correct errors, some may be present. Please do not hesitate to contact the practitioner for clarification. 05/14/2025 GERD without esophagitis (ICD-10 - K21.9) Patricio is a 69-year-old male with a PMH of chronic pain, insomnia, HTN, HLD, GERD that presents for follow-up visit. #Labs: Baseline laboratory evaluation including CBC, CMP, lipid panel, hemoglobin A1c, TSH, and vitamin D drawn 05/02/2025, reviewed today. All labs without acute concerns. #Chronic pain: Patient reports chronic low back, knee, and ankle pain. States pain is exacerbated with physical activity such as yard work or golfing. Currently taking tramadol 50 mg once to twice daily as needed for pain, feels this helps sensation/pain in bilateral lower extremities. Refill provided. Reviewed risks for respiratory suppression, dizziness, sedation, and even with opioid use, patient communicates verbal understanding. #Neuropathy: Patient reports sensation of bilateral foot discomfort, describes it as walking on blisters . Patient saw [facility] 10/10/2024 for this complaint who performed bilateral foot exams which were without acute concerns. Has tried pregabalin to little symptom improvement. Bilateral ABIs within normal limits. Comprehensive labs without evidence of T2DM or B12/folate deficiency. Discussed options for continued workup including nerve conduction studies, neurology referral, vascular referral, etc. Plan to proceed with nerve conduction studies of bilateral lower extremities. Will also attempt to reinitiate treatment with gabapentin 100 mg. Patient will take 100 mg nightly, if tolerated may increase to up to 3 times daily as needed. Reviewed proper use/SE. #Insomnia: Patient taking trazodone 100 mg nightly as needed. #HTN: Follows with program clerk Dr. Gary Crain in [place], [place] - due to f/u 2025. BP stable in office at 128/82. Continue carvedilol 12.5 mg twice daily and HCTZ 25 mg once daily. #HLD: Continue alternating rosuvastatin 20 mg and 10 mg every other day. #GERD: Continue omeprazole 20 mg once daily. All questions answered to the patient's satisfaction. Patient demonstrates understanding of diagnosis and treatments discussed. Follow-up in 6-8 weeks, sooner should any questions/concerns arise. Case discussed with collaborating physician Enoch Ying who has reviewed the assessment/plan. Chart, medications, labs, and vital signs reviewed. Dictation completed with the use of Top[employer]oder voice recognition software, prone to medical misidentifications and grammatical errors. All errors are unintentional. Although the practitioner does try to identify and correct errors, some may be present. Please do not hesitate to contact the practitioner for clarification. 02/17/2025 GERD without esophagitis (ICD-10 - K21.9) Patricio is a 69-year-old male with a PMH of chronic pain, insomnia, HTN, HLD, GERD that presents for MWV. Complete paperwork has been reviewed/updated and has been filed and scanned. Cognition assessed and within reasonable limits. Fall risk assessed - and negative. Cautioned opioid use and risk for falls. #Labs: Baseline laboratory evaluation including CBC, CMP, lipid panel, hemoglobin A1c, TSH, PSA, UA, and vitamin D ordered to be evaluated at time of CPE. #Chronic pain: Patient reports chronic low back, knee, and ankle pain. States pain is exacerbated with physical activity such as yard work or golfing. Takes Percocet 5/325 mg as needed although dislikes the way this medication makes him feel. Previously took tramadol and is interested in transitioning back to this due to better tolerability. Patient may take tramadol as alternative. Discussed the importance of not taking tramadol and Percocet together due to risk of respiratory suppression, dizziness, sedation, and even . Patient communicates verbal understanding. #Neuropathy: Patient reports sensation of bilateral foot discomfort, describes it as walking on blisters . Has tried both pregabalin and gabapentin without significant symptom improvement - self discontinued gabapentin. States he saw his PT who suggested underlying vascular issue. On exam of the bilateral lower extremities, there is no significant discoloration or ulcer formation. There is diffuse skin changes involving the entire surface area of the bilateral lower extremities this is likely due to age-related changes/sun exposure. There is mild decreased sensation on the plantar aspects of bilateral feet. DP pulses 3+ and equal bilaterally. Will order baseline labs with added B12 and folate. Plan to proceed with bilateral ABIs. Consider vascular surgery referral pending SYDNIE results. #Insomnia: Patient taking trazodone 100 mg nightly as needed. #HTN: Follows with program clerk Dr. Gary Crain in [place], [place] - due to f/u 2025. BP stable in office at 128/82. Continue carvedilol 12.5 mg twice daily and HCTZ 25 mg once daily. #HLD: Continue alternating rosuvastatin 20 mg and 10 mg every other day. Lipid panel ordered. #GERD: Continue omeprazole 20 mg once daily. Patient seen and examined. Comprehensive discussion was done on the followin. Discussed the importance of a diet rich in fruit, vegetables, legumes and healthy fats. Patient advised to avoid processed food and carbohydrates, added sugars, and saturated/trans fats. When possible, prepare your own meals and avoid fast food. Read nutrition labels - -void ingredients including high fructose corn syrup and preservatives. Be contentious of daily calorie intake and weight. 2. Discussed the importance of regular physical activity. Recommended a goal 6-10k steps or 30 minutes of walking per day. Discussed the benefit of weight-bearing exercise and strength training with proper body mechanics/safety precautions. Other activities including cycling, hiking, etc. are recommended and encouraged. Patient advised to seek medical attention for any SOB, chest pain, muscle or joint pain associated with exercise. 3. Discussed risks and benefits of age-appropriate screening guidelines including but not limited to colonoscopy (UTD 2020) and PSA (ordered). 4. Discussed safe driving, utilization of seat belts, and the importance of refraining from smartphone while driving. 5. Age-appropriate immunizations were discussed including but not limited to Shingles vaccine (UTD 02/25/2023), pneumonia vaccine (UTD 10/08/2020), RSV vaccine (UTD 06/21/2024), Tdap vaccine (recommending he update), etc. All questions answered to the patient's satisfaction. Patient demonstrates understanding of diagnosis and treatments discussed. Follow-up in 6-8 weeks, sooner should any questions/concerns arise. Case discussed with collaborating physician Enoch Ying who has reviewed the assessment/plan. Chart, medications, labs, and vital signs reviewed. Dictation completed with the use of [employer] voice recognition software, prone to medical misidentifications and grammatical errors. All errors are unintentional. Although the practitioner does try to identify and correct errors, some may be present. Please do not hesitate to contact the practitioner for clarification. Total time spent was 45 minutes with greater than 50% spent on counseling and coordinating care 02/17/2025 Depression screen (ICD-10 - Z13.31) Patricio is a 69-year-old male with a PMH of chronic pain, insomnia, HTN, HLD, GERD that presents for MWV. Complete paperwork has been reviewed/updated and has been filed and scanned. Cognition assessed and within reasonable limits. Fall risk assessed - and negative. Cautioned opioid use and risk for falls. #Labs: Baseline laboratory evaluation including CBC, CMP, lipid panel, hemoglobin A1c, TSH, PSA, UA, and vitamin D ordered to be evaluated at time of CPE. #Chronic pain: Patient reports chronic low back, knee, and ankle pain. States pain is exacerbated with physical activity such as yard work or golfing. Takes Percocet 5/325 mg as needed although dislikes the way this medication makes him feel. Previously took tramadol and is interested in transitioning back to this due to better tolerability. Patient may take tramadol as alternative. Discussed the importance of not taking tramadol and Percocet together due to risk of respiratory suppression, dizziness, sedation, and even . Patient communicates verbal understanding. #Neuropathy: Patient reports sensation of bilateral foot discomfort, describes it as walking on blisters . Has tried both pregabalin and gabapentin without significant symptom improvement - self discontinued gabapentin. States he saw his PT who suggested underlying vascular issue. On exam of the bilateral lower extremities, there is no significant discoloration or ulcer formation. There is diffuse skin changes involving the entire surface area of the bilateral lower extremities this is likely due to age-related changes/sun exposure. There is mild decreased sensation on the plantar aspects of bilateral feet. DP pulses 3+ and equal bilaterally. Will order baseline labs with added B12 and folate. Plan to proceed with bilateral ABIs. Consider vascular surgery referral pending SYDNIE results. #Insomnia: Patient taking trazodone 100 mg nightly as needed. #HTN: Follows with program clerk Dr. Gary Crain in [place], [place] - due to f/u 2025. BP stable in office at 128/82. Continue carvedilol 12.5 mg twice daily and HCTZ 25 mg once daily. #HLD: Continue alternating rosuvastatin 20 mg and 10 mg every other day. Lipid panel ordered. #GERD: Continue omeprazole 20 mg once daily. Patient seen and examined. Comprehensive discussion was done on the followin. Discussed the importance of a diet rich in fruit, vegetables, legumes and healthy fats. Patient advised to avoid processed food and carbohydrates, added sugars, and saturated/trans fats. When possible, prepare your own meals and avoid fast food. Read nutrition labels - -void ingredients including high fructose corn syrup and preservatives. Be contentious of daily calorie intake and weight. 2. Discussed the importance of regular physical activity. Recommended a goal 6-10k steps or 30 minutes of walking per day. Discussed the benefit of weight-bearing exercise and strength training with proper body mechanics/safety precautions. Other activities including cycling, hiking, etc. are recommended and encouraged. Patient advised to seek medical attention for any SOB, chest pain, muscle or joint pain associated with exercise. 3. Discussed risks and benefits of age-appropriate screening guidelines including but not limited to colonoscopy (UTD 2020) and PSA (ordered). 4. Discussed safe driving, utilization of seat belts, and the importance of refraining from smartphone while driving. 5. Age-appropriate immunizations were discussed including but not limited to Shingles vaccine (UTD 02/25/2023), pneumonia vaccine (UTD 10/08/2020), RSV vaccine (UTD 06/21/2024), Tdap vaccine (recommending he update), etc. All questions answered to the patient's satisfaction. Patient demonstrates understanding of diagnosis and treatments discussed. Follow-up in 6-8 weeks, sooner should any questions/concerns arise. Case discussed with collaborating physician Enoch Ying who has reviewed the assessment/plan. Chart, medications, labs, and vital signs reviewed. Dictation completed with the use of [employer] voice recognition software, prone to medical misidentifications and grammatical errors. All errors are unintentional. Although the practitioner does try to identify and correct errors, some may be present. Please do not hesitate to contact the practitioner for clarification. Total time spent was 45 minutes with greater than 50% spent on counseling and coordinating care 02/17/2025 Alcohol screening (ICD-10 - Z13.39) Patricio is a 69-year-old male with a PMH of chronic pain, insomnia, HTN, HLD, GERD that presents for MWV. Complete paperwork has been reviewed/updated and has been filed and scanned. Cognition assessed and within reasonable limits. Fall risk assessed - and negative. Cautioned opioid use and risk for falls. #Labs: Baseline laboratory evaluation including CBC, CMP, lipid panel, hemoglobin A1c, TSH, PSA, UA, and vitamin D ordered to be evaluated at time of CPE. #Chronic pain: Patient reports chronic low back, knee, and ankle pain. States pain is exacerbated with physical activity such as yard work or golfing. Takes Percocet 5/325 mg as needed although dislikes the way this medication makes him feel. Previously took tramadol and is interested in transitioning back to this due to better tolerability. Patient may take tramadol as alternative. Discussed the importance of not taking tramadol and Percocet together due to risk of respiratory suppression, dizziness, sedation, and even . Patient communicates verbal understanding. #Neuropathy: Patient reports sensation of bilateral foot discomfort, describes it as walking on blisters . Has tried both pregabalin and gabapentin without significant symptom improvement - self discontinued gabapentin. States he saw his PT who suggested underlying vascular issue. On exam of the bilateral lower extremities, there is no significant discoloration or ulcer formation. There is diffuse skin changes involving the entire surface area of the bilateral lower extremities this is likely due to age-related changes/sun exposure. There is mild decreased sensation on the plantar aspects of bilateral feet. DP pulses 3+ and equal bilaterally. Will order baseline labs with added B12 and folate. Plan to proceed with bilateral ABIs. Consider vascular surgery referral pending SYDNIE results. #Insomnia: Patient taking trazodone 100 mg nightly as needed. #HTN: Follows with program clerk Dr. Gary Crain in [place], [place] - due to f/u 2025. BP stable in office at 128/82. Continue carvedilol 12.5 mg twice daily and HCTZ 25 mg once daily. #HLD: Continue alternating rosuvastatin 20 mg and 10 mg every other day. Lipid panel ordered. #GERD: Continue omeprazole 20 mg once daily. Patient seen and examined. Comprehensive discussion was done on the followin. Discussed the importance of a diet rich in fruit, vegetables, legumes and healthy fats. Patient advised to avoid processed food and carbohydrates, added sugars, and saturated/trans fats. When possible, prepare your own meals and avoid fast food. Read nutrition labels - -void ingredients including high fructose corn syrup and preservatives. Be contentious of daily calorie intake and weight. 2. Discussed the importance of regular physical activity. Recommended a goal 6-10k steps or 30 minutes of walking per day. Discussed the benefit of weight-bearing exercise and strength training with proper body mechanics/safety precautions. Other activities including cycling, hiking, etc. are recommended and encouraged. Patient advised to seek medical attention for any SOB, chest pain, muscle or joint pain associated with exercise. 3. Discussed risks and benefits of age-appropriate screening guidelines including but not limited to colonoscopy (UTD 2020) and PSA (ordered). 4. Discussed safe driving, utilization of seat belts, and the importance of refraining from smartphone while driving. 5. Age-appropriate immunizations were discussed including but not limited to Shingles vaccine (UTD 02/25/2023), pneumonia vaccine (UTD 10/08/2020), RSV vaccine (UTD 06/21/2024), Tdap vaccine (recommending he update), etc. All questions answered to the patient's satisfaction. Patient demonstrates understanding of diagnosis and treatments discussed. Follow-up in 6-8 weeks, sooner should any questions/concerns arise. Case discussed with collaborating physician Enoch Ying who has reviewed the assessment/plan. Chart, medications, labs, and vital signs reviewed. Dictation completed with the use of TopCoder voice recognition software, prone to medical misidentifications and grammatical errors. All errors are unintentional. Although the practitioner does try to identify and correct errors, some may be present. Please do not hesitate to contact the practitioner for clarification. Total time spent was 45 minutes with greater than 50% spent on counseling and coordinating care Plan Of Treatment Pending Test Test Name Order Date SYDNIE 02/17/2025 Ultrasound : Kidneys and Bladder 024 Ultrasound : Ankle Brachial Indices 01/21 Ultrasound : Ankle Brachial Indices 06/2025 Ultrasound : Ankle Brachial Indices 01/21 CBC (COMPLETE BLOOD COUNT) 07/28/2021 COMPREHENSIVE METABOLIC PANEL 07/28/2021 CPK,TOTAL ONLY 04/08/2024 LIPID PANEL 02/17/2025 LIPID PANEL 07/28/2021 URINALYSIS W/REFLEX CULTURE 02/21/2024 VITAMIN B12 02/17/2025 UA WITH CULTURE IF INDICATED 02/17/2025 LIPID PANEL, STANDARD 09/12/2021 COMPREHENSIVE METABOLIC PANEL 09/12/2021 COMPREHENSIVE METABOLIC PANEL 02/17/2025 CBC (H/H, RBC, INDICES, WBC, PLT) 2020 CBC (INCLUDES DIFF/PLT) 02/17/2025 URINALYSIS, COMPLETE 09/12/2021 HEMOGLOBIN A1c 02/17/2025 PSA (FREE AND TOTAL) 02/17/2025 TSH W/REFLEX TO FT4 02/17/2025 VITAMIN D,25-OH,TOTAL,IA 02/17/2025 FOLATE 02/17/2025 COMPLETE URINALYSIS 07/28/2021 Future Test Test Name Order Date LIPID PANEL, STANDARD 09/12/2022 COMPREHENSIVE METABOLIC PANEL 09/12/2022 CBC (INCLUDES DIFF/PLT) 09/12/2022 URINALYSIS, COMPLETE W/REFLEX TO CULTURE 09/12/2022 HEMOGLOBIN A1c 09/12/2022 Next Appt Details Provider Name:GI BELL Jensen, 10/19/2025 09:00:00 AM, [address] [facility] [address], [place], [address], Insurance Providers Payer Name Payer Address Payer Phone Subscriber Number Group Number Insured Name Patient Relationship to Insured Coverage Start Date Coverage End Date [employer] [place] [address] [place] [id number] [place] [address] [id number] ZACH KESSLER Self - patient is the insured 4 Medications Administered Medication Instructions Date of Administration Dosage Notes MICC B12 INJECTION 01/20/2021 MICC B12 INJECTION 02/03/2021 MICC B12 INJECTION 03/24/2021 [id number]@ [id number] MICC B12 INJECTION 04/21/2021 1 MICC B12 INJECTION 06/03/2021 Lot # [id number] MICC B12 INJECTION 06/22/2021 [id number] MICC B12 INJECTION 07/29/2021 lot # [id number] MICC B12 INJECTION 09/12/2021 lot # [id number] MICC B12 INJECTION 01/27/2022 MICC B12 INJECTION 02/03/2022 lot # [id number] MICC B12 INJECTION 02/10/2022 lot # [id number] MICC B12 INJECTION 05/11/2022 MICC B12 INJECTION 09/12/2022 lot # [id number] MICC B12 INJECTION 10/19/2022 1 mL Lot # [id number] MICC B12 INJECTION 05/22/2023 lot# [id number] MICC B12 INJECTION 06/19/2023 lot# [id number] MICC B12 INJECTION 10/18/2023 lot#[id number] MICC B12 INJECTION 04/10/2024 1.0 mL MICC B12 INJECTION 04/23/2024 1 mL LOT [id number] MICC B12 INJECTION 05/07/2024 1 mL MICC B12 INJECTION 05/22/2024 1.0 mL MICC B12 INJECTION 06/03/2024 1 mL MICC B12 INJECTION 06/18/2024 1 MICC B12 INJECTION 07/02/2024 1 mL MICC B12 INJECTION 03/03/2025 1 mL MICC B12 INJECTION 04/10/2025 1 mL MICC B12 INJECTION 04/29/2025 1 mL MICC B12 INJECTION 05/07/2025 1 mL MICC B12 INJECTION 05/22/2025 1 mL MICC B12 INJECTION 06/08/2025 1 mL MICC B12 INJECTION 06/25/2025 1 mL MICC B12 INJECTION 07/09/2025 1 mL MICC B12 INJECTION 07/21/2025 1 mL lot#[id number] Semaglutide 03/20/2025 1 mL vitamin b12 02/18/2025 1 mL Medical (General) History Medical History History ICD Code Essential hypertension I10 Primary insomnia F51.01 Other chronic pain G89.29 Other hyperlipidemia E78.49 GERD without esophagitis K21.9 Surgical History Surgery Date(Month/Year) right knee replacement 2014 stenosis spinal surgery 2016 right ankle replacement 2018 Hospitalization History Reason Date(Month/Year) [place] chest pain Aug 2023
--- OUTSIDE RECORDS SUMMARY | 2025-07-21 17:21 | XMS_ITS | Encounter Summary ---
Author Organization [facility] Address [address] [place] [phone] Phone Care Team Providers Care Rn Transitional Care Name Role Phone Judi Reza MD Primary Care Provider Unavailabl e Encounter Details Date Type Department Care Team (Late st Contact Info) Description 04/02/2017 Procedure Pass [facility] Periop [address] [place] [address] Social History Tobacco Use Types Packs/Day Years [...] on filedocumented in this encounter Care Teams Rn Transitional Care Relationship Specialty Start Date End Date Judi Reza MD PCP - General Internal Medicine 07/06/15 documented as of this encounter Additional Source Comments The information contained in this document represents components of the legal health record. It is not the complete legal health record.[facility]
--- OUTSIDE RECORDS SUMMARY | 2025-07-21 17:21 | XMS_ITS | Encounter Summary ---
Author Organization [facility] Address [address] [place] [phone] Phone Care Team Providers Care Fraternity Adviser Name Role Phone Judi Reza MD Primary Care Provider Unavailabl e Encounter Details Date Type Department Care Team (Late st Contact Info) Description 03/06/2017 Procedure Pass [facility] [address] [place] [address] Social History Tobacco Use Types Packs/Day Years Used Date Smoking Tobacco: Former Cigarettes Smokeless Tobacco: Former Alcohol Use Standard Drinks/Week Comments Not Asked 0 (1 standard drink = 0.6 oz pur e alcohol) Sex and Gender Information Value Date Recorded Sex Assigned at Not on file Legal Sex Male 2:11 PM EDT Gender Identity Not on file Sexual Orientation Not on file documented as of this encounter Plan of Treatment Not on file documented as of this encounter Visit Diagnoses Not on filedocumented in this encounter Care Teams Fraternity Adviser Relationship Specialty Start Date End Date Judi Reza MD PCP - General Internal Medicine 07/06/15 documented as of this encounter Additional Source Comments The information contained in this document represents components of the legal health record. It is not the complete legal health record.[facility]
--- OUTSIDE RECORDS SUMMARY | 2025-07-21 17:21 | XMS_ITS | Encounter Summary ---
Author Organization [facility] Address [address] [place] [phone] Phone Care Team Providers Care Foundry Worker Name Role Phone Judi Reza MD Primary Care Provider Unavailabl e Encounter Details Date Type Department Care Team (Late st Contact Info) Description 05/20/2018 Procedure [facility] [address] [place] [address] Social History Tobacco Use Types Packs/Day Years [...] on filedocumented in this encounter Care Teams Foundry Worker Relationship Specialty Start Date End Date Judi Reza MD PCP - General Internal Medicine 07/06/15 documented as of this encounter Additional Source Comments The information contained in this document represents components of the legal health record. It is not the complete legal health record.[facility]
--- OUTSIDE RECORDS SUMMARY | 2025-07-21 17:21 | XMS_ITS | Clinical Summary ---
Author Organization [facility] Address [address] [place] [address] Care Team Providers Care Drywall Finisher Foreman Name Role Phone Nikki Ying MD Primary Care Provider [phone] Allergies No known active allergies Medications meloxicam (MOBIC) 15 MG tabletIndicatio ns:Trochanteric bursitis, left hip Take 1 tablet (15 mg total) by mouth daily. 14 tablet 4 Active SUPPLY DME MISCIndications :Bilateral foot pain Rx: Shoe wear evaluation, Custom Cushion Inserts ARYNA Dx: RAYNA FT pain, Neuropathy, s/p fusion [...] Health Maintenance Due Date Last Done Comments Advance Care Planning 1955 Hepatitis C Virus Screening 1955 DTaP/Tdap/Td Vaccines (1 - Tdap) 1972 Colonoscopy 1998 Pneumococcal Vaccines 50+ (1 of 1 - PCV) 2003 Zoster (Shingles) Vaccine (1 of 2) 2003 Influenza Vaccine 05/22/2025 COVID-19 Vaccine ( - 2023-2 5 season) 2025 RSV Vaccine 60 years and old er and Patients (1 - 1-dose 75+ series) 2028 Hepatitis B Vaccines Aged Out No long er eligible based on patient's age to complete this topic Insurance [employer] [facility] MEDICARE Care Teams Drywall Finisher Foreman Relationship Specialty Start Date End Date Nikki Ying MD [address] [place] [address] PCP - General Internal Medicine 02/27/24
--- OUTSIDE RECORDS SUMMARY | 2025-07-21 17:21 | XMS_ITS | Encounter Summary ---
Author Organization [facility] Address [address] [place] [phone] Phone Care Team Providers Care Lead Based Paint Technician Name Role Phone Judi Reza MD Primary Care Provider Unavailabl e Encounter Details Date Type Department Care Team (Late st Contact Info) Description 03/13/2017 Procedure [facility] [address] [place] [address] Social History Tobacco Use Types Packs/Day Years [...] on filedocumented in this encounter Care Teams Lead Based Paint Technician Relationship Specialty Start Date End Date Judi Reza MD PCP - General Internal Medicine 07/06/15 documented as of this encounter Additional Source Comments The information contained in this document represents components of the legal health record. It is not the complete legal health record.[facility]
--- OUTSIDE RECORDS SUMMARY | 2025-07-21 17:21 | XMS_ITS | Encounter Summary ---
Author Organization [facility] Address [address] [place] [address] Phone Care Team Providers Care Chief Dog License Inspector Name Role Phone Judi Reza MD Primary Care Provider Unavailabl e Encounter Details Date Type Department Care Team (Late st Contact Info) Description 04/21/2016 Transcribe Orders [facility] [address] [address] [email or web address] Social History Tobacco Use Types Packs/Day Years Used Date Smoking Tobacco: Former Cigarettes Alcohol Use Standard Drinks/Week Comments Not Asked 0 (1 standard drink = 0.6 oz pur e alcohol) Sex and Gender Information Value Date Recorded Sex Assigned at Not on file Legal Sex Male 2:11 PM EDT Gender Identity Not on file Sexual Orientation Not on file documented as of this encounter Plan of Treatment Not on file documented as of this encounter Results * XR Chest Outside (No Interpretation) (04/21/2016 12:45 AM EDT) Narrative [facility] - 04/21/2016 9:58 AM EDT This study is for PACS storage only and not for interpretation. us Sana Delgado MD, MPH IMG OUTSIDE IMAGING W/OU T INTERPRETATION Final Result [facility] * XR Chest Outside (No Interpretation) (04/21/2016 12:30 AM EDT) Narrative [facility] - 04/21/2016 9:58 AM EDT This study is for PACS storage only and not for interpretation. Sana Delgado MD, MPH IMG OUTSIDE IMAGING W/OU T INTERPRETATION Final Result Performing Organization Address [facility] de Phone Number [email or web address] * XR Chest Outside (No Interpretation) (04/21/2016 12:15 AM EDT) Narrative MATEUSIPIO_[facility] - 04/21/2016 9:58 AM EDT This study is for PACS storage only and not for interpretation. us Sana Delgado MD, MPH IMG OUTSIDE IMAGING W/OU T INTERPRETATION Final Result Performing Organization Address [facility] Phone Number [email or web address] * XR Chest Outside (No Interpretation) (04/21/2016 12:00 AM EDT) Narrative MATE[facility]IPIO_[facility] - 04/21/2016 9:58 AM EDT This study is for PACS storage only and not for interpretation. us Sana Delgado MD, MPH IMG OUTSIDE IMAGING W/OU T INTERPRETATION Final Result Performing Organization Address [facility] Phone Number [email or web address] documented in this encounter Visit Diagnoses Not on filedocumented in this encounter Care Teams Chief Dog License Inspector Relationship Specialty Start Date End Date Judi Reza MD PCP - General Internal Medicine 07/06/15 documented as of this encounter Additional Source Comments The information contained in this document represents components of the legal health record. It is not the complete legal health record.[facility]
--- OUTSIDE RECORDS SUMMARY | 2025-07-21 17:21 | XMS_ITS | Encounter Summary ---
Author Organization [facility] Address [address] [place] [address] Phone Care Team Providers Care Cath Lab Manager Name Role Phone Judi Reza MD Primary Care Provider Unavailabl e Encounter Details Date Type Department Care Team (Late st Contact Info) Description 06/26/2018 Procedure Pass BWF Periop 6th floor [address] [place] [address] Social History Tobacco Use Types Packs/Day Years [...] on filedocumented in this encounter Care Teams Cath Lab Manager Relationship Specialty Start Date End Date Judi Reza MD PCP - General Internal Medicine 07/06/15 documented as of this encounter Additional Source Comments The information contained in this document represents components of the legal health record. It is not the complete legal health record.[facility]
--- OUTSIDE RECORDS SUMMARY | 2025-07-21 17:22 | XMS_ITS | Clinical Summary ---
Author Organization [facility] Address [address] [facility] [address] [place] [address] Phone Care Team Providers Care Supervisor Grips Name Role Phone Judi Reza MD Primary Care Provider Unavailabl e Allergies No known active allergies Medications hydroCHLOROthia zide (HYDRODIURIL) 25 MG tablet Take 25 mg by mouth daily. 7 Active metoprolol succinate (TOPROL-XL) 100 MG 24 hr tablet Take 100 mg by mouth daily. 3 7 Active omeprazole (PRILOSEC) 20 MG capsule Take 20 mg by mouth daily. 7 Active VIAGRA 100 mg tablet Take 100 mg by mouth as needed. 5 7 Active traZODone (DESYREL) 50 MG tablet Take 50 mg by mouth nightly. Active ibuprofen (ADVIL,MOTRIN) 800 MG tablet Take 1 tablet (800 mg total) by mouth 3 (three) times a day. 90 tablet 1 7 Active senna (SENOKOT) 8.6 mg tablet Take 2 tablets by mouth daily. While taking narcotics to prevent constipation 20 tablet 8 Active ondansetron (ZOFRAN) 4 MG tablet Take 1 tablet (4 mg total) by mouth every 8 (eight) hours as needed for nausea. 4 tablet 8 Active acetaminophen (TYLENOL) 325 mg tablet Take 3 tablets (975 mg total) by mouth 3 (three) times a day. 120 tablet 8 Active oxyCODONE 5 MG immediate release tabletIndicatio ns:Ankle arthritis Take 1 tablet (5 mg total) by mouth every 6 (six) hours as needed for moderate pain. Pt. 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 Lumbar stenosis 04/02/2017 Family History Medical History Relation Comments Diabetes Father Brain cancer Mother Brain tumor Mother Relation Status Comments Father Mother Social History Tobacco Use Types Packs/Day Years [...] on file Sexual Orientation Not on file Last Filed Vital Signs Vital Sign Reading Time Taken Comments Blood Pressure 106/69 06/26/2018 2:00 PM EDT Pulse 49 06/26/2018 2:00 PM EDT Temperature 36.8 C (98.3 F) 10/10/2018 8:50 AM EST Respiratory Rate 12 06/26/2018 2:00 PM EDT Oxygen Saturation 96% 06/26/2018 2:54 PM EDT Inhaled Oxygen Concentration - - Weight 120.2 kg (265 lb) 10/10/2018 8:50 AM EST Height 195.6 cm (6' 5 ) 10/10/2018 8:50 AM EST Body Mass Index 31.42 10/10/2018 8:50 AM EST Plan of Treatment Health Maintenance Due Date Last Done Comments LIPID PANEL 1953 DEPRESSION SCREENING 1965 SMOKING Hx and SMOKELESS TOBACCO SCREENING 1966 HEPATITIS C SCREENING 1971 COLOGUARD 1998 COLONOSCOPY 1998 COLORECTAL CANCER SCREENING 1998 FIT TEST 1998 FOBT 1998 SIGMOIDOSCOPY 1998 VIRTUAL COLONOSCOPY 1998 ZOSTER VACCINES (1 of 2) 2003 Adult Td,Tdap Booster 06/16/2013 06/16/2003 ABDOMINAL AORTIC ANEURYSM (AAA) SCREENING 2018 POTASSIUM LEVEL 06/12/2019 06/12/2018, 03/22, 03/27/2017 PNEUMOCOCCAL VACCINES (50+ years) (2 of 2 - PPSV23) 10/08/2021 10/08/2020 INFLUENZA VACCINE (#1) 2025 , 07/16/2009, 07/29/2008, Additional history exists COVID-19 VACCINE (3 - season) 2025 01/13/2021, 12/16/2020 RSV VACCINE (1 - 1-dose 75+ series) 2028 HEPATITIS A VACCINES Aged Out 03/10/2008 No long er eligible based on patient's age to complete this topic HIB VACCINES Aged Out No longer eligi ble based on patient's age to complete this topic MENINGOCOCCAL VACCINES (ACWY) Aged Out No longer eligible based on patient's age to complete this topic MENINGOCOCCAL VACCINES (B) Aged Out N o longer eligible based on patient's age to complete this topic Medical Devices Implanted Type Area Tile Trimmer Device Identifier Shelf Expiration Date Model / Serial / Lot Knee Procedures Procedure Name Priority Date/Time Associated Diagnosis Comments BASIC METABOLIC PANEL Routine 06/12/2018 12:02 PM EDT Preop testing from Last 3 Months or Most Recently Relevant to Health Maintenance Results * (ABNORMAL) Basic metabolic panel (06/12/2018 12:02 PM EDT) SODIUM 138 136 - 145 mmol/L [facility] CHLORIDE 96(L) 98 - 107 mmol/L [facility] POTASSIUM 3.7 3.4 - 5.0 mmol/L [facility] Comment:Trace Hemolysis. Pot assium result not affected. CO2 29 22 - 31 mmol/L [facility] BUN 20 6 - 23 mg/dL [facility] CREATININE 1.18 0.50 - 1.20 mg/dL [facility] GLUCOSE 93 70 - 115 mg/dL [facility] CALCIUM 9.4 8.6 - 10.7 mg/dL [facility] EGFR 64 >60 mL/min/1.7 3m2 [facility] Comment:If patient is black, multiply result by 1.159. Estimated glomerular filtration rate calculated using the CKD-EPI equation. ANION GAP 13 3 - 15 mmol/L [facility] 06/12/2018 12:0 2 PM EDT 06/12/2018 12:28 PM EDT Sharon Beal NP LAB BLOOD ORDERABLES Final Result [facility] [address] [place] [address] from Last 3 Months or Most Recently Relevant to Health Maintenance Insurance [facility] [place] [address] [place] [address] PPO EPO PPO EPO PPO EPO Advance Directives For more information, please contact: [phone] (9AM - 5PM [facility], Sunday-Sunday) Documents on File Type Date Recorded Patient Timber Surveyor Expl anation Healthcare Proxy 04/03/2017 7:59 AM * Full Code (Presumed) (Latest Code Status on File) Date Activated Date Inactivated Comments 04/02/2017 11:43 PM 04/05/2017 4:49 PM Healthcare Agents on File Name Relationship Healthcare Agent Relationshi p Communication Savanna Mao Life Partner .Primary Health Care Agent (Proxy form on file) Care Teams Supervisor Grips Relationship Specialty Start Date End Date Judi Reza MD PCP - General Internal Medicine 07/06/15 Additional Source Comments The information contained in this document represents components of the legal health record. It is not the complete legal health record.[facility]
--- OUTSIDE RECORDS SUMMARY | 2025-07-21 17:22 | XMS_ITS | Encounter Summary ---
Author Organization [facility] Address [address] [place] [address] Phone Care Team Providers Care Peoplesoft Functional Analyst Name Role Phone Judi Reza MD Primary Care Provider Unavailabl e Encounter Details Date Type Department Care Team (Late st Contact Info) Description 02/05/2019 Procedure Pass BWF Periop 1st floor [address] [place] [address] Social History Tobacco Use Types Packs/Day Years [...] on filedocumented in this encounter Care Teams Peoplesoft Functional Analyst Relationship Specialty Start Date End Date Judi Reza MD PCP - General Internal Medicine 07/06/15 documented as of this encounter Additional Source Comments The information contained in this document represents components of the legal health record. It is not the complete legal health record.[facility]
[2025-07-21 17:47] LABS: MANUAL DIFF FLAG NO
[2025-07-21 17:48] LABS: Hematocrit 37.8 % (42.0-52.0); Hemoglobin 14.0 g/dl (14.0-18.0); Imm Gran Abs Auto 0.02 X10*3/uL (0.00-0.03); Imm Gran Pct Auto 0.2 % (0.0-0.4); Lymphocytes Absolute Auto 1.7 X10*3/uL (1.2-4.9); Mean Corpuscular HGB Conc 37.0 g/dl (31.0-36.0); Mean Corpuscular Hemoglobin 32.8 pg (27.0-33.0); Mean Corpuscular Volume 88.5 fL (80.0-98.0); NRBC Abs Auto 0.000 X10*3/uL (0.0-0.012); NRBC Pct Auto 0.0 /100WBC (0.0-0.2); Platelet Count 179 X10*3/uL (160-400); Red Blood Count 4.27 X10*6/uL (4.60-5.80); White Blood Count 8.2 X10*3/uL (4.8-10.8)
[2025-07-21 18:03] LABS: Alanine Aminotransferase 27 U/L (0-40); Albumin Level 4.6 g/dL (3.5-5.0); Alkaline Phosphatase 56 U/L (39-117); Anion Gap 12 (12-20); Aspartate Amino Transferase 26 U/L (5-37); Blood Urea Nitrogen 20 mg/dL (9-16); Calcium 9.7 mg/dL (8.4-10.2); Carbon Dioxide 28 mmol/L (22-29); Chloride 104 mmol/L (96-108); Creatinine Clr Calc Pharmacy 114.2; Estimated Glomerular Filt Rate > 60; Magnesium 1.9 mg/dL (1.6-2.6); Potassium 3.7 mmol/L (3.3-5.1); Sodium 140 mmol/L (135-145); Total Protein 7.4 g/dL (6.5-8.0)
[2025-07-21 18:18] VITALS: BP 122/68; PULSE 60; RESP 16; TEMP 37; O2SAT 95
== END 2025-07-21 18:19 | disposition home or self-care (01) ==
PROVIDERS: Physician Assistant Medical; Emergency Provider Emergency Medicine; PCP Internal Medicine
DX: L03.115 Cellulitis of right lower limb (principal); R60.0 Localized edema; M79.604 Pain in right leg; I10 Essential (primary) hypertension; E78.5 Hyperlipidemia, unspecified; G47.33 Obstructive sleep apnea (adult) (pediatric); Z99.89 Dependence on other enabling machines and devices
CPT/HCPCS: 36415; 73590; 73610; 80048; 80076; 83605; 83735; 85025; 85652; 86140; 87040; 93971; 99284

== ENCOUNTER → 2025-07-21 15:59 | Outpatient (BNV) | payer OTHER, SELFPAY | PROVIDERS: PCP Internal Medicine; Visit Provider Radiology Diagnostic Radiology | DX: M79.604 Pain in right leg (principal); M19.071 Primary osteoarthritis, right ankle and foot; L03.115 Cellulitis of right lower limb | CPT/HCPCS: 73590; 73610; 93971 ==

== ENCOUNTER 2025-09-24 14:38 | Outpatient (REF) | payer OTHER, SELFPAY ==
--- NOTE | 2025-09-24 14:41 | EMG_ITS ---
Chief complaint: Burning pain and numbness in both feet. Right hand numbness and tendency to drop things. Denies neck pain. History of lumbar surgery but no more back pain. Noted atrophy on right first webspace. No other atrophy seen. Reason for referral: Evaluate for neuropathy Referred by: Dr. Wright Procedure done: Right upper extremity, bilateral lower extremity NCS/EMG Precautions and/or limitations: Previous lumbar surgery The limb temperature was monitored continuously and remained between 32-36 degrees C during the performance of the NCS. Ulnar motor NCS was performed with moderate elbow flexion between 70-90 degrees, with across-elbow distance of 10 cm. Nerve Conduction Studies Anti Sensory Summary Table ?Stim Site NR Onset (ms) Norm Onset (ms) Peak (ms) Norm Peak (ms) O-P Amp (?V) Norm O-P Amp Site1 Site2 Delta-0 (ms) Dist (cm) Roosevelt (m/s) Norm Roosevelt (m/s) Right DorsCutan Anti Sensory (Dorsum 5th MC) Wrist NR Wrist Dorsum 5th MC 0.0 Right Median Anti Sensory (2nd Digit) Wrist ? 6.2 6.9 <3.6 4.2 >10 Wrist 2nd Digit 6.2 14.0 23 Right Radial Anti Sensory (Thumb) Forearm ? 1.3 2.8 <3.1 10.4 Forearm Thumb 1.3 0.0 Left Sural Anti Sensory (Lat Mall) Calf NR <4.0 >5.0 Calf Lat Mall 14.0 Right Sural Anti Sensory (Lat Mall) Calf NR <4.0 >5.0 Calf Lat Mall 14.0 Right Ulnar Anti Sensory (5th Digit) Wrist NR <3.7 >15.0 Wrist 5th Digit 14.0 Motor Summary Table ?Stim Site NR Onset (ms) Norm Onset (ms) O-P Amp (mV) Norm O-P Amp iAmp (mV) Amp (1st) (%) Site1 Site2 Delta-0 (ms) Dist (cm) Roosevelt (m/s) Norm Roosevelt (m/s) Right Median Motor (Abd Poll Brev) Wrist ? 11.9 <3.9 1.0 >4.5 1.3 100.0 Elbow Wrist 6.5 25.0 38 >45 Elbow ? 18.4 0.7 0.8 70.0 Left Peroneal Motor (Ext Dig Brev) Ankle ? 6.6 <4.0 0.4 >2.5 0.4 100.0 Ankle Ext Dig Brev 6.6 0.0 B Fib ? 18.2 0.8 0.9 200.0 B Fib Ankle 11.6 38.5 33 >40 Poplt ? 19.5 0.6 0.7 150.0 Poplt B Fib 1.3 4.0 31 >40 Left Tibial Motor (Abd Avendaño Brev) Ankle ? 5.3 <5 0.6 >2.5 0.7 100.0 Ankle Abd Avendaño Brev 5.3 0.0 Knee ? 21.7 0.3 0.3 50.0 Knee Ankle 16.4 44.0 27 >40 Right Ulnar Motor (Abd Dig Minimi) Wrist ? 3.0 <3.0 8.8 >5 10.2 100.0 B Elbow Wrist 5.0 25.0 50 >45 B Elbow ? 8.0 7.7 9.2 87.5 A Elbow B Elbow 1.6 10.0 63 >45 A Elbow ? 9.6 7.6 9.1 86.4 Right Ulnar (FDI) Motor (FDI) Wrist ? 3.9 <3.0 4.3 >5 5.1 100.0 B Elbow Wrist 5.4 24.5 45 >45 B Elbow ? 9.3 3.9 4.7 90.7 A Elbow B Elbow 1.5 10.0 67 >45 A Elbow ? 10.8 3.6 4.4 83.7 EMG ?Side Muscle Nerve Root Ins Act Fibs Psw Amp Dur Poly Recrt Int Pat Comment Right 1stDorInt Ulnar C8-T1 Incr 1+ 1+ Nml Nml 0 Nml Complete Right FlexCarRad Median C6-7 Nml Nml Nml Nml Nml 0 Nml Complete Right Biceps Musculocut C5-6 Nml Nml Nml Nml Nml 0 Nml Complete Right Triceps Radial C6-7-8 Nml Nml Nml Nml Nml 0 Nml Complete Right Deltoid Axillary C5-6 Nml Nml Nml Nml Nml 0 Nml Complete Left AbdHallucis MedPlantar S1-2 Nml Nml Nml Nml Nml 0 Nml Complete Left AntTibialis Dp Br Peron L4-5 Incr 1+ 1+ Nml Nml 0 Nml Complete Left PostTibialis Tibial L5, S1 Nml Nml Nml Nml Nml 0 Nml Complete Left MedGastroc Tibial S1-2 Nml Nml Nml Nml Nml 0 Nml Complete Left VastusMed Femoral L2-4 Nml Nml Nml Nml Nml 0 Nml Complete Right FlexCarpiUln Ulnar C8,T1 Nml Nml Nml Nml Nml 0 Nml Complete Right ExtIndicis Radial (Post Int) C7-8 Nml Nml Nml Nml Nml 0 Nml Complete Paraspinal EMG ?Side Muscle Nerve Root Ins Act Fibs Psw Comment Right Cervical Upper Rami Nml Nml Nml Right Cervical Mid Rami Nml Nml Nml Right Cervical Lower Rami Nml Nml Nml FINDINGS: Right median motor nerve showed normal distal latency, small amplitude and slow conduction velocity. Right ulnar motor nerve, when recording at FDI, showed prolonged distal latency, small amplitude and normal conduction velocity. No conduction block across fibular neck. Right median sensory nerves showed prolonged peak latencies and small amplitude. Right ulnar sensory nerve absent response. Right radial sensory nerve showed normal peak latencies, slightly small amplitude. Left peroneal nerve showed very small, almost absent responses. Left tibial nerve showed very small, almost absent responses. Bilateral sural nerves absent response. Concentric needle EMG was performed in selected muscles of the right upper extremity, left lower extremity, cervical paraspinals. Study revealed signs of electric abnormalities as shown in the table above. Left tibialis anterior showed increased insertional activity, PSWs and fibrillations. Right FDI showed increased insertional activity, PSWs and fibrillations. Cervical paraspinals did not show any increased denervation. IMPRESSION: 1. This is an abnormal study. 2. 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 3. There is evidence for superimposed right median neuropathy at the wrist (Carpal Tunnel Syndrome), and superimposed right ulnar neuropathy at the elbow. 4. Presence of denervation on right tibialis anterior neither support nor contradict presence of neuropathy. However I suspect it may be related to past history of lumbar radiculopathy and surgery. CLINICAL COMMENT: Further clinical correlation recommended. Thank you for your kind referral. Sandy Oliveira MD, ROSALIND Board Certified, [place] Board of Physical Medicine and Rehabilitation (ABPMR) Board Certified, [place] Board of Electrodiagnostic Medicine (ABEM) CODIN [id number] x 2 extremities MTDD
--- OUTSIDE RECORDS SUMMARY | 2025-09-24 20:48 | XMS_ITS | Clinical Summary ---
Author Organization [facility] Address [address] [place] [address] Care Team Providers Care Blackjack Pit Boss Name Role Phone Nikki Ying MD Primary Care Provider [phone] Allergies No known active allergies Medications meloxicam [...] - 2023-2 5 season) 2025 RSV Vaccine 50 years and old er and Patients (1 - 1-dose 75+ series) 2028 Hepatitis B Vaccines Aged Out No long er eligible based on patient's age to complete this topic Insurance [facility] MEDICARE Care Teams Blackjack Pit Boss Relationship Specialty Start Date End Date Nikki Ying MD [address] [place] [address] PCP - General Internal Medicine 02/27/24
== END 2025-09-24 14:39 | disposition home or self-care (01) ==
LOC: HO.NEURO 14:38
PROVIDERS: PCP Internal Medicine; Visit Provider Psychiatry & Neurology Neurology
DX: R20.0 Anesthesia of skin (principal); R20.2 Paresthesia of skin
CPT/HCPCS: 95886; 95911

== ENCOUNTER → 2025-09-24 14:41 | Outpatient (BNV) | payer OTHER, SELFPAY | PROVIDERS: PCP Internal Medicine; Visit Provider Physical Medicine & Rehabilitation | DX: R20.0 Anesthesia of skin (principal) | CPT/HCPCS: 95886; 95912 ==